=== PATIENT | male | born 1935 | race Caucasian/White ===

== ENCOUNTER 2017-07-07 17:51 | Inpatient (IN) | payer MEDICARE, OTHER ==
[2017-07-07 18:55] LABS: BASO # 0.1 10^3/uL (0.0-0.2); BASO % 0.7 % (0.0-1.0); EOS # 0.1 10^3/uL (0.0-0.50); EOS % 1.6 % (0.0-3.0); HEMATOCRIT 39.2 % (42.0-52.0); HEMOGLOBIN 13.2 g/dl (13.5-17.5); IMMATURE GRANULOCYTE % 0.9 % (0-3.0); LYMPH # 1.8 10^3/uL (1.5-4.5); LYMPH % 21.5 % (24.0-44.0); MEAN CORPUSCULAR HEMOGLOBIN 35.1 pg (27.0-33.0); MEAN CORPUSCULAR HGB CONC 33.7 g/dl (32.0-36.5); MEAN CORPUSCULAR VOLUME 104.3 fl (80.0-96.0); MONO % 12.2 % (0.0-5.0); NEUTROPHILS # 5.4 10^3/uL (1.8-7.7); NEUTROPHILS % 63.1 % (36.0-66.0); PLATELET COUNT, AUTOMATED 196 10^3/uL (150-450); RED BLOOD COUNT 3.76 10^6/uL (4.30-6.10); RED CELL DISTRIBUTION WIDTH 13.2 % (11.5-14.5); WHITE BLOOD COUNT 8.5 10^3/uL (4.0-10.0)
[2017-07-07] MEDS: NS 1,000 ML IV (19:10)
[2017-07-07 19:11] LABS: INR 2.63; PROTHROMBIN TIME 29.2 SECONDS (12.4-14.5)
[2017-07-07 19:20] LABS: ALBUMIN 3.8 GM/DL (3.2-5.2); ALBUMIN/GLOBULIN RATIO 0.97 (1.00-1.93); ALKALINE PHOSPHATASE 75 U/L (45-117); ALT/SGPT 19 U/L (12-78); ANION GAP 8 MEQ/L (8-16); AST/SGOT 15 U/L (7-37); BILIRUBIN,DIRECT 0.1 MG/DL (0.0-0.2); BILIRUBIN,TOTAL 0.3 MG/DL (0.2-1.0); BLOOD UREA NITROGEN 30 MG/DL (7-18); CALCIUM LEVEL 8.6 MG/DL (8.8-10.2); CARBON DIOXIDE LEVEL 29 MEQ/L (21-32); CHLORIDE LEVEL 105 MEQ/L (98-107); GLOMERULAR FILTRATION RATE > 60.0 (>35); GLUCOSE, FASTING 129 MG/DL (70-100); LIPASE 108 U/L (73-393); POTASSIUM SERUM 3.8 MEQ/L (3.5-5.1); SODIUM LEVEL 142 MEQ/L (136-145); TOTAL PROTEIN 7.7 GM/DL (6.4-8.2)
[2017-07-07] MEDS: PANTOPRAZOLE 40MG TAB (PROTONIX) PO (19:50)
[2017-07-07] MEDS ORDERED: ONDANSETRON 4MG/2ML VIAL (J2405) IV (20:45)
[2017-07-07] MEDS ORDERED: CAPSAICIN 0.025% CR 60 GM TOP (22:00)
[2017-07-07] MEDS ORDERED: POLYVINYL ALCOHOL OPHTH SOLN 15 ML(LIQUITEARS) OU (22:00)
[2017-07-07] MEDS: TERAZOSIN 5 MG CAP PO (23:58)
[2017-07-07] MEDS: diphenhydrAMINE 50 MG CAP PO (23:58)
[2017-07-07] MEDS: FAMOTIDINE 20 MG TAB PO (23:58)
[2017-07-08 00:10] LABS: HEMATOCRIT 37.2 % (42.0-52.0); HEMOGLOBIN 12.1 g/dl (13.5-17.5); MEAN CORPUSCULAR HEMOGLOBIN 34.3 pg (27.0-33.0); MEAN CORPUSCULAR HGB CONC 32.5 g/dl (32.0-36.5); MEAN CORPUSCULAR VOLUME 105.4 fl (80.0-96.0); PLATELET COUNT, AUTOMATED 168 10^3/uL (150-450); RED BLOOD COUNT 3.53 10^6/uL (4.30-6.10); RED CELL DISTRIBUTION WIDTH 13.2 % (11.5-14.5); WHITE BLOOD COUNT 7.8 10^3/uL (4.0-10.0)
[2017-07-08 04:15] LABS: HEMATOCRIT 35.9 % (42.0-52.0); HEMOGLOBIN 11.8 g/dl (13.5-17.5); MEAN CORPUSCULAR HEMOGLOBIN 34.5 pg (27.0-33.0); MEAN CORPUSCULAR HGB CONC 32.9 g/dl (32.0-36.5); PLATELET COUNT, AUTOMATED 166 10^3/uL (150-450); RED BLOOD COUNT 3.42 10^6/uL (4.30-6.10); RED CELL DISTRIBUTION WIDTH 13.2 % (11.5-14.5); WHITE BLOOD COUNT 6.7 10^3/uL (4.0-10.0)
[2017-07-08 04:35] LABS: INR 2.59; PROTHROMBIN TIME 28.8 SECONDS (12.4-14.5)
[2017-07-08 04:47] LABS: ANION GAP 6 MEQ/L (8-16); BLOOD UREA NITROGEN 22 MG/DL (7-18); CALCIUM LEVEL 8.2 MG/DL (8.8-10.2); CARBON DIOXIDE LEVEL 31 MEQ/L (21-32); CHLORIDE LEVEL 107 MEQ/L (98-107); CREATININE FOR GFR 0.81 MG/DL (0.70-1.30); GLOMERULAR FILTRATION RATE > 60.0 (>35); GLUCOSE, FASTING 97 MG/DL (70-100); POTASSIUM SERUM 3.7 MEQ/L (3.5-5.1); SODIUM LEVEL 144 MEQ/L (136-145)
[2017-07-08] MEDS: LACTIC ACID 12% LOTION 225 GM BTL TOP ×2 (09:00→20:33)
[2017-07-08] MEDS: FUROSEMIDE 20 MG TAB PO ×2 (09:00→18:00)
[2017-07-08] MEDS: POTASSIUM CHLORIDE 10 MEQ SR TABLET PO (09:01)
[2017-07-08] MEDS: traMADol 50 MG TAB PO ×5 (09:03→20:31)
[2017-07-08] MEDS: PANTOPRAZOLE 40MG TAB (PROTONIX) PO (09:04)
[2017-07-08] MEDS: FAMOTIDINE 20 MG TAB PO ×2 (09:04→20:33)
[2017-07-08] MEDS: ATENOLOL 50 MG TAB PO (10:49)
[2017-07-08] MEDS: SIMVASTATIN 40 MG TAB PO (14:24)
[2017-07-08] MEDS: WARFARIN SOD 7.5 MG TAB PO (18:01)
[2017-07-08] MEDS: diphenhydrAMINE 50 MG CAP PO (20:33)
[2017-07-08] MEDS: TERAZOSIN 5 MG CAP PO (20:33)
[2017-07-09] MEDS ORDERED: SLF 3 ML SYR IV (03:30)
[2017-07-09 05:40] LABS: HEMATOCRIT 36.3 % (42.0-52.0); HEMOGLOBIN 11.8 g/dl (13.5-17.5)
[2017-07-09 05:50] LABS: INR 2.24; PROTHROMBIN TIME 25.6 SECONDS (12.4-14.5)
[2017-07-09 05:52] LABS: ANION GAP 5 MEQ/L (8-16); BLOOD UREA NITROGEN 17 MG/DL (7-18); CALCIUM LEVEL 8.6 MG/DL (8.8-10.2); CARBON DIOXIDE LEVEL 31 MEQ/L (21-32); CHLORIDE LEVEL 104 MEQ/L (98-107); CREATININE FOR GFR 0.84 MG/DL (0.70-1.30); GLOMERULAR FILTRATION RATE > 60.0 (>35); GLUCOSE, FASTING 110 MG/DL (70-100); POTASSIUM SERUM 3.5 MEQ/L (3.5-5.1); SODIUM LEVEL 140 MEQ/L (136-145)
[2017-07-09] MEDS: SLF 3 ML SYR IV ×2 (06:00→13:42)
[2017-07-09] MEDS: LACTIC ACID 12% LOTION 225 GM BTL TOP (09:00)
[2017-07-09] MEDS: ATENOLOL 50 MG TAB PO (09:00)
[2017-07-09] MEDS: FUROSEMIDE 20 MG TAB PO (09:16)
[2017-07-09] MEDS: PANTOPRAZOLE 40MG TAB (PROTONIX) PO (09:18)
[2017-07-09] MEDS: traMADol 50 MG TAB PO ×2 (09:18→13:42)
[2017-07-09] MEDS: POTASSIUM CHLORIDE 10 MEQ SR TABLET PO (09:18)
[2017-07-09] MEDS: FAMOTIDINE 20 MG TAB PO (09:20)
[2017-07-09] MEDS: SIMVASTATIN 40 MG TAB PO (13:42)
== END 2017-07-09 14:47 | disposition home or self-care (01) | DRG 378 ==
LOC: M ED 17:51 → M ED INP 20:32 → M PCU 22:22
DX: K62.5 Hemorrhage of anus and rectum (principal); D62 Acute posthemorrhagic anemia; I50.9 Heart failure, unspecified; I48.91 Unspecified atrial fibrillation; Z79.01 Long term (current) use of anticoagulants; I11.0 Hypertensive heart disease with heart failure; I25.10 Atherosclerotic heart disease of native coronary artery without angina pectoris; Z79.899 Other long term (current) drug therapy; R00.1 Bradycardia, unspecified; E11.9 Type 2 diabetes mellitus without complications; Z96.651 Presence of right artificial knee joint; Z96.652 Presence of left artificial knee joint; Z95.2 Presence of prosthetic heart valve; Z87.891 Personal history of nicotine dependence; K64.8 Other hemorrhoids; K63.5 Polyp of colon

== ENCOUNTER 2017-09-05 10:00 | Day surgery (SDC) | payer MEDICARE, OTHER ==
[2017-09-05] MEDS ORDERED: PROPOFOL 200 MG/20 ML VIAL As Ordered (10:52)
[2017-09-05] MEDS ORDERED: LIDOCAINE 2% INJ 100 MG/5 ML SDV (FOR ANES.) As Ordered (10:52)
[2017-09-05] MEDS: NS 1,000 ML IV (11:09)
== END 2017-09-05 13:30 | disposition home or self-care (01) ==
LOC: M OPP 10:00
DX: K62.5 Hemorrhage of anus and rectum (principal); I48.91 Unspecified atrial fibrillation; Z95.5 Presence of coronary angioplasty implant and graft; I25.10 Atherosclerotic heart disease of native coronary artery without angina pectoris; I11.0 Hypertensive heart disease with heart failure; E78.5 Hyperlipidemia, unspecified; R00.8 Other abnormalities of heart beat; I50.9 Heart failure, unspecified; E11.9 Type 2 diabetes mellitus without complications; M10.9 Gout, unspecified; K21.9 Gastro-esophageal reflux disease without esophagitis; D64.9 Anemia, unspecified; M19.90 Unspecified osteoarthritis, unspecified site; G47.30 Sleep apnea, unspecified; Z85.46 Personal history of malignant neoplasm of prostate; Z92.3 Personal history of irradiation; N40.1 Benign prostatic hyperplasia with lower urinary tract symptoms; Z96.653 Presence of artificial knee joint, bilateral; Z87.891 Personal history of nicotine dependence; Z88.5 Allergy status to narcotic agent; Z79.82 Long term (current) use of aspirin; Z79.899 Other long term (current) drug therapy; Z79.01 Long term (current) use of anticoagulants; Z79.84 Long term (current) use of oral hypoglycemic drugs
CPT/HCPCS: 45378

== ENCOUNTER → 2017-09-13 | Outpatient (CLI) | payer MEDICARE, OTHER ==
[2017-09-13 10:22] LABS: INR 0.98; PROTHROMBIN TIME 13.1 SECONDS (12.1-14.4)
== END ==
LOC: M LAB 09:38
DX: M43.10 Spondylolisthesis, site unspecified (principal); M25.522 Pain in left elbow; M51.36 Other intervertebral disc degeneration, lumbar region; M79.1 Myalgia; M47.817 Spondylosis without myelopathy or radiculopathy, lumbosacral region; Z79.01 Long term (current) use of anticoagulants
CPT/HCPCS: 85610

== ENCOUNTER 2017-10-03 06:50 | Day surgery (SDC) | payer MEDICARE, OTHER ==
[2017-10-03] MEDS ORDERED: NS 1,000 ML IV (07:00)
[2017-10-03] MEDS ORDERED: PROPOFOL 200 MG/20 ML VIAL As Ordered (08:02)
[2017-10-03] MEDS ORDERED: LIDOCAINE 2% INJ 100 MG/5 ML SDV (FOR ANES.) As Ordered (08:02)
== END 2017-10-03 09:22 | disposition home or self-care (01) ==
LOC: M OPP 06:50
DX: D12.3 Benign neoplasm of transverse colon (principal); K64.8 Other hemorrhoids; Q43.8 Other specified congenital malformations of intestine; K92.1 Melena; I10 Essential (primary) hypertension; E78.5 Hyperlipidemia, unspecified; E11.9 Type 2 diabetes mellitus without complications; G47.30 Sleep apnea, unspecified; K21.9 Gastro-esophageal reflux disease without esophagitis; M19.90 Unspecified osteoarthritis, unspecified site; I48.91 Unspecified atrial fibrillation; Z79.82 Long term (current) use of aspirin; Z79.899 Other long term (current) drug therapy; Z95.5 Presence of coronary angioplasty implant and graft; Z96.653 Presence of artificial knee joint, bilateral; Z85.46 Personal history of malignant neoplasm of prostate; Z92.3 Personal history of irradiation
CPT/HCPCS: 45385

== ENCOUNTER → 2018-08-29 | Outpatient (CLI) | payer MEDICARE, OTHER ==
[~2018-08-29] MED LIST: ACET1TAB55 PO; ACET500T15 PO; ALLO10TA PO; AMMO12CR7 TOP; AMMO12LO TOP; ARTISOL2 OP; ASPI81CH49 PO; ASPI81TA26 PO; ATEN25TA PO; ATEN50TA2 PO; BENA25TA10 PO; CAPS0.022 TOP; CAPS0.1C2 EX; CLAR10CA3 PO; CLOP75TA2 PO; COUM1TAB17 PO; COUM2.5T17 PO; COUM7.5T PO; DIPH50CA PO; DULC5TAB PO; K-TA10TA2 PO; LASI20TA3 PO; LASI40TA9 PO; LIDO4CRE4 TOP; LIDO5DIS41 TD; LORA10CA PO; LUBR1DRO OU; METF500T13 PO; MIRA3350 PO; MIRA33504 PO; MULTCAP11 PO; NITR0.4S14 SL; PANT40TA3 PO; POTA10TA16 PO; PREV1.1G DT; RANI150T PO; RANI1SYP PO; RENATROPHIN PO; SIMV80TA13 PO; STOO100C PO; TERA10CA3 PO; TERA5CAP3 PO; TRAM50TA2 PO; VITMTA PO; ZYLO300T6 PO; [UNRECOGNIZED DRUG - OTHER] PO
--- NOTE | 2018-08-29 19:36 | REP ---
CHEST, TWO VIEWS: Two views of the chest are performed and compared to prior study of 08/10/2010. The stomach is moderately distended with air. There is mild elevation of the left hemidiaphragm. There is mild bibasilar fibroatelectatic change. The heart is upper limits of normal in size. There is mild calcification and tortuosity of the thoracic aorta. The mediastinal silhouette is unchanged. There are degenerative changes of the spine. IMPRESSION: Mild bibasilar fibroatelectatic changes. No acute infiltrate. Electronically Signed by Andrés Allen MD 08/29/2018 07:51 P
[2018-08-29 20:02] LABS: BASO # 0.1 10^3/uL (0.0-0.2); BASO % 0.9 % (0.0-1.0); EOS # 0.2 10^3/uL (0.0-0.50); EOS % 1.7 % (0.0-3.0); LYMPH % 21.6 % (24.0-44.0); MEAN CORPUSCULAR HEMOGLOBIN 35.7 pg (27.0-33.0); MEAN CORPUSCULAR HGB CONC 33.3 g/dl (32.0-36.5); MEAN CORPUSCULAR VOLUME 107.1 fl (80.0-96.0); MONO # 1.3 10^3/uL (0.0-0.8); MONO % 13.7 % (0.0-5.0); NEUTROPHILS # 5.6 10^3/uL (1.8-7.7); NEUTROPHILS % 60.7 % (36.0-66.0); PLATELET COUNT, AUTOMATED 229 10^3/uL (150-450); WHITE BLOOD COUNT 9.2 10^3/uL (4.0-10.0)
== END ==
LOC: M ADAMS 16:49
PROVIDERS: ATTEND Physician Assistant Medical
DX: J20.9 Acute bronchitis, unspecified (principal)

== ENCOUNTER 2018-11-07 17:14 | Emergency (ER) | payer MEDICARE, OTHER ==
[~2018-11-07] VITALS: Ht 185.4 cm; Wt 131.8 kg
[~2018-11-07 17:14] MED LIST changes: +MM S100C PO; -STOO100C PO
--- NOTE | 2018-11-07 18:04 | REPVR ---
EXAM: CT Head Without Contrast EXAM DATE/TIME: 11/07/2018 5:31 PM CLINICAL HISTORY: 83 years old, male; Injury or trauma; Fall; Initial encounter; Blunt trauma (contusions or hematomas); Consciousness not specified; Additional info: Fall on coumadin TECHNIQUE: Imaging protocol: Computed tomography images of the head without contrast. Radiation optimization: All CT scans at this facility use at least one of these dose optimization techniques: automated exposure control; mA and/or kV adjustment per patient size (includes targeted exams where dose is matched to clinical indication); or iterative reconstruction. COMPARISON: No relevant prior studies available. FINDINGS: Brain: Ventricles, basilar cisterns, and sulci are normal in size for age. No intracranial mass, mass effect or midline shift. No acute intracranial hemorrhage. No focal effacement of cortical sulci to indicate acute cortical infarct. Mild decreased attenuation in periventricular/centrum semiovale white matter. Bones/joints: No calvarial fracture or destructive process. Sinuses: Imaged paranasal sinuses are clear. Mastoid air cells: Mastoid air cells are normally aerated. Orbits: Imaged orbits are unremarkable. Soft tissues: Large right forehead and periorbital scalp hematoma. IMPRESSION: Right supraorbital and forehead extracranial scalp hematoma. No underlying acute intracranial abnormality. Electronically signed by: Carlos Alberto Machuca On 11/07/2018 18:04:34 PM
--- NOTE | 2018-11-07 18:06 | REPVR ---
EXAM: CT Cervical Spine Without Contrast EXAM DATE/TIME: 11/07/2018 5:31 PM CLINICAL HISTORY: 83 years old, male; Injury or trauma; Fall; Initial encounter; Blunt trauma; Additional info: Fall on coumadin TECHNIQUE: Imaging protocol: Computed tomography images of the cervical spine without contrast. Radiation optimization: All CT scans at this facility use at least one of these dose optimization techniques: automated exposure control; mA and/or kV adjustment per patient size (includes targeted exams where dose is matched to clinical indication); or iterative reconstruction. COMPARISON: No relevant prior studies available. FINDINGS: Vertebrae: No traumatic segmental malalignment of cervical spine or craniocervical junction. Vertebral body height is maintained at all levels. No acute fracture. No destructive or blastic cervical spine osseous lesion. Discs/Spinal canal/Neural foramina: Intervertebral disc height is decreased at multiple levels, with typical degenerative pattern and associated endplate, articular pillar and uncovertebral spurs. Moderately severe osseous spinal canal stenosis and neural foraminal stenosis C4-5, C5-6 and C6-7 and moderate right neural foraminal stenosis at C3-4 secondary to uncovertebral arthropathy Prevertebral Space: Prevertebral soft tissues demonstrate no asymmetry. Lungs: No concerning abnormality of the imaged lung apices. IMPRESSION: 1. No acute fracture or traumatic subluxation of the cervical spine. 2. 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 Electronically signed by: Carlos Alberto Machuca On 11/07/2018 18:06:04 PM
--- NOTE | 2018-11-07 18:07 | REPVR ---
EXAM: CT Maxillofacial Without Contrast EXAM DATE/TIME: 11/07/2018 5:31 PM CLINICAL HISTORY: 83 years old, male; Injury or trauma; Fall; Initial encounter; Blunt trauma (contusions or hematomas); Forehead and orbit/periorbital; Right; Additional info: Fall on coumadin TECHNIQUE: Imaging protocol: Computed tomography images of the face without contrast. Radiation optimization: All CT scans at this facility use at least one of these dose optimization techniques: automated exposure control; mA and/or kV adjustment per patient size (includes targeted exams where dose is matched to clinical indication); or iterative reconstruction. COMPARISON: No relevant prior studies available. FINDINGS: Right periorbital and right supraorbital forehead soft tissue hematoma is present. Mandible is intact and the TMJ's align normally. Maxilla, hard palate and pterygoid plates are intact. Zygomaticomaxillary complexes and zygomatic arches appear normal. Paranasal sinuses show no acute fracture. Paranasal sinuses show no abnormal opacification. Mastoid air cells are normally aerated. No acute orbital fracture. Orbital soft tissues are unremarkable. No acute nasal bone or nasal septal fracture. Visualized skull base structures are unremarkable. Posterior nasopharynx soft tissues are symmetric. IMPRESSION: Right periorbital and supraorbital scalp hematoma No acute facial fracture. Electronically signed by: Carlos Alberto Machuca On 11/07/2018 18:07:08 PM
[2018-11-07] MEDS ORDERED: LIDOCAINE W/EPINEPHRINE 1% 20ML VIAL SC ONE (18:45)
[2018-11-07] MEDS ORDERED: DERMABOND TOPICAL SKIN ADHESIVE TOP ONE (18:45)
--- NOTE | 2018-11-07 18:50 | REP ---
Right hand four views: There is a fracture at the base of the fifth digit proximal phalange. There is diffuse demineralization. 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 There is advanced osteoarthritis at the thumb metacarpal trapezial joint. Electronically Signed by Andrés Aguilera MD 11/07/2018 06:42 P
[2018-11-07 18:57] LABS: HEMATOCRIT 39.6 % (42.0-52.0); HEMOGLOBIN 13.2 g/dl (13.5-17.5); MEAN CORPUSCULAR HEMOGLOBIN 34.6 pg (27.0-33.0); MEAN CORPUSCULAR HGB CONC 33.3 g/dl (32.0-36.5); MEAN CORPUSCULAR VOLUME 103.9 fl (80.0-96.0); PLATELET COUNT, AUTOMATED 187 10^3/uL (150-450); RED BLOOD COUNT 3.81 10^6/uL (4.30-6.10); WHITE BLOOD COUNT 9.3 10^3/uL (4.0-10.0)
[2018-11-07 19:09] LABS: INR 2.24; PROTHROMBIN TIME 24.6 SECONDS (11.8-14.0)
[2018-11-07 19:15] LABS: BLOOD UREA NITROGEN 25 MG/DL (7-18); CALCIUM LEVEL 8.7 MG/DL (8.8-10.2); CARBON DIOXIDE LEVEL 35 MEQ/L (21-32); CHLORIDE LEVEL 102 MEQ/L (98-107); CREATININE FOR GFR 0.93 MG/DL (0.70-1.30); GLOMERULAR FILTRATION RATE > 60.0 (>35); GLUCOSE, FASTING 127 MG/DL (70-100); SODIUM LEVEL 141 MEQ/L (136-145)
[2018-11-07] MEDS ORDERED: ceFAZolin SOD 1 GM in D5W MINI-BAG PLUS 50 ML IV ONE (19:15)
--- NOTE | 2018-11-07 20:00 | REPVR ---
EXAM: CT Right Upper Extremity Without Contrast, Hand EXAM DATE/TIME: 11/07/2018 7:21 PM CLINICAL HISTORY: 83 years old, male; Injury or trauma; Fall; Initial encounter; Fracture, traumatic injury; Nonunion; Right; Little finger; Additional info: Right fifth digit fracture TECHNIQUE: Imaging protocol: CT of the Right upper extremity without contrast was performed. Exam focused on the hand. Radiation optimization: All CT scans at this facility use at least one of these dose optimization techniques: automated exposure control; mA and/or kV adjustment per patient size (includes targeted exams where dose is matched to clinical indication); or iterative reconstruction. COMPARISON: CR Hand, complete 11/07/2018 6:32 PM FINDINGS: Positioning and image projections are nonstandard. Impacted intra-articular fracture at the base of the small finger proximal phalanx, with apex volar and mild apex radial angulation area in no involvement of the distal end of the bone. No underlying lesion. Fracture margins appear relatively acute. No other acute fracture. Polyarticular degenerative joint space narrowing and osteophyte formation is present, most significant at the thumb CMC joint. IMPRESSION: Impacted nondisplaced intra-articular fracture through the base of the small finger proximal phalanx with angulation as described above. Fracture margins appear relatively acute. Electronically signed by: Carlos Alberto Machuca On 11/07/2018 20:00:06 PM
--- NOTE | 2018-11-07 20:40 | REPVR ---
EXAM: CT Chest Without Contrast EXAM DATE/TIME: 11/07/2018 8:18 PM CLINICAL HISTORY: 83 years old, male; Chest wall pain and sternal or substernal pain and other: Rib; Patient HX: HX broken ribs, doesn't remember which ones; Additional info: Rib pain, right TECHNIQUE: Imaging protocol: Computed tomography images of the chest without contrast. 3D rendering: MIP reconstructed images were created and reviewed. Radiation optimization: All CT scans at this facility use at least one of these dose optimization techniques: automated exposure control; mA and/or kV adjustment per patient size (includes targeted exams where dose is matched to clinical indication); or iterative reconstruction. COMPARISON: DX CHEST 2 VIEW 08/29/2018 4:41 PM FINDINGS: Limited trauma evaluation without IV contrast. Changes of gynecomastia are present. Thoracic aorta shows atherosclerotic change. No focal dilatation. No mediastinal hematoma. No enlarged lymph nodes. No hemothorax or pneumothorax. No evidence of lung contusion, aspiration or concerning lung mass. No central endobronchial lesion. Lung parenchyma is unremarkable except for dependent atelectasis. Multi-chamber cardiac dilatation is noted. Atherosclerotic calcifications in the coronary vessels. No acute displaced fractures involving ribs, thoracic spine or shoulder girdle. Multi-level, age-related thoracic degenerative disc disease is present. Gallstones are present in the gallbladder lumen. Probable bilateral fat density adrenal adenomas measuring 1 cm each. Incompletely imaged exophytic 5.2 cm simple fluid density right renal lesion. IMPRESSION: No CT evidence of acute thoracic trauma. No evidence of sternomanubrial fracture or rib fracture and no intrathoracic trauma sequelae. Cholelithiasis. Probable right renal cyst, incompletely imaged but demonstrating simple fluid density. This could be confirmed with outpatient sonography. Benign bilateral adrenal adenomas. Electronically signed by: Carlos Alberto Machuca On 11/07/2018 20:40:00 PM
[2018-11-07] MEDS ORDERED: ADACEL/BOOSTRIX VACCINE (DIPHTH/PERTUSS/ACELL/TETANUS)0.5ML SYR (90715) IM ONE (21:15)
[2018-11-07] MEDS ORDERED: KEFL500C17 PO (21:18)
[2018-11-07 21:34] VITALS: BP 135/64
--- NOTE | 2018-11-10 08:58 | ED PDOC ---
Post-Departure Follow-Up dr cates faxed formal report of ct chest for fu César Sood MD Nov 10, 2018 08:58
[2018-11-11] MEDS ORDERED: ZOCO80TA PO (16:20)
[2018-11-11] MEDS ORDERED: CLAR10CA3 PO (16:20)
== END 2018-11-07 21:57 | disposition home or self-care (01) ==
LOC: M ED 17:14
DX: S62.606B Fracture of unspecified phalanx of right little finger, initial encounter for open fracture (principal); M20.091 Other deformity of right finger(s); M19.041 Primary osteoarthritis, right hand; S09.90XA Unspecified injury of head, initial encounter; S61.411A Laceration without foreign body of right hand, initial encounter; S01.91XA Laceration without foreign body of unspecified part of head, initial encounter; S02.2XXA Fracture of nasal bones, initial encounter for closed fracture; S00.83XA Contusion of other part of head, initial encounter; S00.03XA Contusion of scalp, initial encounter; W01.10XA Fall on same level from slipping, tripping and stumbling with subsequent striking against unspecified object, initial encounter; Y92.89 Other specified places as the place of occurrence of the external cause; Y93.9 Activity, unspecified; Y99.9 Unspecified external cause status; M50.30 Other cervical disc degeneration, unspecified cervical region; I48.91 Unspecified atrial fibrillation; I25.10 Atherosclerotic heart disease of native coronary artery without angina pectoris; I50.9 Heart failure, unspecified; E11.9 Type 2 diabetes mellitus without complications; I10 Essential (primary) hypertension; Z79.84 Long term (current) use of oral hypoglycemic drugs; Z79.899 Other long term (current) drug therapy
CPT/HCPCS: 12001; 12013; 70450; 70486; 71250; 72125; 73130; 73200; 80048; 85027; 85610; 85730; 90471; 90715; 96365; 99284; J0690

== ENCOUNTER 2018-11-09 12:16 | Emergency (ER) | payer MEDICARE, OTHER ==
[~2018-11-09] VITALS: Ht 185.4 cm; Wt 131.8 kg
[~2018-11-09 12:16] MED LIST changes: +KEFL500C17 PO
[2018-11-09] MEDS ORDERED: CEPHALEXIN 500 MG CAP PO ONE (13:30)
[2018-11-09] MEDS ORDERED: KEFL500C17 PO (14:02)
[2018-11-09 14:24] VITALS: BP 140/86
[2018-11-11] MEDS ORDERED: ZOCO80TA PO (16:20)
[2018-11-11] MEDS ORDERED: CLAR10CA3 PO (16:20)
== END 2018-11-09 14:26 | disposition home or self-care (01) ==
LOC: M ED 12:16
DX: S62.600D Fracture of unspecified phalanx of right index finger, subsequent encounter for fracture with routine healing (principal); X58.XXXD Exposure to other specified factors, subsequent encounter; Y92.89 Other specified places as the place of occurrence of the external cause; I11.0 Hypertensive heart disease with heart failure; I50.9 Heart failure, unspecified; E11.9 Type 2 diabetes mellitus without complications; I48.91 Unspecified atrial fibrillation; Z79.899 Other long term (current) drug therapy; Z79.84 Long term (current) use of oral hypoglycemic drugs

== ENCOUNTER → 2018-11-10 | Outpatient (REF) | payer MEDICARE, OTHER ==
[~2018-11-10] MED LIST changes: +ZOCO80TA PO
[2018-11-10 13:54] LABS: INR 1.32; PROTHROMBIN TIME 16.1 SECONDS (11.8-14.0)
== END ==
LOC: M LABDRAW1 12:14
PROVIDERS: ATTEND Orthopaedic Surgery Sports Medicine
DX: S62.636A Displaced fracture of distal phalanx of right little finger, initial encounter for closed fracture (principal); Z79.01 Long term (current) use of anticoagulants; X58.XXXA Exposure to other specified factors, initial encounter; Y92.9 Unspecified place or not applicable

== ENCOUNTER 2018-11-13 14:56 | Day surgery (SDC) | payer MEDICARE, OTHER ==
[~2018-11-13] VITALS: Ht 185.4 cm; Wt 133.8 kg
[~2018-11-13 14:56] MED LIST changes: +LIDOCAINE 1% MDV 20ML VIAL SQ PRN; +LR 1,000 ML IV ONE; +ceFAZolin SOD 2 GM in IV 1 EA IV ONE
[2018-11-13 15:39] LABS: INR 1.11; PROTHROMBIN TIME 14.1 SECONDS (11.8-14.0)
[2018-11-13] MEDS ORDERED: propofoL 500 MG/50 ML VIAL As Ordered ONE ×2 (18:24→19:17)
[2018-11-13] MEDS ORDERED: fentaNYL 100 MCG/2 ML INJECTION (J3010) As Ordered ONE (18:38)
[2018-11-13] MEDS ORDERED: MIDAZOLAM INJ 2 MG/2 ML VIAL (J2250) As Ordered ONE (18:38)
[2018-11-13] MEDS ORDERED: LIDOCAINE 2% INJ 100 MG/5 ML SDV (FOR ANES.) As Ordered ONE (18:39)
[2018-11-13] MEDS ORDERED: dexameTHASONE 4 MG/ML 1ML VIAL (J1100) As Ordered ONE (18:40)
[2018-11-13] MEDS ORDERED: ONDANSETRON 4MG/2ML VIAL (J2405) As Ordered ONE (18:40)
[2018-11-13] MEDS ORDERED: BUPIVACAINE/EPIN 0.5% 30 ML VIAL As Ordered ONE (18:43)
[2018-11-13] MEDS ORDERED: oxyCODONE 5MG TAB PO PRN ×2 (20:15)
[2018-11-13] MEDS ORDERED: fentaNYL 100 MCG/2 ML INJECTION (J3010) IV PRN (20:15)
[2018-11-13] MEDS ORDERED: ONDANSETRON 4MG/2ML VIAL (J2405) IV PRN (20:15)
[2018-11-13] MEDS ORDERED: MORPHINE 4 MG/ML 1ML VIAL/SYRINGE (J2270) IV PRN (20:15)
[2018-11-13] MEDS ORDERED: ACETAMINOPHEN 500 MG TAB PO PRN (20:15)
[2018-11-13] MEDS ORDERED: LR 1,000 ML IV SCH (20:15)
[2018-11-13 21:10] VITALS: BP 147/69
--- NOTE | 2018-11-13 23:27 | RO ---
DATE OF PROCEDURE: 11/13/2018 PREPROCEDURE DIAGNOSIS: Right displaced open 5th metacarpal fracture with traumatic laceration 3 cm. POSTPROCEDURE DIAGNOSIS: Right displaced open 5th metacarpal fracture with traumatic laceration 3 cm. PROCEDURES: 1. Irrigation and debridement open fracture of the right proximal phalanx. 2. Open reduction internal fixation right proximal phalanx of the 5th small finger. 3. Complex closure of wound 3-1/2 cm. SURGEON: Matt Forrester MD ORTHODONTIC BAND MAKER:none ANESTHESIA: Monitored anesthesia care (MAC). PREOPERATIVE ANTIBIOTICS: 2 grams of Ancef. COMPLICATIONS: None. TOURNIQUET TIME: 25 minutes. INDICATIONS: This is a pleasant 83-year-old male who fell earlier this week and suffered a traumatic laceration over the volar aspect of his 5th metacarpophalangeal (MCP) that resulted in an open fracture of the 5th proximal phalanx with severe angulation. We discussed how in order to increase the functional use of his hand and able to create a tight shoe repairer apprentice, I recommended operative intervention along with irrigation and debridement of the open fracture and closure of the complex wound. The patient acknowledged, risks and benefits were discussed including but not limited to infection, malunion, nonunion, and damage to surrounding structures. DESCRIPTION OF PROCEDURE: The patient was brought back to the operating room (OR) supine, underwent moderate sedation at which point we did a local injection of 20 mL of 0.50% Marcaine with epinephrine in the form of a digital block. Then, the patient underwent prep and drape in the usual fashion. Tourniquet was put up to 250 mmHg at which point our attention was to the open laceration. We irrigated and debrided sharply the skin, subcutaneous tissue and bone. Once this was thoroughly irrigated and debrided and all healthy tissue was present and necrotic was removed. We turned our attention to the fracture. We were able to visualize this on C- arm. Through manual indirect effort, we were able to reduce the fracture, and then we used two 0.45 mm K-wires in a cross formation from the base of the phalanx to pin the fracture in place. At which point, we confirmed reduction on C-arm, we were happy with this. And then we cut and bent the wires, irrigated the wound one more time, closed it with #3-0 Monocryl. Dressed the wound with Adaptic gauze, sterile Webril and placed the patient in an ulnar gutter splint, encasing the 4th and 5th digit. At which point, tourniquet was let down at 25 minutes. Patient is in the intrinsic plus ulnar gutter splint. The patient was awakened from anesthesia without issue and taken to the post-anesthesia care unit (PACU) in stable condition. POSTOPERATIVE PLAN: The patient will be in a splint for approximately 2 weeks at which point we will followup and check his wound. At which point, he will be converted to a removable brace and start hand physical therapy. The pins will stay in place for 4-5 weeks at which point they will be removed and continue with hand physical therapy. ALEXANDRO
--- NOTE | 2018-11-14 08:56 | REP ---
Right fifth finger series: Five views. History: Intraoperative imaging. 61 seconds of fluoroscopy time is reported. Findings: A sequence of five a last image hold fluoroscopically obtained spot radiographs of the right fifth proximal phalanx document operative pinning for proximal phalangeal fracture. Electronically Signed by Adelso Lundberg MD 11/14/2018 03:59 P
[2018-12-17] MEDS ORDERED: ATEN50TA2 PO (07:59)
[2018-12-17] MEDS ORDERED: KEFL500C17 PO (08:00)
[2018-12-17] MEDS ORDERED: ASPI81CH33 PO (08:00)
[2018-12-17] MEDS ORDERED: POTA1TAB14 PO (08:00)
== END 2018-11-13 21:53 | disposition home or self-care (01) ==
LOC: M SDC 14:56
PROVIDERS: ATTEND Orthopaedic Surgery Hand Surgery
DX: S62.616B Displaced fracture of proximal phalanx of right little finger, initial encounter for open fracture (principal); W19.XXXA Unspecified fall, initial encounter; Y92.89 Other specified places as the place of occurrence of the external cause; Y93.9 Activity, unspecified; Y99.9 Unspecified external cause status; I10 Essential (primary) hypertension; I48.91 Unspecified atrial fibrillation; I25.10 Atherosclerotic heart disease of native coronary artery without angina pectoris; E11.9 Type 2 diabetes mellitus without complications; G47.30 Sleep apnea, unspecified; E78.5 Hyperlipidemia, unspecified; Z85.46 Personal history of malignant neoplasm of prostate; Z92.3 Personal history of irradiation; Z79.899 Other long term (current) drug therapy; Z79.84 Long term (current) use of oral hypoglycemic drugs; Z95.5 Presence of coronary angioplasty implant and graft
CPT/HCPCS: 11012; 26735; 36415; 76000; 85610; J0690; J1100; J2250; J2405; J3010

== ENCOUNTER → 2018-12-18 | Outpatient (CLI) | payer MEDICARE, OTHER ==
[~2018-12-18] MED LIST changes: +ASPI81CH33 PO; -LIDOCAINE 1% MDV 20ML VIAL SQ PRN; -LR 1,000 ML IV ONE; +POTA1TAB14 PO; +WARF-21 PO; +WARF-23 PO; -ceFAZolin SOD 2 GM in IV 1 EA IV ONE
[2018-12-18 10:25] LABS: INR 2.34; PROTHROMBIN TIME 25.5 SECONDS (11.8-14.0)
[2018-12-18 10:26] LABS: PARTIAL THROMBOPLASTIN TIME 35.3 SECONDS (25.0-38.4)
[2018-12-18 10:40] LABS: BLOOD UREA NITROGEN 21 MG/DL (7-18); CALCIUM LEVEL 8.9 MG/DL (8.8-10.2); CARBON DIOXIDE LEVEL 35 MEQ/L (21-32); CHLORIDE LEVEL 98 MEQ/L (98-107); CREATININE FOR GFR 1.03 MG/DL (0.70-1.30); GLOMERULAR FILTRATION RATE > 60.0 (>35); GLUCOSE, FASTING 127 MG/DL (70-100); POTASSIUM SERUM 3.5 MEQ/L (3.5-5.1); SODIUM LEVEL 140 MEQ/L (136-145)
--- NOTE | 2018-12-19 23:14 | ECGEPIP ---
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 Prior on 07/07/17 at 18:36 Electronically Signed on 12-19-2018 23:14:13 EDT by Mulugeta Zavala
== END ==
LOC: M LAB 09:31
PROVIDERS: ATTEND Orthopaedic Surgery Hand Surgery
DX: Z01.812 Encounter for preprocedural laboratory examination (principal); I10 Essential (primary) hypertension; E11.9 Type 2 diabetes mellitus without complications; I48.91 Unspecified atrial fibrillation; Z79.899 Other long term (current) drug therapy

== ENCOUNTER → 2018-12-18 | Outpatient (CLI) | payer MEDICARE, OTHER | LOC: M EKG 09:36 | PROVIDERS: ATTEND Anesthesiology | DX: I48.91 Unspecified atrial fibrillation (principal) ==

== ENCOUNTER 2018-12-22 11:32 | Day surgery (SDC) | payer MEDICARE, OTHER ==
[~2018-12-22] VITALS: Ht 188 cm; Wt 134.3 kg
[~2018-12-22 11:32] MED LIST changes: +BUPIVACAINE/EPIN 0.25% 30 ML VIAL As Ordered ONE; +LIDOCAINE 1% MDV 20ML VIAL SQ PRN; +LR 1,000 ML IV ONE; -WARF-21 PO; -WARF-23 PO
[2018-12-22] MEDS ORDERED: PROPOFOL 500 MG/50 ML VIAL As Ordered ONE (12:00)
[2018-12-22] MEDS ORDERED: ONDANSETRON 4MG/2ML VIAL (J2405) As Ordered ONE (12:00)
[2018-12-22] MEDS ORDERED: LIDOCAINE 2% INJ 100 MG/5 ML SDV (FOR ANES.) As Ordered ONE (12:00)
[2018-12-22] MEDS ORDERED: WARF-23 PO (12:20)
[2018-12-22] MEDS ORDERED: WARF-21 PO (12:20)
[2018-12-22 12:45] LABS: INR 1.15; PROTHROMBIN TIME 14.4 SECONDS (11.8-14.0)
[2018-12-22] MEDS ORDERED: fentaNYL 100 MCG/2 ML INJECTION (J3010) As Ordered ONE (13:05)
[2018-12-22] MEDS ORDERED: HYDROMORPHONE HCL 0.5 MG/ 0.5 ML SYRINGE (J1170 PER 1) IV PRN (15:00)
[2018-12-22] MEDS ORDERED: LR 1,000 ML IV SCH (15:00)
[2018-12-22] MEDS ORDERED: PERCOCET 5MG/325MG TAB PO PRN (15:00)
[2018-12-22] MEDS ORDERED: fentaNYL 100 MCG/2 ML INJECTION (J3010) IV PRN (15:00)
[2018-12-22] MEDS ORDERED: ONDANSETRON 4MG/2ML VIAL (J2405) IV PRN (15:00)
[2018-12-22] MEDS ORDERED: oxyCODONE 5MG TAB PO PRN ×2 (15:45)
[2018-12-22] MEDS ORDERED: MORPHINE 4 MG/ML 1ML VIAL/SYRINGE (J2270) IV PRN (16:00)
[2018-12-22 17:30] VITALS: BP 150/88
--- NOTE | 2018-12-23 07:27 | RO ---
DATE OF PROCEDURE: 12/22/2018 PREOPERATIVE DIAGNOSIS: Left carpal tunnel syndrome. Cubital tunnel syndrome. POSTOPERATIVE DIAGNOSIS: Left carpal tunnel syndrome. Cubital tunnel syndrome. PROCEDURE: Left open carpal tunnel release and cubital tunnel release. SURGEON: Dr. Matt Forrester LEAN MANAGER: FLORIAN Carty, who was instrumental for retraction during important portions of the procedure. ANESTHESIA: INDICATIONS: 83-year-old male who has long standing suffering of cubital and carpal tunnel who has failed nonoperative means. The patient understood the risks and benefits including, but not limited to infection, damage to surrounding structures and incomplete relief. He wanted to proceed. PREOPERATIVE ANTIBIOTICS: None. TOURNIQUET TIME: 24. DESCRIPTION OF PROCEDURE: The patient brought back to the OR supine and underwent general anesthesia at which point a time out was had confirming site, side and surgery. We then injected 10 mL of 0.25% Marcaine with epinephrine at the open carpal tunnel incision along with the cubital tunnel incision with a total of 20 mL. We then prepped the patient in the usual fashion. A second time out confirming site, side and surgery. We then elevated the tourniquet to 250 mmHg. We then turned our attention to the carpal tunnel incision in which we made a longitudinal incision in line with the fourth digit in Banuelos's line. We sharply dissected down while retracting the soft tissue encountering the palmar fascia and the transverse carpal ligament. Once this was adequately released, we were able to evaluate the median nerve. We then released the antebrachial fascia proximally. At which point, we irrigated the wound and closed with #3-0 gut chromic. We then turned our attention to the cubital tunnel incision. We made a longitudinal incision in between the olecranon and medial epicondyle. We sharply dissected the tissue, careful to preserve the medial antebrachial cutaneous nerve branch. We then identified the ulnar nerve at the proximal extent on the anterior portion of the medial tricep. We dissected it proximally off the intermuscular septum with adequate release. We then followed it distally through Tellez ligament and through the superficial and deep fascia of FCU. Once we found there was adequate release, we ranged the elbow to assess for subluxation. This did not occur so we irrigated the wound thoroughly. We then closed the skin with #2-0 Vicryl for subcutaneous tissue and the skin with #3-0 chromic. We then dressed the incisions with Adaptic, gauze, Kerlix and Louis. The tourniquet was let down, it was approximately 24 minutes. The patient was taken stably to the postanesthesia care unit (PACU). POSTOPERATIVE PLAN: The patient will be range of motion as tolerated. No heavy lifting, pushing, pulling. Keep the incision clean, dry and intact. Work on pain control. Will see him in approximately 2 weeks for incision check. ALEXANDRO
== END 2018-12-22 17:45 | disposition home or self-care (01) ==
LOC: M SDC 11:32
PROVIDERS: ATTEND Orthopaedic Surgery Hand Surgery
DX: G56.22 Lesion of ulnar nerve, left upper limb (principal); G56.02 Carpal tunnel syndrome, left upper limb; I11.0 Hypertensive heart disease with heart failure; I48.91 Unspecified atrial fibrillation; I25.10 Atherosclerotic heart disease of native coronary artery without angina pectoris; I50.9 Heart failure, unspecified; E11.9 Type 2 diabetes mellitus without complications; E78.00 Pure hypercholesterolemia, unspecified; K21.9 Gastro-esophageal reflux disease without esophagitis; R06.02 Shortness of breath; M12.9 Arthropathy, unspecified; G47.30 Sleep apnea, unspecified; Z79.899 Other long term (current) drug therapy; Z79.01 Long term (current) use of anticoagulants; Z79.82 Long term (current) use of aspirin; Z95.5 Presence of coronary angioplasty implant and graft; Z87.81 Personal history of (healed) traumatic fracture; Z92.3 Personal history of irradiation; Z85.46 Personal history of malignant neoplasm of prostate; Z96.1 Presence of intraocular lens; Z98.41 Cataract extraction status, right eye; Z98.42 Cataract extraction status, left eye; Z96.642 Presence of left artificial hip joint; Z96.653 Presence of artificial knee joint, bilateral
CPT/HCPCS: 36415; 64718; 64721; 85610; J2405; J3010

== ENCOUNTER 2020-08-17 12:34 | Inpatient (IN) | payer MEDICARE, OTHER ==
[~2020-08-17] VITALS: Ht 188 cm; Wt 115.4 kg
[~2020-08-17 12:34] MED LIST changes: -BUPIVACAINE/EPIN 0.25% 30 ML VIAL As Ordered ONE; -COUM7.5T PO; +COUM7.5T6 PO; -LIDOCAINE 1% MDV 20ML VIAL SQ PRN; -LR 1,000 ML IV ONE; +MAGNESIUM SULFATE 1GM/2ML (8MEQ/2ML) VIAL ONE; +PANT40TA29 PO; -PANT40TA3 PO; +WARF-21 PO; +WARF-23 PO
[2020-08-17 13:56] LABS: BASO # 0.1 10^3/uL (0.0-0.2); BASO % 0.6 % (0.0-1.0); EOS % 0.4 % (0.0-3.0); HEMATOCRIT 33.9 % (42.0-52.0); HEMOGLOBIN 11.5 g/dl (13.5-17.5); LYMPH # 1.2 10^3/uL (1.5-5.0); LYMPH % 11.3 % (24.0-44.0); MEAN CORPUSCULAR HEMOGLOBIN 36.2 pg (27.0-33.0); MEAN CORPUSCULAR HGB CONC 33.9 g/dl (32.0-36.5); MEAN CORPUSCULAR VOLUME 106.6 fl (80.0-96.0); MONO # 1.3 10^3/uL (0.0-0.8); MONO % 12.3 % (2.0-8.0); NEUTROPHILS # 7.9 10^3/uL (1.5-8.5); NEUTROPHILS % 72.9 % (36.0-66.0); PLATELET COUNT, AUTOMATED 238 10^3/uL (150-450); RED BLOOD COUNT 3.18 10^6/uL (4.30-6.10); WHITE BLOOD COUNT 10.8 10^3/uL (4.0-10.0)
[2020-08-17] MEDS ORDERED: POTASSIUM CHLORIDE 10 MEQ SR TABLET PO ONE (14:30)
[2020-08-17] MEDS ORDERED: KCL 10MEQ/100ML SWI (KRUN) 10 MEQ in IV 1 EA IV ONE (14:30)
[2020-08-17 14:31] LABS: INR 4.27
--- NOTE | 2020-08-17 14:31 | REP ---
INDICATION: DYSPNEA/COUGH COMPARISON: 08/29/2018 TECHNIQUE: Portable AP view of the chest FINDINGS: The mediastinum and cardiac silhouette are stable and within normal limits for portable technique. The lung hussein are clear without acute consolidation, effusion, or pneumothorax. Skeletal structures are intact. IMPRESSION: No acute cardiopulmonary process appreciated. <Electronically signed by Marco Campa > 08/17/20 [id number]
[2020-08-17] MEDS ORDERED: ISOVUE-370 76% 100ML VIAL As Ordered ONE (14:39)
[2020-08-17 14:56] LABS: RSV AMPLIFICATION NEGATIVE (NEGATIVE)
[2020-08-17 15:34] LABS: ALBUMIN 3.2 GM/DL (3.2-5.2); ALT/SGPT 20 U/L (12-78); BILIRUBIN,DIRECT 0.4 MG/DL (0.0-0.2); BILIRUBIN,TOTAL 1.1 MG/DL (0.2-1.0); CK-MB VALUE MASS 1.2 NG/ML (<3.6); CPK CREATINE PHOSPHOKINASE 62 U/L (39-308); MB/CK RELATIVE INDEX 1.94 (< OR =4); NT-PRO BNP 4495 PG/ML (<450); THYROID STIMULATING HORMONE 0.287 uIU/ML (0.358-3.740); TOTAL PROTEIN 6.5 GM/DL (6.4-8.2); TROPONIN I < 0.02 NG/ML (< 0.10)
[2020-08-17] MEDS ORDERED: MAG SULF 1GM/100ML (MAG RUN) 1 GM in IV 1 EA IV ONE (15:55)
--- NOTE | 2020-08-17 16:00 | REP ---
INDICATION: ?aspiration. COMPARISON: 08/17/2020 at 2:19 p.m. TECHNIQUE: Portable FINDINGS: The technique utilized in obtaining the radiograph has magnified the cardiac silhouette and attenuated the interstitial markings. There is cardiomegaly accentuated by technique which is unchanged. The lung hussein are unchanged. No acute patchy parenchymal opacities or pleural effusions have developed. There is no change in the osseous structures. IMPRESSION: Stable chest. No change compared to earlier today. <Electronically signed by John Escobedo > 08/17/20 [id number]
--- NOTE | 2020-08-17 16:07 | REP ---
INDICATION: trauma; fall; right flank/RLE hematomas; assess for bleeding COMPARISON: CT chest 11/07/2018. TECHNIQUE: CT Scan of the abdomen and pelvis was performed with intravenous administration of 100 cc of Isovue 370, without oral contrast. Sagittal and coronal reconstruction images are performed. FINDINGS: Lung bases: Unremarkable. There is mild bilateral gynecomastia. Liver: Normal Gallbladder: There are multiple gallstones in the gallbladder without evidence for gallbladder wall edema. Spleen: Normal. Adrenals: There is stable bilateral adrenal gland thickening. Pancreas: Normal. Kidneys: At the site of a posterior right renal cyst there is ill-defined fluid present compatible with a ruptured renal cyst. Small and large bowel: Unremarkable. Free fluid: None. Abdominal aorta: No aneurysm or dissection. There is mild to moderate atherosclerotic calcific plaque of the abdominal aorta and its branches inferiorly through the mid superficial femoral arteries, without focal stenosis. There does appear to be mild to moderate focal stenosis of the distal right superficial femoral artery and superior right popliteal artery. The right tibioperoneal trunk appears occluded, as does the right anterior tibial artery. There appears to be reconstitution of thin proximal peroneal and posterior tibial arteries, the peroneal artery terminates just above the ankle. The left posterior tibial artery traverses into the foot. A thin anterior tibial artery is reconstituted just above the ankle and traverses into the foot. There is mild to moderate focal stenosis of the distal left superficial femoral artery. There is occlusion of the proximal left anterior tibial artery. There is moderate diffuse narrowing of the tibioperoneal trunk. Thin peroneal and posterior tibial arteries are patent, the peroneal artery terminates just above the ankle. Posterior tibial artery traverses into the left foot. A thin anterior tibial artery reconstitutes in the distal 3rd of the calf and traverses into the left foot. Adenopathy: None. Appendix: Not inflamed. Osseous structures: There is a comminuted fracture of the posterior right 11th rib with associated mild surrounding hematoma. There are diffuse degenerative changes of the spine. There is evidence of prior kyphoplasty of the L1 and L3 vertebral bodies. There is slight anterior loss of height of the T12 vertebral body with mild air in the anterior aspect of that vertebral body. Mild acute compression fracture cannot be excluded.. 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 Pelvis: No mass. There is a 2 cm superficial soft tissue hematoma in the right posterior superior pelvic soft tissues, the epicenter on image 121. There is a hematoma in the right gluteus onelia muscle which is somewhat ill-defined. This measures approximately 7.6 x 3.1 cm. No active extravasation is seen. Just inferior to the right patella there is a focal hematoma measuring approximately 6.8 x 3.5 cm. IMPRESSION: Previously noted posterior right renal cyst is ruptured with mild ill-defined fluid posterior to the right kidney. At this level there is a comminuted fracture of the posterior right 11th rib with mild surrounding hematoma. Right gluteal hematoma and right infrapatellar hematoma. No evidence of active extravasation of contrast. Atherosclerotic disease as discussed in detail above. Slight anterior loss of height of the T12 vertebral body with mild air in the anterior aspect of that vertebral body, cannot exclude mild acute compression fracture. <Electronically signed by Andrés Allen > 08/17/20 [id number]
[2020-08-17 16:08] LABS: MAGNESIUM LEVEL 1.7 MG/DL (1.8-2.4)
[2020-08-17] MEDS ORDERED: ONDANSETRON 4MG/2ML VIAL IV ONE (16:35)
[2020-08-17] MEDS ORDERED: NS 1,000 ML IV SCH ×2 (16:45→17:45)
[2020-08-17] MEDS ORDERED: NS 500 ML IV ONE (16:45)
[2020-08-17] MEDS ORDERED: ONDANSETRON 4MG/2ML VIAL IV SCH (17:45)
[2020-08-17] MEDS ORDERED: MORPHINE 2 MG/ML 1ML VIAL (J2270) IV PRN ×2 (17:50)
[2020-08-17] MEDS ORDERED: hydrALAZINE 20MG/ML 1ML VIAL (J0360 PER 20MG) IV PRN (17:50)
[2020-08-17] MEDS ORDERED: FURO20TA2 PO (18:23)
[2020-08-17] MEDS ORDERED: OPTI0.5D5 OU (18:23)
[2020-08-17] MEDS ORDERED: METO5TA PO (18:23)
[2020-08-17] MEDS ORDERED: WARF-23 PO (18:23)
[2020-08-17] MEDS ORDERED: POTA10TA17 PO (18:23)
[2020-08-17] MEDS ORDERED: WARF-21 PO (18:23)
[2020-08-17] MEDS ORDERED: FAMO20TA PO (18:23)
[2020-08-17] MEDS ORDERED: PANT-23 PO (18:23)
[2020-08-17] MEDS ORDERED: ASPI81TA26 PO (18:23)
[2020-08-17] MEDS ORDERED: cefTRIAXone SOD 1 GM in D5W MINI-BAG PLUS 50 ML IV ONE (19:10)
--- NOTE | 2020-08-17 20:57 | ECGEPIP ---
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
[2020-08-17] MEDS: TERAZOSIN 5MG CAPSULE PO SCH (21:00)
[2020-08-17] MEDS: HumaLOG INSULIN (NovoLOG) PER UNIT SC SCH (21:00)
[2020-08-17] MEDS ORDERED: ASPIRIN 81MG ENTERIC TABLET PO SCH (21:00)
--- NOTE | 2020-08-17 21:01 | ECGEPIP ---
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
[2020-08-17] MEDS ORDERED: FUROSEMIDE 100MG/10ML VIAL (J1940) IV ONE (21:50)
[2020-08-17] MEDS: FUROSEMIDE 100MG/10ML VIAL (J1940) IV SCH (22:00)
[2020-08-17 23:10] LABS: BLOOD UREA NITROGEN 71 MG/DL (7-18); CALCIUM LEVEL 9.5 MG/DL (8.8-10.2); CARBON DIOXIDE LEVEL 37 MEQ/L (21-32); CHLORIDE LEVEL 88 MEQ/L (98-107); CREATININE FOR GFR 1.13 MG/DL (0.70-1.30); GLOMERULAR FILTRATION RATE > 60.0 (>35); GLUCOSE, FASTING 180 MG/DL (70-100); POTASSIUM SERUM 2.6 MEQ/L (3.5-5.1); SODIUM LEVEL 137 MEQ/L (136-145)
[2020-08-17] MEDS ORDERED: DEXTROSE 50% 50 ML SYRINGE IV PRN (23:35)
[2020-08-17] MEDS ORDERED: MOM 30ML SUSPENSION UDC PO PRN (23:35)
[2020-08-17] MEDS ORDERED: GLUCOSE 4GM CHEW TABLET PO PRN (23:35)
[2020-08-17] MEDS ORDERED: GLUCAGON INJ 1MG VIAL SC PRN (23:35)
[2020-08-17] MEDS ORDERED: MAALOX 30 ML SUSP *UDC PO PRN (23:35)
--- NOTE | 2020-08-17 23:37 | HPEPDOC ---
[facility] Medical History & Physical Date of Admission Aug 17, 2020 Date of Service: Aug 17, 2020 History and Physical CHIEF COMPLAINT: Weakness from fall HISTORY OF PRESENT ILLNESS: 85-year-old male obese with multiple comorbidities including CHF, A. fib, hypertension, CAD who presents to the hospital due to weakness at home after a fall. His was at bedside and helped obtain a lot of the history. I'm told that he sustained a fall at home approximately 8 days ago according his was refusing to use his walker and was using his cane but he is very unstable when he only uses his cane which resulted in him twisting and falling on his right side while standing in his bedroom onto the floor due to his large body he fell with quite a thud. After the impact he refused to go to the hospital but over the coming days his mobility was worse and his was having difficulty taking care of him he eventually agreed today to come to the hospital. He fell on his right hip chest and knee. His knee is bruised with a black eschar at the tells me has been developing over the past 4 days. He was also noted to have increased bilateral lower extremity swelling that his noticed. The patient denies having chest pain he denies any shortness of breath tells me has pain mostly around his right knee at the area of impact as well as his right chest and hips at the areas of his bruises. In the emergency department attempts were made initially to transfer the patient for evaluation by orthopedic surgery as we do not have orthopedic surgery currently as patient imaging reveals T12 compression fracture as well as rib fracture and developing right knee hematoma. We're able to obtain a consultation from orthopedic surgeon at [place] who said there would be no intervention even if patient would be transferred and recommended patient stays at [facility]. I discussed the case with Dr. Payne who agreed with the plan and will see the patient in the morning. Patient will be admitted to the hospital service due to weakness, evaluation of trauma by surgery, management of fluid overload and electronic imbalances. Of note in the emergency department patient had hypokalemia and was given oral potassium replacement but choked on the pills and had a period of unresponsiveness during which she had to be bagged but regained consciousness shortly afterwards. He has since had some water and hasn't had any trouble swal lowing he tells me the pills were too big. He agreed to try further potassium replacement in liquid form slowly to see if he is able to tolerate it. PAST MEDICAL/SURGICAL HISTORY: Atrial fibrillation on warfarin Hypertension Hyperlipidemia Gys-jlhgtrz-[id number] diabetes Congestive heart failure GERD Gout Coronary artery disease with stenting last in 2017 Bilateral knee replacement Left hip replacement Bilateral cataract removal Right hand carpal tunnel surgery Difficulty hearing and uses hearing aids SOCIAL HISTORY: Drinks only socially a few times a month Quit smoking more than 40 years ago Denies illicit drug use FAMILY HISTORY: Reviewed and none contributory to this admission ALLERGIES: Please see below. REVIEW OF SYSTEMS: 10 point review of systems complete all negative otherwise stated in HPI HOME MEDICATIONS: Please see below. PHYSICAL EXAMINATION: Constitutional: Awake and alert, very hard of hearing, complains of right knee pain ENT: Sclera are clear. Mucosa is moist. Respiratory: Lungs diminished breath sounds bilaterally. No respiratory distress. No use of accessory muscles. Cardiovascular: Irregularly irregular heart rate Gastrointestinal: Abdomen is soft, obese, non distended, non tender, BS present. Musculoskeletal: 3+ lower extremity edema bilaterally symmetrical. Right knee is swollen but not warm with a black eschar overlying approximately 12 cm in d iameter Neurologic: No focal neurological deficit. Able to move all 4 extremities freely Mental Status: A&O x3, normal affect Skin: Extensive Ecchymosis all over the right side of his body onto the hips and buttocks. He was unable to completely rule around onto his side for me to be able to examine his back. LABORATORY DATA: See below. IMAGING: See chart MICROBIOLOGY: Please see below. ASSESSMENT/PLAN 85-year-old male obese with multiple comorbidities including CHF, A. fib, hypertension, CAD who presents to the hospital due to weakness at home after a fall. He was found to have electrolyte imbalances and fluid overload. Patient will be admitted to the hospital service due to weakness, evaluation of trauma including his right knee by surgery, management of fluid overload and electronic imbalances. # Fall at home: 8 days ago. Results in multiple traumas to be evaluated by Surgery in the morning Dr Payne. fracture of the posterior right 11th rib, possible T12 compression fx, right knee hematoma. PT/OT eval. Pain control, Tylenol and tramadol. Morphine IV breakthrough pain. # Right knee hematoma, possible overlying cellulitis: leukocytosis slightly increased. no fever. Start IV vancomycin. Fu BCx. # Fluid overload: Hx of CHF unknown EF I dont see echo in [facility]. Obtain Echo. Diuresis with lasix. Strict ins/out. Restrict fluid intake. # Hypokalemia: replace. monitor. # Hypomagnesemia: replace. monitor. # CAD w stenting: continue ASA, statin # A fib: hold warfarin in setting of suprahepatic INR and knee hematoma. Continue rate control with bb. # Hypertension: Continue home meds. Monitor and titrate # DM: ISS. Frequent Accu-Cheks. Hypoglycemic precautions. # HLD: continue statin # Obesity : BMI 46, complicates care. # Gout: continue home allopurinol # DVT prophylaxis: SCDs/TEDs only due to hematoma and supratheraputic INR A [facility] Hospitalist Vital Signs Vital Signs Date Time Temp Pulse Resp B/P (MAP) Pulse Ox O2 Delivery O2 Flow Rate FiO2 08/17/20 23:25 83 14 191/91 (124) 96 Nasal Cannula 4.0 08/17/20 12:36 98.6 Laboratory Data Labs 24H Laboratory Tests 2 08/17/20 13:08: Immature Granulocyte % (Auto) 2.5, Neutrophils (%) (Auto) 72.9H, Lymphocytes (%) (Auto) 11.3L, Monocytes (%) (Auto) 12.3H, Eosinophils (%) (Auto) 0.4, Basophils (%) (Auto) 0.6, Neutrophils # (Auto) 7.9, Lymphocytes # (Auto) 1.2L, Monocytes # (Auto) 1.3H, Eosinophils # (Auto) 0.0, Basophils # (Auto) 0.1, Nucleated Red Blood Cells % (auto) 0.2H 08/17/20 14:04: Prothrombin Time 42.0H, Prothromb Time International Ratio 4.27, Activated Partial Thromboplast Time 58.0H, Magnesium Level 1.7L, Total Bilirubin 1.1H, Direct Bilirubin 0.4H, Aspartate Amino Transf (AST/SGOT) 19, Alanine Aminotransferase (ALT/SGPT) 20, Alkaline Phosphatase 65, Total Creatine Kinase 62, Creatine Kinase MB 1.2, Creatine Kinase MB Relative Index 1.94, Troponin I < 0.02, ZX-Hhs-D-Type Natriuretic Peptide 4495H, Total Protein 6.5, Albumin 3.2, Albumin/Globulin Ratio 1.0, Thyroid Stimulating Hormone (TSH) 0.287L, Coronavirus (COVID-19)(PCR) NEGATIVE, Influenza Type A (RT-PCR) NEGATIVE, Influenza Type B (RT-PCR) NEGATIVE, Respiratory Syncytial Virus (PCR) NEGATIVE 08/17/20 14:12: POC Glucose (Misc Panel) 135H, POC Sodium (Misc Panel) 133L, POC Potassium (Misc Panel) 2.4*L, POC Chloride (Misc Panel) 79L, POC Total CO2 (Misc Panel) 42.0H, POC Blood Urea Nitrogen (Misc Panel 77H, POC Ionized Calcium (Misc Panel) 4.5, POC Creatinine (Misc Panel) 1.5H, POC Hematocrit (Misc Panel) 35.0L 08/17/20 15:59: POC Total CO2 (Misc Panel) 48.0H, POC pH (Misc Panel) 7.493H, POC Base Excess (Misc Panel) 23.0H, POC Saturated Percent O2 (Misc) 75L, POC pO2 (Misc Panel) 38.0*L, POC pCO2 (Misc Panel) 60.3*H, POC HCO3 (Misc Panel) 46.3H 08/17/20 22:02: Anion Gap 12, Glomerular Filtration Rate > 60.0, Calcium Level 9.5 CBC/BMP Laboratory Tests 08/17/20 13:08 08/17/20 22:02 Home Medications Scheduled Allopurinol (Zyloprim) 300 Mg Tab, 300 MG PO QPM Aspirin (Aspirin EC) 81 Mg Tablet.dr, 81 MG PO QPM Atenolol (Atenolol) 50 Mg Tablet, 50 MG PO DAILY Bisacodyl (Dulcolax) 5 Mg Tab, 10 MG PO QHS Diphenhydramine HCl (Diphenhydramine HCl) 50 Mg Cap, 50 MG PO QHS Docusate Sodium (Stool Softener) 100 Mg Cap, 100 MG PO BID Famotidine (Famotidine) 20 Mg Tablet, 20 MG PO DAILY Furosemide (Furosemide) 20 Mg Tablet, 60 MG PO BID TAKES AT 0400/1600 Loratadine (Claritin) 10 Mg Capsule, 10 MG PO DAILY Metformin HCl (Metformin HCl) 500 Mg Tab, 500 MG PO BID Metolazone (Metolazone) 5 Mg Tablet, 5 MG PO QPM Multivitamins (Thera M Plus Tablet) 1 Tab Tab, 1 TAB PO DAILY Pantoprazole Sodium (Pantoprazole Sodium) 40 Mg Tablet.dr, 40 MG PO DAILY Potassium Chloride (Potassium Chloride) 10 Meq Tab.er.prt, 10 MEQ PO DAILY Simvastatin (Zocor) 80 Mg Tablet, 80 MG PO DAILY Terazosin HCl (Terazosin HCl) 5 Mg Cap, 5 MG PO QHS Warfarin Sodium (Warfarin Sodium) 7.5 Mg Tablet, 7.5 MG PO 2XW SUNDAYS/THURSDAYS AT 2200 Warfarin Sodium (Warfarin Sodium) 5 Mg Tablet, 5 MG PO 5XW SAT//SAT/SAT/SAT AT 2200 Scheduled PRN Acetaminophen (Acetaminophen) 500 Mg Tab, 1,000 MG PO Q4H PRN for PAIN Carboxymethylcellulos/Glycerin (Refresh Optive Eye Drops) 15 Ml Drops, 1 DROP OU QID PRN for DRY EYES Nitroglycerin (Nitroglycerin) 0.4 Mg Sub, 0.4 MG SL NITRO PRN for CHEST PAIN Tramadol HCl (Tramadol HCl) 50 Mg Tab, 50 MG PO QID PRN for PAIN Allergies Coded Allergies: No Known Allergies (Unverified , 08/17/20) A-FIB/CHADSVASC A-FIB History Current/History of A-Fib/PAF?: Yes Current PO Anticoag Therapy: No DYANA WONG MD Aug 17, 2020 23:37
[2020-08-18] MEDS ORDERED: KCL 10MEQ/100ML SWI (KRUN) 10 MEQ in IV 1 EA IV ONE (00:30)
[2020-08-18] MEDS ORDERED: MAG SULF 1GM/100ML (MAG RUN) 1 GM in IV 1 EA IV ONE (00:45)
[2020-08-18] MEDS ORDERED: POTASSIUM CHLORIDE 10% LIQ 20 MEQ/15 ML UDC PO ONE (00:45)
[2020-08-18] MEDS: traMADol 50 MG TAB PO PRN ×4 (01:43→23:01)
[2020-08-18] MEDS: DOCUSATE SODIUM 100MG CAPSULE PO SCH ×3 (01:43→20:27)
[2020-08-18] MEDS: allopurinoL 300 MG TAB PO SCH ×2 (01:44→20:26)
[2020-08-18] MEDS: diphenhydrAMINE 50MG CAP PO SCH ×2 (01:44→20:27)
[2020-08-18] MEDS: metOLazone 5 MG TAB PO SCH ×2 (01:47→20:26)
[2020-08-18] MEDS: BISACODYL 5 MG TAB PO SCH ×2 (01:48→20:26)
[2020-08-18 02:00] VITALS: BP 130/50
[2020-08-18] MEDS: KCL 10MEQ/100ML SWI (KRUN) 10 MEQ in IV 1 EA IV SCH ×2 (02:00→03:45)
[2020-08-18] MEDS ORDERED: VANCOMYCIN HCL 1,000 MG, VIAL MATE ADAPTER 1 EACH in NS 250 ML IV ONE ×2 (02:00→03:00)
[2020-08-18 04:00] VITALS: BP 150/70
[2020-08-18 05:21] LABS: HEMATOCRIT 30.9 % (42.0-52.0); HEMOGLOBIN 10.3 g/dl (13.5-17.5); MEAN CORPUSCULAR HEMOGLOBIN 35.9 pg (27.0-33.0); MEAN CORPUSCULAR HGB CONC 33.3 g/dl (32.0-36.5); MEAN CORPUSCULAR VOLUME 107.7 fl (80.0-96.0); PLATELET COUNT, AUTOMATED 205 10^3/uL (150-450); RED BLOOD COUNT 2.87 10^6/uL (4.30-6.10); WHITE BLOOD COUNT 17.8 10^3/uL (4.0-10.0)
[2020-08-18 05:40] LABS: ALBUMIN 2.7 GM/DL (3.2-5.2); ALT/SGPT 18 U/L (12-78); BILIRUBIN,TOTAL 0.9 MG/DL (0.2-1.0); BLOOD UREA NITROGEN 59 MG/DL (7-18); CALCIUM LEVEL 8.7 MG/DL (8.8-10.2); CARBON DIOXIDE LEVEL 39 MEQ/L (21-32); CHLORIDE LEVEL 93 MEQ/L (98-107); CREATININE FOR GFR 1.04 MG/DL (0.70-1.30); GLOMERULAR FILTRATION RATE > 60.0 (>35); GLUCOSE, FASTING 208 MG/DL (70-100); MAGNESIUM LEVEL 2.3 MG/DL (1.8-2.4); POTASSIUM SERUM 3.1 MEQ/L (3.5-5.1); SODIUM LEVEL 136 MEQ/L (136-145); TOTAL PROTEIN 6.4 GM/DL (6.4-8.2)
[2020-08-18] MEDS: FUROSEMIDE 100MG/10ML VIAL (J1940) IV SCH ×3 (06:35→23:03)
[2020-08-18] MEDS ORDERED: KCL 10MEQ/100ML SWI (KRUN) 10 MEQ in IV 1 EA IV SCH (08:00)
[2020-08-18 08:12] VITALS: BP 133/63
[2020-08-18 08:35] LABS: INR 4.34; PROTHROMBIN TIME 42.6 SECONDS (12.5-14.3)
[2020-08-18 08:36] LABS: PARTIAL THROMBOPLASTIN TIME 70.1 SECONDS (24.2-38.5)
[2020-08-18] MEDS: PANTOPRAZOLE 40MG TAB (PROTONIX) PO SCH (08:52)
[2020-08-18] MEDS: atenoloL 50 MG TAB PO SCH (08:52)
[2020-08-18] MEDS: HumaLOG INSULIN (NovoLOG) PER UNIT SC SCH ×4 (08:52→20:27)
[2020-08-18] MEDS: SIMVASTATIN 40 MG TAB PO SCH (08:53)
[2020-08-18] MEDS: POTASSIUM CHLORIDE 10 MEQ SR TABLET PO SCH ×2 (09:17→14:00)
--- NOTE | 2020-08-18 11:13 | CR ---
CONSULTATION DATE: 08/18/2020 HISTORY OF PRESENT ILLNESS: The patient is an 85-year-old male who presents to the hospital with weakness after having multiple falls at home. He has had multiple falls starting approximately eight days ago. He comes in with bruising along the right knee, the right flank and the right posterior back. One of his falls was very hard, he landed right on the right knee, he developed a large hematoma. The has been taking care of it at home, however with the persistent weakness she finally brought him in after four days for evaluation. In the ER, he does have multiple fractures of both ribcage, thoracic spine, as well as multiple hematomas of the knee, the right back, there was a concern because we had no orthopedic coverage. However, on attempt to transfer him, most of the hospitals in the surrounding area are also not accepting any patients. The Emergency Room did discuss his T12 compression fracture with orthopedics at [facility] who said this was nonoperative and that there was no need for them to transfer him. Therefore, he was admitted overnight to the Medical Service. I was asked to see the patient because of the falls and because of the possible infection, cellulitis, hematoma over the right knee. There was nothing acute last evening, no fevers, no chills, no hypotension, no signs of sepsis, so he was able to be waited on until this morning. This morning, the patient feels well. His only complaint is pain in the right lower back. He has no pains in the right knee. He is diuresing slowly. He says that his legs swelling is slowly starting to improve. He denies any pain of the right knee. PAST MEDICAL HISTORY: 1. Atrial fibrillation. 2. Hypertension. 3. Hyperlipidemia. 4. Diabetes. 5. CHF. 6. GERD. 7. Gout. 8. Coronary artery disease. 9. Cataracts. PAST SURGICAL HISTORY: 1. Bilateral knee replacement. 2. Left hip replacement. 3. Bilateral cataract removal. 4. Carpal tunnel surgery. SOCIAL HISTORY: Denies drug, alcohol or tobacco abuse. FAMILY HISTORY: Noncontributory. ALLERGIES: None. HOME MEDICATIONS: Please see medical record. Meds include coumadin which he is supratherapeutic on currently. REVIEW OF SYSTEMS: Pertinent positives and negatives as stated in the HPI. PHYSICAL EXAMINATION: General: Patient is A and O x3, in no acute distress. Vitals: Temperature 98, pulse 62, respiratory rate 16, blood pressure 150/70, pulse oximetry 96% on 2 liter nasal cannula. HEENT: Pupils equally round and reactive to light and accommodation. Heart: S1 and S2, irregularly irregular rate and rhythm. Lungs are clear to auscultation bilaterally. Abdomen is soft, obese, nontender and nondistended. Extremities: Bilateral lower extremity pitting edema. The right lower extremity has extensive hematoma in the infrapatellar region anteriorly. There is significant bruising there as well as a large eschar, approximately 5 x 6 cm in size in the infrapatellar area overlying this large bruise. There is surrounding inflammation, some warmth to the skin. No signs of any fluid collections currently. No active fluid drainage. Skin: The right flank, right back and the buttock area is all extensively bruised as well. LABS: White count 17.8, up from 10.8, hemoglobin 10.3, down from 11.5, platelets 205,000. Potassium is 3.1, creatinine is 1.04. Lactic acid 1.3. INR 4.34. IMAGING: Chest x-ray shows no acute cardiopulmonary process. CTA shows right renal cyst ruptured with mild ill-defined fluid posterior to the right kidney. There is a comminuted fracture of the posterior right 11th rib with mild surrounding hematoma, right gluteal hematoma and right infrapatellar hematoma. No evidence of active extravasation of contrast. Slight anterior loss of height of the T12 vertebral body with mild air in the anterior aspect of the vertebral body, cannot exclude mild acute compression fracture. ASSESSMENT AND PLAN: The patient is an 85-year-old male with multiple medical issues including CHF, atrial fibrillation, currently presents status post multiple falls. He has rib fracture of the 11th rib. He has a thoracic spine compression fracture as well as multiple hematomas including the right infrapatellar area. This hematoma on the right patellar area has also caused some superficial skin necrosis resulting in a large eschar over top of the area with concerns for possible superficial cellulitis at this time. The area is warm and red. Recommendation is to avoid incision and drainage currently due to him being supratherapeutic with an INR still over 4. I will recommend warm compresses to the area for now as well as IV antibiotics. His coumadin is being held with attempts to get his INR back to a therapeutic range once he is therapeutic. If he still shows signs of inflammation and infection of the area, we can consider debridement of the eschar with drainage of the hematoma if needed. Thank you for the consult. Will continue to monitor him closely along with you. As far as the rib fracture is concerned, there is no surgery necessary for that as well, just recommend incentive spirometer and good chest PT.
[2020-08-18] MEDS: VANCOMYCIN HCL 1,000 MG, VIAL MATE ADAPTER 1 EACH in NS 250 ML IV SCH ×2 (11:30→17:38)
[2020-08-18 12:10] VITALS: BP 138/63
--- NOTE | 2020-08-18 14:45 | IPNPDOC ---
Date Seen The patient was seen on 08/18/20. Progress Note SUBJECTIVE: Good u/o overnight, no increased s/s of bleeding. H/H stable. Transfer for orthopedic reason cancelled. INR still supratherapeutic. With no increased s/s of bleeding, will continue to watch only. If increases further may reverse. Denies increased SOB, fevers, chills, chest pain and is tolerating diet well without concern for aspiration. OBJECTIVE: PHYSICAL EXAMINATION: Constitutional: Awake and alert, very hard of hearing, complains of right knee pain ENT: Sclera are clear. Mucosa is moist. Respiratory: Lungs diminished breath sounds bilaterally, mild crackles in b/l posterior lungs . No respiratory distress. No use of accessory muscles. Cardiovascular: Irregularly irregular heart rate, S1s2 +, no M/R/G, +1 pitting edema in lower ext Gastrointestinal: Abdomen is soft, obese, non distended, non tender, BS present. Musculoskeletal: 3+ lower extremity edema bilaterally symmetrical. Right knee is swollen, mildly warm to touch on outter part of eschar of right knee. Neurologic: No focal neurological deficit. Able to move all 4 extremities freely Mental Status: A&O x3, normal affect Skin: Extensive Ecchymosis all over the right side of his body onto the hips and buttocks. black eschar overlying approximately 12 cm in diameter of right knee. LABORATORY DATA: See below. IMAGING: See chart MICROBIOLOGY: Bcx x 2 sets pending ASSESSMENT/PLAN 85-year-old male obese with multiple comorbidities including CHF, A. fib, hypertension, CAD who presents to the hospital due to weakness at home after a fall. He was found to have electrolyte imbalances and fluid overload. Patient will be admitted to the hospital service due to weakness, evaluation of trauma including his right knee by surgery, management of fluid overload and electronic imbalances. Fracture of the posterior right 11th rib, possible T12 compression fx, right knee hematoma s/p fall -Stable and not requiring surgery per general surgery and orthopedic surgery who was telemedicine consulted in ER -INR remains supratherapeutic, per surgery would not reverse at this time: H/H stable no increased growth of ecchymosis. -For now, c/w pain control. If INR worsens or outlined area of ecchymosis increased, consider reversal -Would recommend placing official orthopedic consult with our service on 08/19/20 (have not had available in our facility) -When orthopedic surgery evaluates, please get restrictions/movement orders if able -Surgery is consulted to evaluate due to recent trauma, F/u recommendations Right knee hematoma, possibly infectious hematoma with associated cellulitis -WBC increased to 17.8, afebrile -C/w broad spectrum abx -F/u BCx -If leukocytosis worsens, discussed with Dr. Payne likely needing to be aspirated/cleaned out for culturing. CHF (type unknown) with exacerbation -BNP >4K, s/s of fluid overload including increased lower ext edema -F/u echocardiogram ordered here -Requested Dr. Leslie (chef teacher in [facility])'s not recent office note and echocardiogram -C/w diuresis, other home meds Supratherapeutic INR on coumadin at home -Discussed with surgery. At this time ecchymosis stable, no increased areas of concern, H/H stable -Trying not to reverse at this time -If areas ecchymosis increase or H/H drops or other s/s of bleeding, reverse -Daily INR Acute hypokalemia -K 3.1 -replaced with 60 mEq PO K today -F/u AM lytes Syncopal episode 08/17/20 on admission likely 2/2 to aspiration on pills PO -isolated incident -CXR clear -No concerns for dysphagia currently on regular diet -AAO x 3 Hypomagnesemia -Replaced in ER -Mag wnl this AM CAD w stenting -No chest pain, SOB -F/u cardiology records -Stop ASA with hematomas. C/w statin, BB A fib -Rate controlle -Hold coumadin with supratherapeutic INR and likely need to debride/poss aspirate right knee -c/w BB Hypertension -Controlled -C/w home meds DM BS stable - ISS. Frequent Accu-Cheks. Hypoglycemic precautions. HLD: continue statin Obesity -BMI 46, complicates care Gout -C/w allopurinol DVT prophylaxis -SCDs/TEDs only due to hematoma and supratheraputic INR DISPOSITION: Dr. Payne (general surgery) following, would recommend placing orthopedic consult on 08/19/20 without ortho service to see. VS, I&O, 24H, Fishbone Vital Signs/I&O Vital Signs Date Time Temp Pulse Resp B/P (MAP) Pulse Ox O2 Delivery O2 Flow Rate FiO2 08/18/20 12:10 96.9 77 20 138/63 (88) 86 Room Air 08/18/20 08:12 2.0 I&O- Last 24 Hours up to 6 AM 08/18/20 06:00 Intake Total 2190 ml Output Total 1200 ml Balance 990 ml Laboratory Data 24H LABS Laboratory Tests 2 08/17/20 14:04: Prothrombin Time 42.0H, Prothromb Time International Ratio 4.27, Activated Partial Thromboplast Time 58.0H, Magnesium Level 1.7L, Total Bilirubin 1.1H, Direct Bilirubin 0.4H, Aspartate Amino Transf (AST/SGOT) 19, Alanine Aminotransferase (ALT/SGPT) 20, Alkaline Phosphatase 65, Total Creatine Kinase 62, Creatine Kinase MB 1.2, Creatine Kinase MB Relative Index 1.94, Troponin I < 0.02, CF-Cpg-L-Type Natriuretic Peptide 4495H, Total Protein 6.5, Albumin 3.2, Albumin/Globulin Ratio 1.0, Thyroid Stimulating Hormone (TSH) 0.287L, Coronavirus (COVID-19)(PCR) NEGATIVE, Influenza Type A (RT-PCR) NEGATIVE, Influenza Type B (RT-PCR) NEGATIVE, Respiratory Syncytial Virus (PCR) NEGATIVE 08/17/20 14:12: POC Glucose (Misc Panel) 135H, POC Sodium (Misc Panel) 133L, POC Potassium (Misc Panel) 2.4*L, POC Chloride (Misc Panel) 79L, POC Total CO2 (Misc Panel) 42.0H, POC Blood Urea Nitrogen (Misc Panel 77H, POC Ionized Calcium (Misc Panel) 4.5, POC Creatinine (Misc Panel) 1.5H, POC Hematocrit (Misc Panel) 35.0L 08/17/20 15:59: POC Total CO2 (Misc Panel) 48.0H, POC pH (Misc Panel) 7.493H, POC Base Excess (Misc Panel) 23.0H, POC Saturated Percent O2 (Misc) 75L, POC pO2 (Misc Panel) 38.0*L, POC pCO2 (Misc Panel) 60.3*H, POC HCO3 (Misc Panel) 46.3H 08/17/20 22:02: Anion Gap 12, Glomerular Filtration Rate > 60.0, Calcium Level 9.5 08/17/20 23:58: Procalcitonin 0.10 08/18/20 01:11: Bedside Glucose (Misc Panel) 167H 08/18/20 04:52: Nucleated Red Blood Cells % (auto) 0.0, Anion Gap 4L, Glomerular Filtration Rate > 60.0, Lactic Acid Level 1.3, Calcium Level 8.7L, Magnesium Level 2.3, Total Bilirubin 0.9, Aspartate Amino Transf (AST/SGOT) 18, Alanine Aminotransferase (ALT/SGPT) 18, Alkaline Phosphatase 57, Total Protein 6.4, Albumin 2.7L, Albumin/Globulin Ratio 0.7 08/18/20 07:59: Prothrombin Time 42.6H, Prothromb Time International Ratio 4.34, Activated Partial Thromboplast Time 70.1H 08/18/20 08:13: Bedside Glucose (Misc Panel) 203H 08/18/20 12:04: Bedside Glucose (Misc Panel) 150H CBC/BMP Laboratory Tests 08/17/20 22:02 08/18/20 04:52 Microbiology Microbiology 08/18/20 Blood Culture, Received Pending 08/18/20 Blood Culture, Received Pending Judie Gallego MD Aug 18, 2020 14:45
[2020-08-18 16:00] VITALS: BP 135/63
[2020-08-18 20:00] VITALS: BP 150/73
[2020-08-18] MEDS: TERAZOSIN 5MG CAPSULE PO SCH (20:27)
[2020-08-19] VITALS: BP 144/74
[2020-08-19 04:00] VITALS: BP 155/70
[2020-08-19 05:25] LABS: HEMATOCRIT 29.1 % (42.0-52.0); HEMOGLOBIN 9.4 g/dl (13.5-17.5); MEAN CORPUSCULAR HEMOGLOBIN 35.5 pg (27.0-33.0); MEAN CORPUSCULAR HGB CONC 32.3 g/dl (32.0-36.5); MEAN CORPUSCULAR VOLUME 109.8 fl (80.0-96.0); PLATELET COUNT, AUTOMATED 200 10^3/uL (150-450); RED BLOOD COUNT 2.65 10^6/uL (4.30-6.10); WHITE BLOOD COUNT 11.4 10^3/uL (4.0-10.0)
[2020-08-19 05:39] LABS: INR 3.64; PROTHROMBIN TIME 37.1 SECONDS (12.5-14.3)
[2020-08-19] MEDS: FUROSEMIDE 100MG/10ML VIAL (J1940) IV SCH ×3 (05:39→22:15)
[2020-08-19 05:40] LABS: PARTIAL THROMBOPLASTIN TIME 69.4 SECONDS (24.2-38.5)
[2020-08-19] MEDS: traMADol 50 MG TAB PO PRN ×3 (05:40→20:38)
[2020-08-19 05:54] LABS: ALBUMIN 2.7 GM/DL (3.2-5.2); ALT/SGPT 19 U/L (12-78); BLOOD UREA NITROGEN 56 MG/DL (7-18); CALCIUM LEVEL 8.5 MG/DL (8.8-10.2); CARBON DIOXIDE LEVEL 42 MEQ/L (21-32); CHLORIDE LEVEL 90 MEQ/L (98-107); CREATININE FOR GFR 1.21 MG/DL (0.70-1.30); GLOMERULAR FILTRATION RATE > 60.0 (>35); GLUCOSE, FASTING 167 MG/DL (70-100); POTASSIUM SERUM 2.9 MEQ/L (3.5-5.1); SODIUM LEVEL 136 MEQ/L (136-145); TOTAL PROTEIN 5.6 GM/DL (6.4-8.2)
--- NOTE | 2020-08-19 06:19 | IPNPDOC ---
Text Note Date of Service The patient was seen on 08/19/20. NOTE Patients Potassium level has been low all night with first lab reading at 3.1 an d replaced electrolyte with 1 run of Potassium Chloride 10 mEq. In re-assessing his hypokalemia his 0600 lab results shows his Potassium decreased to 2.9, notified attending, ordered 3 additional runs of 10 mEQ of Potassium Chloride, plus a now dose of Potassium Chloride po 40 mEQ then he will start receiving supplemental Potassium Chloride 40 mEQ bid. Will continue to monitor patient. VS,[place], I+O VS, Fishbone, I+O Laboratory Tests 08/19/20 05:04 Vital Signs Date Time Temp Pulse Resp B/P (MAP) Pulse Ox O2 Delivery O2 Flow Rate FiO2 08/19/20 06:10 16 08/19/20 04:00 2.0 08/19/20 04:00 97.6 72 155/70 (98) 95 Nasal Cannula I&O- Last 24 Hours up to 6 AM 08/19/20 06:00 Intake Total 1370 ml Output Total 3400 ml Balance -2030 ml DUANE MEDRANO [employer]IST Aug 19, 2020 06:19
[2020-08-19 06:28] LABS: MAGNESIUM LEVEL 2.1 MG/DL (1.8-2.4)
[2020-08-19] MEDS: VANCOMYCIN HCL 750 MG, VIAL MATE ADAPTER 1 EACH in NS 250 ML IV SCH ×2 (06:43→18:25)
[2020-08-19] MEDS ORDERED: POTASSIUM CHLORIDE 10 MEQ SR TABLET PO ONE ×2 (07:00→16:15)
[2020-08-19] MEDS ORDERED: KCL 10MEQ/100ML SWI (KRUN) 10 MEQ in IV 1 EA IV ONE (07:00)
--- NOTE | 2020-08-19 07:19 | IPNPDOC ---
Text Note Date of Service The patient was seen on 08/19/20. NOTE No acute events overnight. He is still having pain in the right knee. No other complaints this am. VSSAF NAD skin - rt knee swelling and erythema have improved. The hematoma has a dry eschar on top of it without any drainage, no signs of fluctuance labs - below A) 85y/o male s/p multiple falls with rt knee infected hematoma with some cellulitis thoracic compression fracture rib fx P) reg diet continue to let INR normalize I will place him on the OR schedule for Saturday morning for debridement of the right knee hematoma Erickson Payne DO VS,Fishbone, I+O VS, Fishbone, I+O Laboratory Tests 08/19/20 05:04 Vital Signs Date Time Temp Pulse Resp B/P (MAP) Pulse Ox O2 Delivery O2 Flow Rate FiO2 08/19/20 06:10 16 08/19/20 04:00 2.0 08/19/20 04:00 97.6 72 155/70 (98) 95 Nasal Cannula I&O- Last 24 Hours up to 6 AM 08/19/20 06:00 Intake Total 1870 ml Output Total 3800 ml Balance -1930 ml KYLE PAYNE DO Aug 19, 2020 07:19
[2020-08-19 07:42] VITALS: BP 137/56
[2020-08-19] MEDS ORDERED: VANCOMYCIN HCL 500 MG in D5W MINI-BAG PLUS 100 ML IV SCH (08:00)
[2020-08-19] MEDS: SIMVASTATIN 40 MG TAB PO SCH (08:32)
[2020-08-19] MEDS: PANTOPRAZOLE 40MG TAB (PROTONIX) PO SCH (08:32)
[2020-08-19] MEDS: DOCUSATE SODIUM 100MG CAPSULE PO SCH ×2 (08:32→20:39)
[2020-08-19] MEDS: atenoloL 50 MG TAB PO SCH (08:32)
[2020-08-19] MEDS: HumaLOG INSULIN (NovoLOG) PER UNIT SC SCH ×4 (08:34→20:40)
--- NOTE | 2020-08-19 09:19 | ECHO ---
ECHOCARDIOGRAM DATE OF PROCEDURE: 08/18/2020 Age: 85 Gender: Male Height: 74 inches Weight: 357 pounds Body surface area: 3.78 m2 PATIENT LOCATION: Inpatient, PCU Room 3224. REFERRING PHYSICIAN: Misael Khalil MD. INDICATION: Edema. MEASUREMENTS: 2D Measurements: RV 4.8 cm LV 5.3 cm Septum 1.2 cm Posterior wall 1.2 cm Aortic Root 4.0 cm LA 4.8 cm LVEF 75% Doppler Measurements: AV 1.85 m/s LVOT 0.86 m/s LVOT diameter 2.2 cm MV-E 90 Early mitral deceleration time 266 msec E prime medial 9.6, E prime lateral 14.5 Average E/E prime ratio 7.5/PCWP 11.2 mmHg PV 0.7 m/s Pulmonary artery acceleration time 110 msec RVSP 50 mmHg IVC 2.4 cm COMMENTS: Underlying atrial fibrillation with controlled ventricular response. Technically challenging study in light of the patient's body habitus, but diagnostically useful information was still obtained. M-mode and two-dimensional echocardiography was performed with pulse, continuous wave, color flow, and tissue Doppler studies. Borderline symmetrical left ventricular hypertrophy with hyperkinetic wall motion. Moderately dilated left atrium with currently normal estimated mean left atrial pressure. Moderately dilated right heart chambers with right ventricular free wall hypokinesis and Doppler evidence of at least moderate pulmonary hypertension. Dilated inferior vena cava with perhaps some respiratory collapse in keeping with a significantly elevated central venous pressure. Slightly dilated aortic root, but normal ascending aortic diameter. Mild thickening of the edges of three equal size aortic cusps with normal cusp separation and only trace insufficiency. Mild mitral annular calcification with normal leaflet thickness and excursion and no posterior systolic buckling. No more than trace insufficiency. Normal appearing tricuspid valve with mild insufficiency. No apparent intracardiac mass or pericardial effusion. MTDD
[2020-08-19 11:34] VITALS: BP 122/92
--- NOTE | 2020-08-19 13:38 | IPNPDOC ---
Text Note Date of Service The patient was seen on 08/19/20. NOTE Subjective: Patient is an 85-year-old male with PMHx of HTN, CHF, CAD, A. fib (on Coumadin), who presented to the emergency room after experiencing weakness and a follow-up home. Patient was clinically found to be in fluid overload with multiple electrolyte abnormalities. Patient was admitted to the hospitalist service and general surgery/trauma services consulted for further evaluation. Patient was seen and examined at the bedside. Currently patient reports that his breathing is doing relatively fine. He denies any nausea, vomiting, chest pain, shortness breath, palpitations, has not spent any abdominal pain. Reports that he is experiencing some right-sided flank pain, right knee pain. Denies any constipation, has a Agee catheter in place. Objective: Vitals (See below) General: Lying in bed, appears comfortable, AAOx3 HEENT: NC, AT CVS: +S1S2 Lungs: Fair air entry b/l, mild crackles bilaterally, no wheezing / rhonchi Abdomen: Soft, ND, NT Back: Extensive area of ecchymosis extending from right flank into right gluteal/thigh area Extremities: LE with 1+ pitting edema bilaterally, right knee with hematoma no shakeel above with dark/black eschar Imaging: CXR 08/17: No acute cardiopulmonary process appreciated. CTA abdominal arteries 08/17: Previously noted posterior right renal cyst is ruptured with mild ill-defined fluid posterior to the right kidney. At this level there is a comminuted fracture of the posterior right 11th rib with mild surrounding hematoma. Right gluteal hematoma and right infrapatellar hematoma. No evidence of active extravasation of contrast. Atherosclerotic disease as discussed in detail above. Slight anterior loss of height of the T12 vertebral body with mild air in the anterior aspect of that vertebral body, cannot exclude mild acute compression fracture. CXR 08/17: Stable chest. No change compared to earlier today. Assessment and plan: Fracture of the posterior right 11th rib, possible T12 compression fx, right knee hematoma s/p fall - Will continue with pain control - Coagulation on hold - PT / OT / Weight bearing will be discussed with by Trauma service - Will add incentive spirometry / acapella - c/w Tramadol for pain control Right knee hematoma; less likely component of infection / cellulitis - Patient is reporting right knee pain - Area appears above knee with a dark eschar above - Remainder of joint does not appear to show significant infection - c/w Vancomycin (Day #2) - Patient will be taken to the or on Saturday for debridement of hematoma with Dr. Payne CHF (type unknown) with exacerbation - Patient is currently on 2 L nasal cannula oxygen - Physical reveals evidence of fluid overload - Elevated BNP - ECHO /: Moderate pulmonary hypertension, dilated IVC, elevated CVP - c/w Furosemide and Metolazone Supratherapeutic INR - likely 2/2 Coumadin - Patient has ecchymosis of his back and a hematoma of his right knee with an eschar - Hemodynamically stable - Hemoglobin remained stable - No evidence of active bleeding - Will continue to follow INR Hypokalemia - c/w Telemetry monitoring - c/w Supplementation and standing supplementation - Will follow up repeat BMP at 2PM Syncopal episode 08/17/20 on admission likely 2/2 to aspiration on pills PO - Appears to have been an isolated incident - No leukocytosis or fevers - Imaging noted above - Blood cultures 08/17: Negative at 24 hours s/p Hypomagnesemia CAD w/ stenting -Patient denies any chest pain, shortness breath, palpitations - c/w Simvastatin and Atenolol - ASA and Coumadin on hold A fib - Currently is rate controlled - c/w rate control with Atenolol - Will hold full anticoagulation with Coumadin (re: Supratherapeutic INR) HTN - BP well controlled - c/w Atenolol, Furosemide, Metolazone NIDDM2 - c/w ISS DLP - c/w Simvastatin Obesity - Complicating medical care Gout - c/w Allopurinol BPH - c/w Terazosin GI prophylaxis - c/w Protonix DVT prophylaxis - c/w TEDs/Sequentials VS,Fishbone, I+O VS, Fishbone, I+O Laboratory Tests 08/19/20 05:04 Vital Signs Date Time Temp Pulse Resp B/P (MAP) Pulse Ox O2 Delivery O2 Flow Rate FiO2 08/19/20 11:34 59 16 122/92 (102) 97 Nasal Cannula 2.0 08/19/20 08:34 97.9 I&O- Last 24 Hours up to 6 AM 08/19/20 06:00 Intake Total 1870 ml Output Total 3800 ml Balance -1930 ml FRAUSTO,VIJESH MD Aug 19, 2020 13:38
[2020-08-19 14:43] LABS: BLOOD UREA NITROGEN 51 MG/DL (7-18); CALCIUM LEVEL 8.6 MG/DL (8.8-10.2); CARBON DIOXIDE LEVEL 42 MEQ/L (21-32); CHLORIDE LEVEL 88 MEQ/L (98-107); CREATININE FOR GFR 1.21 MG/DL (0.70-1.30); GLOMERULAR FILTRATION RATE > 60.0 (>35); GLUCOSE, FASTING 184 MG/DL (70-100); POTASSIUM SERUM 3.1 MEQ/L (3.5-5.1); SODIUM LEVEL 134 MEQ/L (136-145)
[2020-08-19 17:26] VITALS: BP 121/60
[2020-08-19 20:00] VITALS: BP 122/56
[2020-08-19] MEDS: TERAZOSIN 5MG CAPSULE PO SCH (20:38)
[2020-08-19] MEDS: metOLazone 5 MG TAB PO SCH (20:39)
[2020-08-19] MEDS: allopurinoL 300 MG TAB PO SCH (20:39)
[2020-08-19] MEDS: POTASSIUM CHLORIDE 10 MEQ SR TABLET PO SCH (20:39)
[2020-08-19] MEDS: diphenhydrAMINE 50MG CAP PO SCH (20:39)
[2020-08-19] MEDS: BISACODYL 5 MG TAB PO SCH (20:39)
[2020-08-20] VITALS: BP 134/65
[2020-08-20 04:00] VITALS: BP 132/57
[2020-08-20 06:10] LABS: HEMOGLOBIN 9.4 g/dl (13.5-17.5); MEAN CORPUSCULAR HEMOGLOBIN 35.6 pg (27.0-33.0); MEAN CORPUSCULAR HGB CONC 32.4 g/dl (32.0-36.5); MEAN CORPUSCULAR VOLUME 109.8 fl (80.0-96.0); PLATELET COUNT, AUTOMATED 205 10^3/uL (150-450); RED BLOOD COUNT 2.64 10^6/uL (4.30-6.10); WHITE BLOOD COUNT 12.7 10^3/uL (4.0-10.0)
[2020-08-20] MEDS: FUROSEMIDE 100MG/10ML VIAL (J1940) IV SCH ×3 (06:12→21:53)
[2020-08-20 06:26] LABS: INR 2.01; PROTHROMBIN TIME 23.2 SECONDS (12.5-14.3)
[2020-08-20 06:27] LABS: PARTIAL THROMBOPLASTIN TIME 50.2 SECONDS (24.2-38.5)
[2020-08-20 06:41] LABS: ALBUMIN 2.6 GM/DL (3.2-5.2); ALT/SGPT 22 U/L (12-78); BILIRUBIN,TOTAL 1.2 MG/DL (0.2-1.0); BLOOD UREA NITROGEN 45 MG/DL (7-18); CALCIUM LEVEL 8.3 MG/DL (8.8-10.2); CARBON DIOXIDE LEVEL 41 MEQ/L (21-32); CHLORIDE LEVEL 91 MEQ/L (98-107); CREATININE FOR GFR 1.03 MG/DL (0.70-1.30); GLOMERULAR FILTRATION RATE > 60.0 (>35); GLUCOSE, FASTING 161 MG/DL (70-100); MAGNESIUM LEVEL 1.9 MG/DL (1.8-2.4); POTASSIUM SERUM 3.5 MEQ/L (3.5-5.1); SODIUM LEVEL 136 MEQ/L (136-145); TOTAL PROTEIN 5.7 GM/DL (6.4-8.2)
[2020-08-20] MEDS: VANCOMYCIN HCL 1,000 MG, VIAL MATE ADAPTER 1 EACH in NS 250 ML IV SCH ×2 (07:00→19:24)
[2020-08-20 08:00] VITALS: BP 142/67
[2020-08-20] MEDS: HumaLOG INSULIN (NovoLOG) PER UNIT SC SCH ×4 (08:16→20:06)
[2020-08-20] MEDS: POTASSIUM CHLORIDE 10 MEQ SR TABLET PO SCH ×2 (08:16→20:05)
[2020-08-20] MEDS: DOCUSATE SODIUM 100MG CAPSULE PO SCH ×2 (08:17→20:06)
[2020-08-20] MEDS: traMADol 50 MG TAB PO PRN ×2 (08:17→17:44)
[2020-08-20] MEDS: SIMVASTATIN 40 MG TAB PO SCH (08:18)
[2020-08-20] MEDS: PANTOPRAZOLE 40MG TAB (PROTONIX) PO SCH (08:18)
[2020-08-20] MEDS: atenoloL 50 MG TAB PO SCH (08:18)
--- NOTE | 2020-08-20 11:41 | IPNPDOC ---
Text Note Date of Service The patient was seen on 08/20/20. NOTE Subjective: Patient is an 85-year-old male with PMHx of HTN, CHF, CAD, A. fib (on Coumadin), who presented to the emergency room after experiencing weakness and a follow-up home. Patient was clinically found to be in fluid overload with multiple electrolyte abnormalities. Patient was admitted to the hospitalist service and general surgery/trauma services consulted for further evaluation. Patient was seen and examined at the bedside. Patient reports that he is uncomfortable given the fluid restriction that he is on report some right gluteal pain. Denies any nausea, vomiting, chest pain, shortness breath, palpitations, has not expressed any abdominal pain. Agee catheter in place. Objective: Vitals (See below) General: Patient is laying in bed, appears to be comfortable without any acute distress. Reports that he is annoyed with fluid restriction, oriented to person, place and time HEENT: Normocephalic and atraumatic CVS: +S1S2 Lungs: Diminished sounds bilaterally. No evidence of wheezing or rhonchi Abdomen: Soft, obese, nondistended, nontender Back: Area of extensive ecchymoses extending from right flank to right thigh/gluteal region; not extending beyond demarcation lines Extremities: 1+ pitting edema bilaterally still noted right knee with dark/black eschar noted Imaging: CXR 08/17: No acute cardiopulmonary process appreciated. CTA abdominal arteries 08/17: Previously noted posterior right renal cyst is ruptured with mild ill-defined fluid posterior to the right kidney. At this level there is a comminuted fracture of the posterior right 11th rib with mild surrounding hematoma. Right gluteal hematoma and right infrapatellar hematoma. No evidence of active extravasation of contrast. Atherosclerotic disease as discussed in detail above. Slight anterior loss of height of the T12 vertebral body with mild air in the anterior aspect of that vertebral body, cannot exclude mild acute compression fracture. CXR 08/17: Stable chest. No change compared to earlier today. Assessment and plan: Fracture of the posterior right 11th rib, possible T12 compression fx, right knee hematoma s/p fall - Anticoagulation on hold - c/w pain control with Tramadol - c/w incentive spirometry / acapella - PT / OT / Weight bearing will be discussed with trauma service Right knee hematoma; less likely component of infection / cellulitis - Patient is reporting right knee pain - Afebrile and hemodynamically stable - Dark eschar noted above right knee - Area of cellulitis/necrosis appears to be above-knee and not around it - c/w Vancomycin (Day #3) - Patient will be taken to the OR on Saturday for debridement of hematoma with Dr. Payne Decompensated HF with Preserved EF - Patient is currently on 2 L nasal cannula oxygen - Physical reveals evidence of fluid overload - Elevated BNP - ECHO /: EF 75%, Moderate pulmonary hypertension, dilated IVC, elevated CVP - c/w Furosemide and Metolazone s/p Supratherapeutic INR - likely 2/2 Coumadin - Patient has ecchymosis of his back and a hematoma of his right knee with an eschar - Hemodynamically stable - Hemoglobin remained stable - No evidence of active bleeding - INR improving s/p Hypokalemia - c/w Telemetry monitoring - c/w Supplementation and standing supplementation Syncopal episode 08/17/20 on admission likely 2/2 to aspiration on pills PO - Appears to have been an isolated incident - No leukocytosis or fevers - Imaging noted above - Blood cultures 08/17: Negative at 24 hours s/p Hypomagnesemia CAD w/ stenting - Patient denies any chest pain, shortness breath, palpitations - c/w Simvastatin and Atenolol - ASA and Coumadin on hold A fib - Currently is rate controlled - c/w rate control with Atenolol - Will hold full anticoagulation with Coumadin (re: Supratherapeutic INR / OR on Saturday) HTN - BP well controlled - c/w Atenolol, Furosemide, Metolazone NIDDM2 - c/w ISS DLP - c/w Simvastatin Obesity - Complicating medical care Gout - c/w Allopurinol BPH - c/w Terazosin GI prophylaxis - c/w Protonix DVT prophylaxis - c/w TEDs/Sequentials Disposition: - Will be taken to the or on Saturday Makenna JAMES, I+O VS, Makenna, I+O Laboratory Tests 08/19/20 13:53 08/20/20 05:52 Vital Signs Date Time Temp Pulse Resp B/P (MAP) Pulse Ox O2 Delivery O2 Flow Rate FiO2 08/20/20 08:47 20 08/20/20 08:18 89 142/67 08/20/20 08:17 Room Air 08/20/20 08:00 99.2 96 2.0 I&O- Last 24 Hours up to 6 AM0 08/20/20 06:00 Intake Total 1740 ml Output Total 3590 ml Balance -1850 ml AISSATOU FRAUSTO MD Aug 20, 2020 11:41
[2020-08-20 12:00] VITALS: BP 138/68
[2020-08-20 16:00] VITALS: BP 140/58
[2020-08-20 20:00] VITALS: BP 130/59
[2020-08-20] MEDS: ACETAMINOPHEN TAB 650MG DOSE (2X325MG) PO PRN (20:04)
[2020-08-20] MEDS: allopurinoL 300 MG TAB PO SCH (20:04)
[2020-08-20] MEDS: TERAZOSIN 5MG CAPSULE PO SCH (20:04)
[2020-08-20] MEDS: BISACODYL 5 MG TAB PO SCH (20:04)
[2020-08-20] MEDS: diphenhydrAMINE 50MG CAP PO SCH (20:04)
[2020-08-20] MEDS: metOLazone 5 MG TAB PO SCH (20:05)
[2020-08-21] VITALS: BP 121/54
[2020-08-21] MEDS: FUROSEMIDE 100MG/10ML VIAL (J1940) IV SCH ×3 (05:20→21:50)
[2020-08-21] MEDS: traMADol 50 MG TAB PO PRN ×3 (05:22→20:08)
[2020-08-21 05:31] VITALS: BP 138/53
[2020-08-21 05:49] LABS: HEMATOCRIT 29.1 % (42.0-52.0); HEMOGLOBIN 9.4 g/dl (13.5-17.5); MEAN CORPUSCULAR HEMOGLOBIN 35.7 pg (27.0-33.0); MEAN CORPUSCULAR HGB CONC 32.3 g/dl (32.0-36.5); MEAN CORPUSCULAR VOLUME 110.6 fl (80.0-96.0); PLATELET COUNT, AUTOMATED 201 10^3/uL (150-450); RED BLOOD COUNT 2.63 10^6/uL (4.30-6.10)
[2020-08-21 05:58] LABS: INR 1.48; PROTHROMBIN TIME 18.2 SECONDS (12.5-14.3)
[2020-08-21 06:00] LABS: PARTIAL THROMBOPLASTIN TIME 45.8 SECONDS (24.2-38.5)
[2020-08-21 06:14] LABS: ALBUMIN 2.3 GM/DL (3.2-5.2); ALT/SGPT 23 U/L (12-78); BILIRUBIN,TOTAL 1.3 MG/DL (0.2-1.0); BLOOD UREA NITROGEN 44 MG/DL (7-18); CARBON DIOXIDE LEVEL 43 MEQ/L (21-32); CHLORIDE LEVEL 91 MEQ/L (98-107); CREATININE FOR GFR 1.03 MG/DL (0.70-1.30); GLOMERULAR FILTRATION RATE > 60.0 (>35); GLUCOSE, FASTING 159 MG/DL (70-100); MAGNESIUM LEVEL 1.8 MG/DL (1.8-2.4); POTASSIUM SERUM 3.5 MEQ/L (3.5-5.1); SODIUM LEVEL 137 MEQ/L (136-145); TOTAL PROTEIN 6.6 GM/DL (6.4-8.2)
[2020-08-21] MEDS: VANCOMYCIN HCL 1,000 MG, VIAL MATE ADAPTER 1 EACH in NS 250 ML IV SCH ×2 (06:49→18:59)
[2020-08-21 08:00] VITALS: BP 133/66
[2020-08-21] MEDS: PANTOPRAZOLE 40MG TAB (PROTONIX) PO SCH (08:52)
[2020-08-21] MEDS: DOCUSATE SODIUM 100MG CAPSULE PO SCH ×2 (08:52→20:05)
[2020-08-21] MEDS: SIMVASTATIN 40 MG TAB PO SCH (08:52)
[2020-08-21] MEDS: POTASSIUM CHLORIDE 10 MEQ SR TABLET PO SCH ×2 (08:53→20:07)
[2020-08-21] MEDS: atenoloL 50 MG TAB PO SCH (08:53)
[2020-08-21] MEDS: HumaLOG INSULIN (NovoLOG) PER UNIT SC SCH ×4 (08:54→21:00)
--- NOTE | 2020-08-21 09:49 | IPNPDOC ---
Text Note Date of Service The patient was seen on 08/21/20. NOTE Subjective: Patient is an 85-year-old male with PMHx of HTN, CHF, CAD, A. fib (on Coumadin), who presented to the emergency room after experiencing weakness and a follow-up home. Patient was clinically found to be in fluid overload with multiple electrolyte abnormalities. Patient was admitted to the hospitalist service and general surgery/trauma services consulted for further evaluation. Patient was seen and examined at the bedside. Patient reports that he feels relatively fine pain is better controlled. Denies any nausea, vomiting, chest pain, shortness breath, palpitations, has not spent any abdominal pain. Reports right knee is still achy, although his right flank bothers him more. Objective: Vitals (See below) General: Patient is laying in bed, sitting up at a 30 angle none any acute distress, awake and alert, oriented to person, place and time HEENT: Normocephalic and atraumatic CVS: +S1S2 Lungs: Auscultation reveals diminished lung sounds bilaterally without evidence of wheezing, crackles or rhonchi Abdomen: Abdomen is soft without distention or tenderness, obese Back: Ecchymosis remains unchanged and is within the area of demarcation Extremities: 1+ pitting edema persists bilaterally. Right knee with dark eschar Imaging: CXR 08/17: No acute cardiopulmonary process appreciated. CTA abdominal arteries 08/17: Previously noted posterior right renal cyst is ruptured with mild ill-defined fluid posterior to the right kidney. At this level there is a comminuted fracture of the posterior right 11th rib with mild surrounding hematoma. Right gluteal hematoma and right infrapatellar hematoma. No evidence of active extravasation of contrast. Atherosclerotic disease as discussed in detail above. Slight anterior loss of height of the T12 vertebral body with mild air in the anterior aspect of that vertebral body, cannot exclude mild acute compression fracture. CXR 08/17: Stable chest. No change compared to earlier today. Assessment and plan: Fracture of the posterior right 11th rib, possible T12 compression fx, right knee hematoma s/p fall - Anticoagulation remains on hold - c/w pain control with Tramadol - c/w incentive spirometry / acapella - PT / OT / Weight bearing will be discussed with trauma service Right knee hematoma; less likely component of infection / cellulitis - No fevers noted - Dark eschar remains unchanged surrounding erythematous has remained stable - c/w Vancomycin (Day #4) - Patient will be taken to the OR on Saturday for debridement of hematoma with Dr. Payne Decompensated HF with Preserved EF - Patient is currently on 2 L nasal cannula oxygen - Physical reveals evidence of fluid overload - Elevated BNP - ECHO 08/18: EF 75%, Moderate pulmonary hypertension, dilated IVC, elevated CVP - Patient has remained negative fluid balance - c/w Furosemide and Metolazone s/p Supratherapeutic INR - likely 2/2 Coumadin - Patient has ecchymosis of his back and a hematoma of his right knee with an eschar - Hemodynamically stable / H&H stable - No evidence of active bleeding - INR normalized s/p Hypokalemia - c/w Telemetry monitoring - c/w Supplementation and standing supplementation Syncopal episode 08/17/20 on admission likely 2/2 to aspiration on pills PO - Appears to have been an isolated incident - No fevers - Imaging noted above - Blood cultures 08/17: Negative at 72 hours s/p Hypomagnesemia CAD w/ stenting - Again has no chest pain, shortness breath, palpitations - c/w Simvastatin and Atenolol - ASA and Coumadin on hold A fib - Rate remains controlled - c/w rate control with Atenolol - Will hold full anticoagulation with Coumadin (re: Supratherapeutic INR / OR on Saturday) HTN - BP well controlled - c/w Atenolol, Furosemide, Metolazone NIDDM2 - c/w ISS DLP - c/w Simvastatin Obesity - Complicating medical care Gout - c/w Allopurinol BPH - c/w Terazosin GI prophylaxis - c/w Protonix DVT prophylaxis - c/w TEDs/Sequentials Disposition: - Plan for surgical intervention tomorrow - Continue with antibiotics VS,Fishbone, I+O VS, Fishbone, I+O Laboratory Tests 08/21/20 05:20 Vital Signs Date Time Temp Pulse Resp B/P (MAP) Pulse Ox O2 Delivery O2 Flow Rate FiO2 08/21/20 08:53 76 142/70 08/21/20 08:00 98.7 18 93 Nasal Cannula 2.0 I&O- Last 24 Hours up to 6 AM 08/21/20 06:00 Intake Total 1650 ml Output Total 3830 ml Balance -2180 ml AISSATOU FRAUSTO MD Aug 21, 2020 09:49
[2020-08-21 12:10] VITALS: BP 137/44
[2020-08-21 14:00] VITALS: BP 137/66
[2020-08-21] MEDS: allopurinoL 300 MG TAB PO SCH (20:05)
[2020-08-21] MEDS: metOLazone 5 MG TAB PO SCH (20:06)
[2020-08-21] MEDS: BISACODYL 5 MG TAB PO SCH (20:06)
[2020-08-21] MEDS: TERAZOSIN 5MG CAPSULE PO SCH (20:06)
[2020-08-21] MEDS: diphenhydrAMINE 50MG CAP PO SCH (20:07)
[2020-08-21] MEDS: ACETAMINOPHEN TAB 650MG DOSE (2X325MG) PO PRN (20:08)
[2020-08-21 22:00] VITALS: BP 121/48
[2020-08-22] VITALS (8 sets, daily range): BP systolic 104–142; BP diastolic 52–67
[2020-08-22] MEDS: traMADol 50 MG TAB PO PRN ×3 (04:34→23:21)
[2020-08-22] MEDS: ACETAMINOPHEN TAB 650MG DOSE (2X325MG) PO PRN ×3 (04:35→17:19)
[2020-08-22] MEDS: FUROSEMIDE 100MG/10ML VIAL (J1940) IV SCH ×3 (06:08→21:11)
[2020-08-22] MEDS: VANCOMYCIN HCL 1,000 MG, VIAL MATE ADAPTER 1 EACH in NS 250 ML IV SCH ×2 (06:08→19:00)
[2020-08-22 06:39] LABS: HEMATOCRIT 28.4 % (42.0-52.0); HEMOGLOBIN 9.2 g/dl (13.5-17.5); MEAN CORPUSCULAR HEMOGLOBIN 36.2 pg (27.0-33.0); MEAN CORPUSCULAR HGB CONC 32.4 g/dl (32.0-36.5); MEAN CORPUSCULAR VOLUME 111.8 fl (80.0-96.0); PLATELET COUNT, AUTOMATED 218 10^3/uL (150-450); RED BLOOD COUNT 2.54 10^6/uL (4.30-6.10); WHITE BLOOD COUNT 11.9 10^3/uL (4.0-10.0)
[2020-08-22 06:48] LABS: INR 1.31; PROTHROMBIN TIME 16.6 SECONDS (12.5-14.3)
[2020-08-22 06:49] LABS: PARTIAL THROMBOPLASTIN TIME 42.2 SECONDS (24.2-38.5)
[2020-08-22 06:57] LABS: ALBUMIN 2.2 GM/DL (3.2-5.2); ALT/SGPT 65 U/L (12-78); BILIRUBIN,TOTAL 1.2 MG/DL (0.2-1.0); BLOOD UREA NITROGEN 41 MG/DL (7-18); CALCIUM LEVEL 8.1 MG/DL (8.8-10.2); CARBON DIOXIDE LEVEL 42 MEQ/L (21-32); CHLORIDE LEVEL 90 MEQ/L (98-107); GLOMERULAR FILTRATION RATE > 60.0 (>35); GLUCOSE, FASTING 147 MG/DL (70-100); MAGNESIUM LEVEL 1.8 MG/DL (1.8-2.4); POTASSIUM SERUM 3.7 MEQ/L (3.5-5.1); SODIUM LEVEL 136 MEQ/L (136-145); TOTAL PROTEIN 5.7 GM/DL (6.4-8.2)
[2020-08-22] MEDS: HumaLOG INSULIN (NovoLOG) PER UNIT SC SCH ×4 (07:22→20:38)
--- NOTE | 2020-08-22 07:44 | IPNPDOC ---
Text Note Date of Service The patient was seen on 08/22/20. NOTE No acute events over the weekend. He is still having pain in the right knee, but most of his pain is in the lower back. INR is back to normal over the weekend. VSSAF NAD skin - rt knee swelling and erythema have improved. The hematoma has a dry eschar on top of it with minimal drainage from the edges. labs - below A) 85y/o male s/p multiple falls with rt knee infected hematoma with some cellulitis thoracic compression fracture rib fx P) npo ok to start coumadin today OR this am for debridement of the right knee hematoma and eschar Erickson Payne DO VS,Fishbone, I+O VS, Fishbone, I+O Laboratory Tests 08/22/20 06:22 Vital Signs Date Time Temp Pulse Resp B/P (MAP) Pulse Ox O2 Delivery O2 Flow Rate FiO2 08/22/20 06:00 96.8 87 18 125/52 (76) 94 Nasal Cannula 2.0 I&O- Last 24 Hours up to 6 AM 08/22/20 05:59 Intake Total 1660 ml Output Total 4325 ml Balance -2665 ml KYLE PAYNE DO Aug 22, 2020 07:44
[2020-08-22] MEDS: SIMVASTATIN 40 MG TAB PO SCH (08:54)
[2020-08-22] MEDS: DOCUSATE SODIUM 100MG CAPSULE PO SCH ×2 (08:54→21:12)
[2020-08-22] MEDS: PANTOPRAZOLE 40MG TAB (PROTONIX) PO SCH (08:54)
[2020-08-22] MEDS: POTASSIUM CHLORIDE 10 MEQ SR TABLET PO SCH ×2 (08:54→21:13)
[2020-08-22] MEDS: atenoloL 50 MG TAB PO SCH (09:00)
--- NOTE | 2020-08-22 10:03 | IPNPDOC ---
Text Note Date of Service The patient was seen on 08/22/20. NOTE Subjective: Patient is an 85-year-old male with PMHx of HTN, CHF, CAD, A. fib (on Coumadin), who presented to the emergency room after experiencing weakness and a follow-up home. Patient was clinically found to be in fluid overload with multiple electrolyte abnormalities. Patient was admitted to the hospitalist service and general surgery/trauma services consulted for further evaluation. Patient was seen and examined at the bedside. Patient reports he's had an uneventful night, but does report that he is thirsty. He denies any chest pain, shortness breath, palpitations, has not spent any nausea, vomiting or abdominal pain. Reports that his right flank is still causing him pain, more so than his right knee. Objective: Vitals (See below) General: Patient sitting up in bed, appears to be comfortable without any acute distress, awake, alert, oriented 3 HEENT: AT, NC CVS: +S1S2 Lungs: No evidence of wheezing, rhonchi or rales Abdomen: Abdomen is soft, obese, nondistended and nontender Back: Extensive ecchymoses of his back extending into his thigh/gluteal region Extremities: With movement of edema, but still remains 1+ bilaterally. Right knee with dark eschar noted Imaging: CXR 08/17: No acute cardiopulmonary process appreciated. CTA abdominal arteries 08/17: Previously noted posterior right renal cyst is ruptured with mild ill-defined fluid posterior to the right kidney. At this level there is a comminuted fracture of the posterior right 11th rib with mild surrounding hematoma. Right gluteal hematoma and right infrapatellar hematoma. No evidence of active extravasation of contrast. Atherosclerotic disease as discussed in detail above. Slight anterior loss of height of the T12 vertebral body with mild air in the anterior aspect of that vertebral body, cannot exclude mild acute compression fracture. CXR 08/17: Stable chest. No change compared to earlier today. Assessment and plan: Fracture of the posterior right 11th rib, possible T12 compression fx, right knee hematoma s/p fall - Anticoagulation will be resumed tonight - c/w pain control with Tramadol - c/w incentive spirometry / acapella - PT / OT / Weight bearing as tolerated - Trauma service on consultation Right knee hematoma; less likely component of infection / cellulitis - No fevers noted - Dark eschar remains unchanged surrounding erythematous has remained stable - c/w Vancomycin (Day #5) - Patient will be taken to the OR today for debridement of hematoma with Dr. Payne Decompensated HF with Preserved EF - Patient is currently on 2 L nasal cannula oxygen - Physical reveals evidence of fluid overload - Elevated BNP - ECHO 08/18: EF 75%, Moderate pulmonary hypertension, dilated IVC, elevated CVP - Continues to remain negative fluid balance - c/w Furosemide and Metolazone s/p Supratherapeutic INR - likely 2/2 Coumadin - Patient has ecchymosis of his back and a hematoma of his right knee with an eschar - Hemodynamically stable / H&H stable - No evidence of active bleeding - INR normalized - Will resume Coumadin tonight s/p Hypokalemia - c/w Telemetry monitoring - c/w Supplementation and standing supplementation Syncopal episode 08/17/20 on admission likely 2/2 to aspiration on pills PO - Appears to have been an isolated incident - No fevers - Imaging noted above - Blood cultures 08/17: Negative at 72 hours s/p Hypomagnesemia CAD w/ stenting - Denies any chest pain, SOB, palpitations - c/w Simvastatin and Atenolol - Will resume ASA and Coumadin tonight A fib - Rate remains controlled - c/w rate control with Atenolol - Will resume Coumadin tongiht HTN - BP well controlled - c/w Atenolol, Furosemide, Metolazone NIDDM2 - c/w ISS DLP - c/w Simvastatin Obesity - Complicating medical care Gout - c/w Allopurinol BPH - c/w Terazosin GI prophylaxis - c/w Protonix DVT prophylaxis - c/w TEDs/Sequentials - Will resume Coumadin tonight Disposition: - Plan for surgical intervention tomorrow - Continue with antibiotics VS,Fishbone, I+O VS, Fishbone, I+O Laboratory Tests 08/22/20 06:22 Vital Signs Date Time Temp Pulse Resp B/P (MAP) Pulse Ox O2 Delivery O2 Flow Rate FiO2 08/22/20 06:00 96.8 87 18 125/52 (76) 94 Nasal Cannula 2.0 I&O- Last 24 Hours up to 6 AM 08/22/20 06:00 Intake Total 1660 ml Output Total 3325 ml Balance -1665 ml AISSATOU FRAUSTO MD Aug 22, 2020 10:03
[2020-08-22] MEDS ORDERED: LIDOCAINE W/EPINEPHRINE 1% 20ML VIAL As Ordered ONE (10:16)
[2020-08-22] MEDS ORDERED: propofoL 200 MG/20 ML VIAL As Ordered ONE (10:17)
[2020-08-22] MEDS ORDERED: fentaNYL 100 MCG/2 ML INJECTION (J3010) IV PRN (11:40)
--- NOTE | 2020-08-22 11:40 | RO ---
OPERATIVE NOTE DATE OF OPERATION: 08/22/2020 PREOPERATIVE DIAGNOSIS: Right knee hematoma. POSTOPERATIVE DIAGNOSIS: Right knee hematoma. PROCEDURE: Sharp excisional debridement of right knee eschar along with hematoma. SURGEON: Andrés Payne DO. FLOATER OPERATOR: None. ANESTHESIA: IV sedation with local. COMPLICATIONS: None. ESTIMATED BLOOD LOSS: Minimal. INDICATIONS FOR PROCEDURE: The patient is an 85-year-old male who presented after a fall. He had a large right knee hematoma that was causing necrosis over top of it. He already presented to the hospital with black eschar in place. Due to supratherapeutic INR, we waited over the weekend for his INR to normalize. The plan is to take him to the OR today for debridement of the eschar, as well as debridement of the hematoma. Risks and benefits of the procedure not limited to, but including bleeding, infection, damage to surrounding structures, need for further surgery discussed in detail with the patient. Informed consent was obtained and the procedure was planned. DESCRIPTION OF PROCEDURE: The patient was brought back to operating room one. After sufficient sedation, the right leg was sterilely prepped and draped with Betadine. Next, a time-out was done to confirm proper patient and proper procedure. Following that, local was injected into the skin surrounding the eschar. Once that was completed, the eschar was debrided using sharp excision with a 15-blade scalpel. Once that was completed, there was a large amount of hematoma beneath it about 2 cm deep. I was able to evacuate all of the gelatinous blood from the area, irrigated the wound down thoroughly. The tissue deep to this was very close to the patellar tendon and I did not feel comfortable debriding any deeper. Recommend just keeping this covered for now with 4x4s and gauze and do wet-to-dry dressing changes at least twice a day and continue to monitor this to see if he will need any further surgical debridement in the future. The patient was then awakened from anesthesia and sent to the PACU in stable condition.
[2020-08-22] MEDS ORDERED: oxyCODONE 5MG TAB PO PRN (12:00)
[2020-08-22] MEDS: WARFARIN SOD 5MG TAB PO SCH (17:18)
[2020-08-22] MEDS: diphenhydrAMINE 50MG CAP PO SCH (21:12)
[2020-08-22] MEDS: ASPIRIN 81MG ENTERIC TABLET PO SCH (21:12)
[2020-08-22] MEDS: BISACODYL 5 MG TAB PO SCH (21:13)
[2020-08-22] MEDS: allopurinoL 300 MG TAB PO SCH (21:13)
[2020-08-22] MEDS: TERAZOSIN 5MG CAPSULE PO SCH (21:13)
[2020-08-22] MEDS: metOLazone 5 MG TAB PO SCH (21:14)
[2020-08-23 02:00] VITALS: BP 130/57
[2020-08-23] MEDS: FUROSEMIDE 100MG/10ML VIAL (J1940) IV SCH ×2 (05:41→15:06)
[2020-08-23 06:00] VITALS: BP 132/59
[2020-08-23 06:39] LABS: HEMATOCRIT 29.3 % (42.0-52.0); HEMOGLOBIN 9.4 g/dl (13.5-17.5); MEAN CORPUSCULAR HEMOGLOBIN 35.7 pg (27.0-33.0); MEAN CORPUSCULAR HGB CONC 32.1 g/dl (32.0-36.5); MEAN CORPUSCULAR VOLUME 111.4 fl (80.0-96.0); PLATELET COUNT, AUTOMATED 242 10^3/uL (150-450); RED BLOOD COUNT 2.63 10^6/uL (4.30-6.10); WHITE BLOOD COUNT 10.2 10^3/uL (4.0-10.0)
[2020-08-23 06:50] LABS: INR 1.2; PROTHROMBIN TIME 15.5 SECONDS (12.5-14.3)
[2020-08-23 06:51] LABS: PARTIAL THROMBOPLASTIN TIME 42.7 SECONDS (24.2-38.5)
[2020-08-23] MEDS: VANCOMYCIN HCL 1,000 MG, VIAL MATE ADAPTER 1 EACH in NS 250 ML IV SCH (07:15)
[2020-08-23 07:16] LABS: ALBUMIN 2.2 GM/DL (3.2-5.2); ALT/SGPT 252 U/L (12-78); BILIRUBIN,TOTAL 1.2 MG/DL (0.2-1.0); BLOOD UREA NITROGEN 42 MG/DL (7-18); CALCIUM LEVEL 8.8 MG/DL (8.8-10.2); CARBON DIOXIDE LEVEL 44 MEQ/L (21-32); CHLORIDE LEVEL 88 MEQ/L (98-107); CREATININE FOR GFR 0.81 MG/DL (0.70-1.30); GLOMERULAR FILTRATION RATE > 60.0 (>35); GLUCOSE, FASTING 130 MG/DL (70-100); POTASSIUM SERUM 3.6 MEQ/L (3.5-5.1); SODIUM LEVEL 136 MEQ/L (136-145); TOTAL PROTEIN 5.9 GM/DL (6.4-8.2)
[2020-08-23] MEDS: PANTOPRAZOLE 40MG TAB (PROTONIX) PO SCH (08:19)
[2020-08-23] MEDS: HumaLOG INSULIN (NovoLOG) PER UNIT SC SCH ×4 (08:19→20:14)
[2020-08-23] MEDS: atenoloL 50 MG TAB PO SCH (08:20)
[2020-08-23] MEDS: DOCUSATE SODIUM 100MG CAPSULE PO SCH ×2 (08:20→20:29)
[2020-08-23] MEDS: SIMVASTATIN 40 MG TAB PO SCH (08:20)
[2020-08-23] MEDS: POTASSIUM CHLORIDE 10 MEQ SR TABLET PO SCH ×2 (08:20→20:32)
[2020-08-23] MEDS: traMADol 50 MG TAB PO PRN ×2 (08:21→17:24)
[2020-08-23] MEDS: ACETAMINOPHEN TAB 650MG DOSE (2X325MG) PO PRN ×2 (08:21→17:23)
--- NOTE | 2020-08-23 13:39 | IPNPDOC ---
Text Note Date of Service The patient was seen on 08/23/20. NOTE No acute events overnight. His pain and movement in the right knee have improv ed. No dressing changes yet from nursing. VSSAF NAD skin - rt knee swelling and erythema have improved. the dressing was removed from the knee, and there is no active bleeding, wound bed is clean. labs - below A) 85y/o male s/p multiple falls with rt knee infected hematoma with some cellulitis thoracic compression fracture rib fx POD#1 s/p debridement of necrotic tissue and hematoma from right knee P) reg diet PT and OT without any restrictions from surgical standpoint stable for d/c when cleared by PT and medicine. follow up with wound care clinic on d/c Erickson Payne DO VS,Makenna, I+O VS, Makenna, I+O Laboratory Tests 08/23/20 06:15 Vital Signs Date Time Temp Pulse Resp B/P (MAP) Pulse Ox O2 Delivery O2 Flow Rate FiO2 08/23/20 08:51 18 08/23/20 08:20 85 132/59 08/23/20 07:55 3.0 08/23/20 06:00 98.4 92 Nasal Cannula I&O- Last 24 Hours up to 6 AM 08/23/20 05:59 Intake Total 2510 ml Output Total 3625 ml Balance -1115 ml KYLE PAYNE DO Aug 23, 2020 13:39
[2020-08-23 14:00] VITALS: BP 130/60
--- NOTE | 2020-08-23 16:15 | IPNPDOC ---
Text Note Date of Service The patient was seen on 08/23/20. NOTE Subjective: -He denies any chest pain, shortness breath, palpitations, nausea, vomiting or abdominal pain. Objective: Vitals (See below) General: Patient sitting up in bed, appears to be comfortable without any acute distress, awake, alert, oriented 3 HEENT: AT, NC CVS: +S1S2 Lungs: No evidence of wheezing, rhonchi or rales Abdomen: Abdomen is soft, obese, nondistended and nontender Back: Extensive ecchymoses of his back extending into his thigh/gluteal region Extremities: With trace edema in LE bilaterally. Right knee with c/d/i dressing Labs: Reviewed Imaging: CXR 08/17: No acute cardiopulmonary process appreciated. CTA abdominal arteries 08/17: Previously noted posterior right renal cyst is ruptured with mild ill-defined fluid posterior to the right kidney. At this level there is a comminuted fracture of the posterior right 11th rib with mild surrounding hematoma. Right gluteal hematoma and right infrapatellar hematoma. No evidence of active extravasation of contrast. Atherosclerotic disease as discussed in detail above. Slight anterior loss of height of the T12 vertebral body with mild air in the anterior aspect of that vertebral body, cannot exclude mild acute compression fracture. CXR 08/17: Stable chest. No change compared to earlier today. Assessment: 85-year-old male with PMHx of HTN, CHF, CAD, A. fib (on Coumadin), who presented to the emergency room after experiencing weakness and a fall nad was found to be in kevin fluid overload with multiple electrolyte abnormalities and was admitted to the hospitalist service and general surgery/trauma services consulted for further evaluation. Fracture of the posterior right 11th rib, possible T12 compression fx, right knee hematoma s/p fall - Anticoagulation was resumed yesterday, thus far without noted bleeding - c/w pain control with Tramadol PRN - c/w incentive spirometry / acapella - PT / OT / Weight bearing as tolerated - Trauma service on consultation Right knee hematoma: -Had debridement/evacuation of hematoma by Dr. Payne 08/22 Decompensated HF with Preserved EF - Patient is currently on 2 L nasal cannula oxygen - Physical reveals evidence of fluid overload - Elevated BNP - ECHO 08/18: EF 75%, Moderate pulmonary hypertension, dilated IVC, elevated CVP - Continues to remain negative fluid balance - DC IV Furosemide and restore 60 PO BID and continue Metolazone s/p Supratherapeutic INR - likely 2/2 Coumadin - Patient has ecchymosis of his back and a hematoma of his right knee with an eschar - Hemodynamically stable / H&H stable - No evidence of active bleeding - INR normalized - continue warfarin s/p Hypokalemia: resolved - c/w Telemetry monitoring - c/w Supplementation and standing supplementation s/p Hypomagnesemia: resolved CAD w/ stenting - Denies any chest pain, SOB, palpitations - c/w Simvastatin and Atenolol - Will resume ASA and Coumadin tonight Chronic A fib - Rate remains controlled - c/w rate control with Atenolol - c/w Coumadin HTN - BP well controlled - c/w Atenolol, Furosemide, Metolazone NIDDM2 - c/w ISS DLP - c/w Simvastatin Obesity - Complicating medical care Gout - c/w Allopurinol BPH - c/w Terazosin GI prophylaxis - c/w Protonix DVT prophylaxis - c/w TEDs/Sequentials - Will resume Coumadin tonight Disposition: - PT/OT for safe discharge planning. VS,Fishbone, I+O VS, Fishbone, I+O Laboratory Tests 08/23/20 06:15 Vital Signs Date Time Temp Pulse Resp B/P (MAP) Pulse Ox O2 Delivery O2 Flow Rate FiO2 08/23/20 14:00 98.3 65 16 130/60 (83) 95 Nasal Cannula 4.0 I&O- Last 24 Hours up to 6 AM 08/23/20 06:00 Intake Total 2630 ml Output Total 4325 ml Balance -1695 ml KAYCE PEREZ MD Aug 23, 2020 16:15
[2020-08-23] MEDS: WARFARIN SOD 5MG TAB PO SCH (17:23)
[2020-08-23] MEDS: allopurinoL 300 MG TAB PO SCH (20:28)
[2020-08-23] MEDS: BISACODYL 5 MG TAB PO SCH (20:29)
[2020-08-23] MEDS: metOLazone 5 MG TAB PO SCH (20:29)
[2020-08-23] MEDS: TERAZOSIN 5MG CAPSULE PO SCH (20:29)
[2020-08-23] MEDS: ASPIRIN 81MG ENTERIC TABLET PO SCH (20:29)
[2020-08-23] MEDS: diphenhydrAMINE 50MG CAP PO SCH (20:30)
[2020-08-23 22:00] VITALS: BP 118/51
[2020-08-24 06:00] VITALS: BP 109/65
[2020-08-24] MEDS: HumaLOG INSULIN (NovoLOG) PER UNIT SC SCH ×4 (08:46→21:00)
[2020-08-24] MEDS: PANTOPRAZOLE 40MG TAB (PROTONIX) PO SCH (08:46)
[2020-08-24] MEDS: SIMVASTATIN 40 MG TAB PO SCH (08:46)
[2020-08-24] MEDS: DOCUSATE SODIUM 100MG CAPSULE PO SCH ×2 (08:46→21:56)
[2020-08-24] MEDS: FUROSEMIDE 20 MG TAB PO SCH ×2 (08:46→17:27)
[2020-08-24] MEDS: POTASSIUM CHLORIDE 10 MEQ SR TABLET PO SCH ×2 (08:47→21:57)
[2020-08-24] MEDS: atenoloL 50 MG TAB PO SCH (08:47)
[2020-08-24] MEDS: ACETAMINOPHEN TAB 650MG DOSE (2X325MG) PO PRN ×2 (08:48→14:20)
[2020-08-24] MEDS: traMADol 50 MG TAB PO PRN ×3 (08:48→21:59)
[2020-08-24 08:52] LABS: HEMATOCRIT 29.1 % (42.0-52.0); HEMOGLOBIN 9.3 g/dl (13.5-17.5); MEAN CORPUSCULAR HEMOGLOBIN 35.4 pg (27.0-33.0); MEAN CORPUSCULAR VOLUME 110.6 fl (80.0-96.0); PLATELET COUNT, AUTOMATED 259 10^3/uL (150-450); RED BLOOD COUNT 2.63 10^6/uL (4.30-6.10); WHITE BLOOD COUNT 10.3 10^3/uL (4.0-10.0)
[2020-08-24 09:13] LABS: INR 1.24; PROTHROMBIN TIME 15.9 SECONDS (12.5-14.3)
[2020-08-24 09:16] LABS: BLOOD UREA NITROGEN 39 MG/DL (7-18); CARBON DIOXIDE LEVEL 38 MEQ/L (21-32); CHLORIDE LEVEL 90 MEQ/L (98-107); CREATININE FOR GFR 0.89 MG/DL (0.70-1.30); GLOMERULAR FILTRATION RATE > 60.0 (>35); GLUCOSE, FASTING 110 MG/DL (70-100); POTASSIUM SERUM 3.7 MEQ/L (3.5-5.1); SODIUM LEVEL 135 MEQ/L (136-145)
--- NOTE | 2020-08-24 13:58 | IPNPDOC ---
Text Note Date of Service The patient was seen on 08/24/20. NOTE Subjective: -He denies any chest pain, shortness breath, palpitations, nausea, vomiting or abdominal pain. -has been declining really working with PT/OT or getting out of bed per nursing recommendation. Discussed at length that we all need him to cooperate to improve the likelihood of returning home soon. He expressed understanding. Objective: Vitals (See below) General: Patient sitting up in bed, appears to be comfortable without any acute distress, awake, alert, oriented 3 HEENT: AT, NC CVS: +S1S2 Lungs: No evidence of wheezing, rhonchi or rales Abdomen: Abdomen is soft, obese, nondistended and nontender Back: Extensive ecchymoses of his back extending into his thigh/gluteal region Extremities: With trace edema in LE bilaterally. Right knee with c/d/i dressing Labs: Reviewed. pending AM labs Imaging: CXR 08/17: No acute cardiopulmonary process appreciated. CTA abdominal arteries 08/17: Previously noted posterior right renal cyst is ruptured with mild ill-defined fluid posterior to the right kidney. At this level there is a comminuted fracture of the posterior right 11th rib with mild surrounding hematoma. Right gluteal hematoma and right infrapatellar hematoma. No evidence of active extravasation of contrast. Atherosclerotic disease as discussed in detail above. Slight anterior loss of height of the T12 vertebral body with mild air in the anterior aspect of that vertebral body, cannot exclude mild acute compression fracture. CXR 08/17: Stable chest. No change compared to earlier today. Assessment: 85-year-old male with PMHx of HTN, CHF, CAD, A. fib (on Coumadin), who presented to the emergency room after experiencing weakness and a fall nad was found to be in kevin fluid overload with multiple electrolyte abnormalities and was admitted to the hospitalist service and general surgery/trauma services consulted for further evaluation. Fracture of the posterior right 11th rib, possible T12 compression fx, right knee hematoma s/p fall - Now back on warfarin without evidence of further bleeding - c/w pain control with Tramadol PRN - c/w incentive spirometry / acapella - PT / OT / Weight bearing as tolerated - Trauma service on consultation Right knee hematoma: -Had debridement/evacuation of hematoma by Dr. Payne 08/22 Decompensated HF with Preserved EF - Patient is currently on 1 L nasal cannula oxygen - Physical reveals evidence of fluid overload - Elevated BNP - ECHO 08/18: EF 75%, Moderate pulmonary hypertension, dilated IVC, elevated CVP - Continues to remain negative fluid balance - DC'd IV Furosemide and back on 60 PO BID and continue Metolazone s/p Supratherapeutic INR - likely 2/2 Coumadin - Patient has ecchymosis of his back and a hematoma of his right knee with an eschar - Hemodynamically stable / H&H stable - No evidence of active bleeding - INR normalized - continue warfarin s/p Hypokalemia: resolved - c/w Telemetry monitoring - c/w Supplementation and standing supplementation s/p Hypomagnesemia: resolved CAD w/ stenting - Denies any chest pain, SOB, palpitations - c/w Simvastatin and Atenolol - Will resume ASA and Coumadin tonight Chronic A fib - Rate remains controlled - c/w rate control with Atenolol - c/w Coumadin HTN - BP well controlled - c/w Atenolol, Furosemide, Metolazone NIDDM2 - c/w ISS DLP - c/w Simvastatin Obesity - Complicating medical care Gout - c/w Allopurinol BPH - c/w Terazosin GI prophylaxis - c/w Protonix DVT prophylaxis - c/w TEDs/Sequentials - Will resume Coumadin tonight Disposition: - PT/OT for safe discharge planning. VS,Fishbone, I+O VS, Fishbone, I+O Vital Signs Date Time Temp Pulse Resp B/P (MAP) Pulse Ox O2 Delivery O2 Flow Rate FiO2 08/24/20 06:00 97.9 77 18 109/65 (80) 94 Nasal Cannula 3.0 I&O- Last 24 Hours up to 6 AM 08/24/20 05:59 Intake Total 1440 ml Output Total 2925 ml Balance -1485 ml KAYCE PEREZ MD Aug 24, 2020 08:46
[2020-08-24 14:00] VITALS: BP 108/64
[2020-08-24] MEDS: WARFARIN SOD 5MG TAB PO SCH (17:27)
[2020-08-24] MEDS: ASPIRIN 81MG ENTERIC TABLET PO SCH (21:56)
[2020-08-24] MEDS: metOLazone 5 MG TAB PO SCH (21:56)
[2020-08-24] MEDS: diphenhydrAMINE 50MG CAP PO SCH (21:56)
[2020-08-24] MEDS: allopurinoL 300 MG TAB PO SCH (21:56)
[2020-08-24] MEDS: TERAZOSIN 5MG CAPSULE PO SCH (21:57)
[2020-08-24] MEDS: BISACODYL 5 MG TAB PO SCH (21:57)
[2020-08-24 22:00] VITALS: BP 129/58
[2020-08-25 06:00] VITALS: BP 163/67
[2020-08-25 06:00] LABS: HEMATOCRIT 30.6 % (42.0-52.0); HEMOGLOBIN 9.7 g/dl (13.5-17.5); MEAN CORPUSCULAR HEMOGLOBIN 35.3 pg (27.0-33.0); MEAN CORPUSCULAR HGB CONC 31.7 g/dl (32.0-36.5); MEAN CORPUSCULAR VOLUME 111.3 fl (80.0-96.0); PLATELET COUNT, AUTOMATED 286 10^3/uL (150-450); RED BLOOD COUNT 2.75 10^6/uL (4.30-6.10); WHITE BLOOD COUNT 10.1 10^3/uL (4.0-10.0)
[2020-08-25 06:14] LABS: INR 1.26; PROTHROMBIN TIME 16.1 SECONDS (12.5-14.3)
[2020-08-25 06:22] LABS: BLOOD UREA NITROGEN 44 MG/DL (7-18); CALCIUM LEVEL 8.6 MG/DL (8.8-10.2); CARBON DIOXIDE LEVEL 41 MEQ/L (21-32); CHLORIDE LEVEL 91 MEQ/L (98-107); CREATININE FOR GFR 0.95 MG/DL (0.70-1.30); GLOMERULAR FILTRATION RATE > 60.0 (>35); GLUCOSE, FASTING 126 MG/DL (70-100); POTASSIUM SERUM 3.7 MEQ/L (3.5-5.1); SODIUM LEVEL 138 MEQ/L (136-145)
[2020-08-25] MEDS: HumaLOG INSULIN (NovoLOG) PER UNIT SC SCH ×4 (07:30→20:25)
[2020-08-25 09:00] LABS: ALBUMIN 2.3 GM/DL (3.2-5.2); ALT/SGPT 279 U/L (12-78); BILIRUBIN,DIRECT 0.4 MG/DL (0.0-0.2)
[2020-08-25] MEDS: SIMVASTATIN 40 MG TAB PO SCH (09:28)
[2020-08-25] MEDS: POTASSIUM CHLORIDE 10 MEQ SR TABLET PO SCH ×2 (09:29→20:12)
[2020-08-25] MEDS: atenoloL 50 MG TAB PO SCH (09:29)
[2020-08-25] MEDS: FUROSEMIDE 80 MG TAB PO SCH ×2 (09:30→18:11)
[2020-08-25] MEDS: PANTOPRAZOLE 40MG TAB (PROTONIX) PO SCH (09:31)
[2020-08-25] MEDS: traMADol 50 MG TAB PO PRN (09:31)
[2020-08-25] MEDS: DOCUSATE SODIUM 100MG CAPSULE PO SCH ×2 (09:31→20:13)
--- NOTE | 2020-08-25 10:02 | IPNPDOC ---
Text Note Date of Service The patient was seen on 08/25/20. NOTE Subjective: -He denies any chest pain, shortness breath, palpitations, nausea, vomiting or abdominal pain. Objective: Vitals: See below General: Awake, alert, oriented 3, NAD HEENT: AT, NC CVS: RRR, +S1S2 Lungs: No evidence of wheezing, rhonchi or rales Abdomen: Abdomen is soft, obese, nondistended and nontender Back: Extensive ecchymoses of his back extending into his thigh/gluteal region Extremities: With trace edema in LE bilaterally. Right knee with c/d/i dressing Labs: Reviewed. Imaging: CXR 08/17: No acute cardiopulmonary process appreciated. CTA abdominal arteries 08/17: Previously noted posterior right renal cyst is ruptured with mild ill-defined fluid posterior to the right kidney. At this level there is a comminuted fracture of the posterior right 11th rib with mild surrounding hematoma. Right gluteal hematoma and right infrapatellar hematoma. No evidence of active extravasation of contrast. Atherosclerotic disease as discussed in detail above. Slight anterior loss of height of the T12 vertebral body with mild air in the anterior aspect of that vertebral body, cannot exclude mild acute compression fracture. CXR 08/17: Stable chest. No change compared to earlier today. Assessment: 85-year-old male with PMHx of HTN, CHF, CAD, A. fib (on Coumadin), who presented to the emergency room after experiencing weakness and a fall nad was found to be in kevin fluid overload with multiple electrolyte abnormalities and was admitted to the hospitalist service and general surgery/trauma services consulted for further evaluation. Fracture of the posterior right 11th rib, possible T12 compression fx, right knee hematoma s/p fall - Now back on warfarin without evidence of further bleeding - c/w pain control with Tramadol PRN - c/w incentive spirometry / acapella - PT / OT / Weight bearing as tolerated - Trauma service on consultation Right knee hematoma: -Had debridement/evacuation of hematoma by Dr. Payne 08/22 Decompensated HF with Preserved EF - Patient is currently on 1 L nasal cannula oxygen - Physical reveals evidence of fluid overload - Elevated BNP - ECHO 08/18: EF 75%, Moderate pulmonary hypertension, dilated IVC, elevated CVP - Continues to remain negative fluid balance - s/p IV furosemide and now on 80mg PO BID - continue Metolazone QHS s/p Supratherapeutic INR - 2/2 Coumadin - Patient has ecchymosis of his back and a hematoma of his right knee with an eschar - Hemodynamically stable / H&H stable - No evidence of active bleeding - INR normalized - continue warfarin s/p Hypokalemia: resolved - c/w Telemetry monitoring - c/w Supplementation and standing supplementation s/p Hypomagnesemia: resolved CAD w/ stenting - Denies any chest pain, SOB, palpitations - c/w Simvastatin and Atenolol - Will resume ASA and Coumadin tonight Chronic A fib - Rate remains controlled - c/w rate control with Atenolol - c/w Coumadin HTN - BP well controlled - c/w Atenolol, Furosemide, Metolazone NIDDM2 - c/w ISS DLP - c/w Simvastatin Obesity - Complicating medical care Gout - c/w Allopurinol BPH - c/w Terazosin GI prophylaxis - c/w Protonix DVT prophylaxis - Coumadin Disposition: - Ongoing PT/OT for safe discharge planning. Refusing the idea of rehab facility and reports minimal poor mobility at home and has been increasingly providing most of his care herself without outside help. VS,Fishbone, I+O VS, Fishbone, I+O Laboratory Tests 08/25/20 05:40 Vital Signs Date Time Temp Pulse Resp B/P (MAP) Pulse Ox O2 Delivery O2 Flow Rate FiO2 08/25/20 06:00 98.2 80 19 163/67 (99) 90 Nasal Cannula 1.5 I&O- Last 24 Hours up to 6 AM 08/25/20 06:00 Intake Total 2060 ml Output Total 450 ml Balance 1610 ml KAYCE PEREZ MD Aug 25, 2020 08:39
[2020-08-25] MEDS: ACETAMINOPHEN TAB 650MG DOSE (2X325MG) PO PRN ×2 (13:42→20:14)
[2020-08-25 14:00] VITALS: BP 95/44
--- NOTE | 2020-08-25 14:41 | REP ---
INDICATION: worsening hypoxemia c/f PNA. COMPARISON: Multiple latest 08/17/2020 at 3:48 p.m. TECHNIQUE: Portable FINDINGS: The technique utilized in obtaining the radiograph has magnified the cardiac silhouette and accentuated the interstitial markings. Since the latest prior exam a a subtle opacity has developed in the left lower lobe. The patient is tilted rotated to the left. There is cardiomegaly accentuated by technique. There is no change in the osseous structures. IMPRESSION: New left lower lobe opacity as described above. Subsegmental atelectasis versus early pneumonia. PA and lateral views of the chest recommended. Other findings as described above. <Electronically signed by John Escobedo > 08/25/20 [id number]
[2020-08-25] MEDS ORDERED: LevoFLOXacin IV 750 MG in IV 1 EA IV SCH (17:00)
[2020-08-25] MEDS: WARFARIN SOD 5MG TAB PO SCH (18:12)
[2020-08-25 19:57] VITALS: BP 116/45
[2020-08-25] MEDS: TERAZOSIN 5MG CAPSULE PO SCH (20:13)
[2020-08-25] MEDS: allopurinoL 300 MG TAB PO SCH (20:13)
[2020-08-25] MEDS: diphenhydrAMINE 50MG CAP PO SCH (20:13)
[2020-08-25] MEDS: metOLazone 5 MG TAB PO SCH (20:13)
[2020-08-25] MEDS: ASPIRIN 81MG ENTERIC TABLET PO SCH (20:13)
[2020-08-25] MEDS: BISACODYL 5 MG TAB PO SCH (20:14)
[2020-08-26 06:00] VITALS: BP 90/48
[2020-08-26] MEDS ORDERED: LevoFLOXacin 750 MG TABLET PO SCH (06:00)
[2020-08-26 07:16] LABS: HEMATOCRIT 31.9 % (42.0-52.0); HEMOGLOBIN 10.1 g/dl (13.5-17.5); MEAN CORPUSCULAR HEMOGLOBIN 35.2 pg (27.0-33.0); MEAN CORPUSCULAR HGB CONC 31.7 g/dl (32.0-36.5); MEAN CORPUSCULAR VOLUME 111.1 fl (80.0-96.0); PLATELET COUNT, AUTOMATED 333 10^3/uL (150-450); RED BLOOD COUNT 2.87 10^6/uL (4.30-6.10); WHITE BLOOD COUNT 10.1 10^3/uL (4.0-10.0)
[2020-08-26 07:27] LABS: INR 1.36; PROTHROMBIN TIME 17.1 SECONDS (12.5-14.3)
[2020-08-26 07:41] LABS: BLOOD UREA NITROGEN 43 MG/DL (7-18); CALCIUM LEVEL 8.6 MG/DL (8.8-10.2); CARBON DIOXIDE LEVEL 39 MEQ/L (21-32); CHLORIDE LEVEL 92 MEQ/L (98-107); CREATININE FOR GFR 0.95 MG/DL (0.70-1.30); GLOMERULAR FILTRATION RATE > 60.0 (>35); GLUCOSE, FASTING 128 MG/DL (70-100); POTASSIUM SERUM 3.5 MEQ/L (3.5-5.1); SODIUM LEVEL 137 MEQ/L (136-145)
[2020-08-26 08:37] VITALS: BP 90/48
[2020-08-26] MEDS: POTASSIUM CHLORIDE 10 MEQ SR TABLET PO SCH (08:37)
[2020-08-26] MEDS: PANTOPRAZOLE 40MG TAB (PROTONIX) PO SCH (08:37)
[2020-08-26] MEDS: atenoloL 50 MG TAB PO SCH (08:37)
[2020-08-26] MEDS: FUROSEMIDE 80 MG TAB PO SCH (08:38)
[2020-08-26] MEDS: DOCUSATE SODIUM 100MG CAPSULE PO SCH (08:38)
[2020-08-26] MEDS: ACETAMINOPHEN TAB 650MG DOSE (2X325MG) PO PRN (08:39)
[2020-08-26] MEDS: SIMVASTATIN 40 MG TAB PO SCH (08:39)
[2020-08-26] MEDS: HumaLOG INSULIN (NovoLOG) PER UNIT SC SCH (08:41)
--- NOTE | 2020-08-26 09:28 | DS.PDOC ---
Discharge Summary General Date of Admission Aug 17, 2020 at 17:42 Date of Discharge 08/26/2020 Attending Physician: KAYCE PEREZ MD Discharge Summary PROCEDURES PERFORMED DURING STAY: R knee debridement on 08/22/2020 ADMITTING DIAGNOSES: Traumatic fall DISCHARGE DIAGNOSES: Tramatic fall with R knee hematoma R knee cellulitis HFpEF exacerbation Left lower lobe PNA Atrial fibrillation on warfarin Hypertension Hyperlipidemia DM GERD Gout Coronary artery disease COMPLICATIONS/CHIEF COMPLAINT: Fall,Hematoma Of R Knee Injury,R Rib Fracture,Weak. HISTORY OF PRESENT ILLNESS: 85-year-old M with multiple comorbidities including obesity, CHF, A. fib, hypertension, CAD who presents to the hospital due to worsening chronic weakness at home after a fall. Per his , she reported that he sustained a fall at home approximately 8 days prior to presentation i/s/o refusing to use his walker and was using his cane but he is very unstable when he only uses his cane which resulted in him twisting and falling on his right side while standing in his bedroom onto the floor. After the impact he refused to go to the hospital but over the coming days his mobility was worse and his was having difficulty taking care of him and he eventually agreed to come to the hospital. His knee was bruised with a black eschar that reportedly developed over the 4 days prior to presentation. He was also noted to have increased bilateral lower extremity swelling that his noticed. The patient denied having chest pain, shortness of breath. HOSPITAL COURSE: In the emergency department attempts were made initially to transfer the patient for evaluation by orthopedic surgery as we do not have ortho-spine surgery currently as patient imaging revealed a T12 compression fracture as well as rib fracture and developing right knee hematoma. We were able to obtain a consultation from orthopedic surgeon at [facility] who said there would be no intervention even if patient would be transferred and recommended patient stays at [facility]. There was a discussion by Dr. Khalil with Dr. Payne who agreed with the plan and Dr. Payne would consult for trauma for the knee. Patient will be ad mitted to the hospital service due to weakness, evaluation of trauma by surgery, management of fluid overload and electronic imbalances. Of note in the emergency department patient had hypokalemia and was given oral potassium replacement but choked on the pills and had a period of unresponsiveness during which he had to be bagged but regained consciousness shortly afterwards. His swallowing later improved without further choking or aspiration events. He was also found to have a supratherapeutic INR and on surgical evaluation, he was found to have the hematoma on the right patellar area having caused some superficial skin necrosis resulting in a large eschar over top of the area with concerns for possible superficial cellulitis such that at the time, surgery recommended avoiding incision and drainage due to him being supratherapeutic with an INR still over 4, recommended warm compresses to the area as well as IV antibiotic. On 08/22 the INR had normalized and he was taken to the OR by Dr. Payne for R knee debridement that went well. He had 7 days of empiric vancomycin that was eventually discontinued on 08/23. His warfarin was eventually restarted without evidence of bleeding. Meanwhile he was found to be in decompensated HF and he received IV diuretics until he was euvolemic after which he was returned to PO diuretics. On 08/25 he was noted to have worsening hypoxemia from baseline and a repat CXR showed a developed a new left lower lobe opacity c/f PNA and he was started on levaquin. Given the recent fall, surgery and acute illness he was quite weak and worked with PT/OT and recommended for STR discharge. He is now being discharged to the [facility]. DISCHARGE MEDICATIONS: Please see below. ALLERGIES: Please see below. PHYSICAL EXAMINATION ON DISCHARGE: VITAL SIGNS: Please see below. General: Awake, alert, oriented 3, NAD HEENT: AT, NC CVS: RRR, +S1S2 Lungs: No evidence of wheezing, rhonchi or rales Abdomen: Abdomen is soft, obese, nondistended and nontender Back: Extensive ecchymoses of his back extending into his thigh/gluteal region Extremities: With trace edema in LE bilaterally. Right knee with c/d/i dressing LABORATORY DATA: Please see below. IMAGING: CXR: 08/25: The technique utilized in obtaining the radiograph has magnified the cardiac silhouette and accentuated the interstitial markings. Since the latest prior exam a a subtle opacity has developed in the left lower lobe. The patient is tilted rotated to the left. There is cardiomegaly accentuated by technique. There is no change in the osseous structures. IMPRESSION: New left lower lobe opacity as described above. Subsegmental atelectasis versus early pneumonia. PA and lateral views of the chest recommended. Other findings as described above. CXR 08/17: No acute cardiopulmonary process appreciated. CTA abdominal arteries 08/17: Previously noted posterior right renal cyst is ruptured with mild ill-defined fluid posterior to the right kidney. At this level there is a comminuted fra cture of the posterior right 11th rib with mild surrounding hematoma. Right gluteal hematoma and right infrapatellar hematoma. No evidence of active extravasation of contrast. Atherosclerotic disease as discussed in detail above. Slight anterior loss of height of the T12 vertebral body with mild air in the anterior aspect of that vertebral body, cannot exclude mild acute compression fracture. CXR 08/17: Stable chest. No change compared to earlier today. 08/17 TTE: Underlying atrial fibrillation with controlled ventricular response. Technically challenging study in light of the patient's body habitus, but diagnostically useful information was still obtained. M-mode and two-dimensional echocardiography was performed with pulse, continuous wave, color flow, and tissue Doppler studies. Borderline symmetrical left ventricular hypertrophy with hyperkinetic wall motion. Moderately dilated left atrium with currently normal estimated mean left atrial pressure. Moderately dilated right heart chambers with right ventricular free wall hypokinesis and Doppler evidence of at least moderate pulmonary hypertension. Dilated inferior vena cava with perhaps some respiratory collapse in keeping with a significantly elevated central venous pressure. Slightly dilated aortic root, but normal ascending aortic diameter. Mild thickening of the edges of three equal size aortic cusps with normal cusp separation and only trace insufficiency. Mild mitral annular calcification with normal leaflet thickness and excursion and no posterior systolic buckling. No more than trace insufficiency. Normal appearing tricuspid valve with mild insufficiency. PROGNOSIS: Good ACTIVITY: As tolerated DIET: consistent carb DISCHARGE PLAN: [facility] DISPOSITION: [facility] DISCHARGE INSTRUCTIONS: [facility], with follow up with surgery within 2w and GP within 1w ITEMS TO FOLLOWUP ON ON OUTPATIENT: R knee surgery PCP/GP follow up for PNA, CHF and debility DISCHARGE CONDITION: Stable TIME SPENT ON DISCHARGE: 52 minutes. Vital Signs/I&Os Vital Signs Date Time Temp Pulse Resp B/P (MAP) Pulse Ox O2 Delivery O2 Flow Rate FiO2 08/26/20 08:37 78 90/48 08/26/20 07:37 2.0 08/26/20 06:00 98.3 19 92 Nasal Cannula I&O- Last 24 Hours up to 6 AM 08/26/20 06:00 Intake Total 1200 ml Output Total 950 ml Balance 250 ml Laboratory Data Labs 24H Laboratory Tests 2 08/25/20 20:05: Bedside Glucose (Misc Panel) 169H 08/26/20 06:45: Nucleated Red Blood Cells % (auto) 0.0, Prothrombin Time 17.1H, Prothromb Time International Ratio 1.36, Anion Gap 6L, Glomerular Filtration Rate > 60.0, Calcium Level 8.6L CBC/BMP Laboratory Tests 08/26/20 06:45 FSBS Laboratory Tests Test 08/25/20 20:05 Range/Units Bedside Glucose (Misc Panel) 169 83-110 MG/DL Microbiology Microbiology 08/26/20 Gram Stain, Received Pending 08/26/20 Sputum Culture, Received Pending 08/18/20 Blood Culture - Final, Complete NO GROWTH AFTER 5 DAYS 08/18/20 Blood Culture - Final, Complete NO GROWTH AFTER 5 DAYS Discharge Medications Scheduled Allopurinol (Zyloprim) 300 Mg Tab, 300 MG PO QPM, (Reported) Aspirin (Aspirin EC) 81 Mg Tablet.dr, 81 MG PO QPM, (Reported) Atenolol (Atenolol) 50 Mg Tablet, 50 MG PO DAILY, (Reported) Bisacodyl (Dulcolax) 5 Mg Tab, 10 MG PO QHS, (Reported) Diphenhydramine HCl (Diphenhydramine HCl) 50 Mg Cap, 50 MG PO QHS, (Reported) Docusate Sodium (Stool Softener) 100 Mg Cap, 100 MG PO BID, (Reported) Famotidine (Famotidine) 20 Mg Tablet, 20 MG PO DAILY, (Reported) Furosemide (Furosemide) 20 Mg Tablet, 60 MG PO BID, (Reported) TAKES AT 0400/1600 Loratadine (Claritin) 10 Mg Capsule, 10 MG PO DAILY, (Reported) Metformin HCl (Metformin HCl) 500 Mg Tab, 500 MG PO BID, (Reported) Metolazone (Metolazone) 5 Mg Tablet, 5 MG PO QPM, (Reported) Multivitamins (Thera M Plus Tablet) 1 Tab Tab, 1 TAB PO DAILY, (Reported) Pantoprazole Sodium (Pantoprazole Sodium) 40 Mg Tablet.dr, 40 MG PO DAILY, (Reported) Potassium Chloride (Potassium Chloride) 10 Meq Tab.er.prt, 10 MEQ PO DAILY, (Reported) Simvastatin (Zocor) 80 Mg Tablet, 80 MG PO DAILY, (Reported) Terazosin HCl (Terazosin HCl) 5 Mg Cap, 5 MG PO QHS, (Reported) Warfarin Sodium (Warfarin Sodium) 7.5 Mg Tablet, 7.5 MG PO 2XW, (Reported) SUNDAYS/THURSDAYS AT 2200 Warfarin Sodium (Warfarin Sodium) 5 Mg Tablet, 5 MG PO 5XW, (Reported) SAT//SAT/SAT/SAT AT 2200 Scheduled PRN Acetaminophen (Acetaminophen) 500 Mg Tab, 1,000 MG PO Q4H PRN for PAIN, (Reported) Carboxymethylcellulos/Glycerin (Refresh Optive Eye Drops) 15 Ml Drops, 1 DROP OU QID PRN for DRY EYES, (Reported) Nitroglycerin (Nitroglycerin) 0.4 Mg Sub, 0.4 MG SL NITRO PRN for CHEST PAIN, (Reported) Tramadol HCl (Tramadol HCl) 50 Mg Tab, 50 MG PO QID PRN for PAIN, (Reported) Allergies Coded Allergies: No Known Allergies (Unverified , 08/17/20) KAYCE PEREZ MD Aug 26, 2020 09:28
[2020-08-26] MEDS ORDERED: FURO80TA2 PO (09:37)
[2020-08-26] MEDS ORDERED: LEVO750T13 PO (09:37)
[2020-08-26] MEDS ORDERED: POTA1TAB14 PO (09:37)
[2020-08-26] MEDS ORDERED: DOK1CAP7 PO (09:37)
== END 2020-08-26 12:51 | DRG 570 ==
LOC: M ED 12:34 → M ED INP 17:42 → ENRESERV 18:35 → M PCU 08-18 00:25 → M MS5PR 08-21 12:09
PROVIDERS: ADMIT Internal Medicine; ATTEND Internal Medicine
PROC: 0JBN0ZZ Excision of Right Lower Leg Subcutaneous Tissue and Fascia, Open Approach (ICD-10-PCS; principal; 2020-08-22 11:00)
DX: S80.01XA Contusion of right knee, initial encounter (principal); I50.33 Acute on chronic diastolic (congestive) heart failure; J18.9 Pneumonia, unspecified organism; L03.115 Cellulitis of right lower limb; Z68.42 Body mass index [BMI] 45.0-49.9, adult; S22.080A Wedge compression fracture of T11-T12 vertebra, initial encounter for closed fracture; S22.31XA Fracture of one rib, right side, initial encounter for closed fracture; I96 Gangrene, not elsewhere classified; I48.20 Chronic atrial fibrillation, unspecified; E87.6 Hypokalemia; E83.42 Hypomagnesemia; I11.0 Hypertensive heart disease with heart failure; E11.9 Type 2 diabetes mellitus without complications; E66.9 Obesity, unspecified; E78.5 Hyperlipidemia, unspecified; K21.9 Gastro-esophageal reflux disease without esophagitis; M10.9 Gout, unspecified; Z79.01 Long term (current) use of anticoagulants; I25.10 Atherosclerotic heart disease of native coronary artery without angina pectoris; W18.30XA Fall on same level, unspecified, initial encounter; Y92.013 Bedroom of single-family (private) house as the place of occurrence of the external cause; Z79.82 Long term (current) use of aspirin; Z79.899 Other long term (current) drug therapy; Z98.41 Cataract extraction status, right eye; Z96.642 Presence of left artificial hip joint; Z96.653 Presence of artificial knee joint, bilateral; Z87.891 Personal history of nicotine dependence; Z95.2 Presence of prosthetic heart valve; N40.0 Benign prostatic hyperplasia without lower urinary tract symptoms; R29.6 Repeated falls

== ENCOUNTER → 2020-08-29 | Outpatient (REF) ==
[~2020-08-29] MED LIST changes: +DOK1CAP7 PO; +FAMO20TA PO; +FURO20TA2 PO; +FURO80TA2 PO; +LEVO750T13 PO; -MAGNESIUM SULFATE 1GM/2ML (8MEQ/2ML) VIAL ONE; +METO5TA PO; +OPTI0.5D5 OU; +PANT-23 PO; +POTA10TA17 PO
[2020-08-29 13:15] LABS: INR 1.72; PROTHROMBIN TIME 20.5 SECONDS (12.5-14.3)
[2020-08-29 13:37] LABS: ALBUMIN 2.6 GM/DL (3.2-5.2); BILIRUBIN,TOTAL 0.8 MG/DL (0.2-1.0); CALCIUM LEVEL 8.2 MG/DL (8.8-10.2); CREATININE FOR GFR 1.33 MG/DL (0.70-1.30); GLOMERULAR FILTRATION RATE 54.4 (>35); POTASSIUM SERUM 3.4 MEQ/L (3.5-5.1); TOTAL PROTEIN 6.6 GM/DL (6.4-8.2)
== END ==
LOC: SKLAB4 11:39
PROVIDERS: ATTEND Internal Medicine
DX: Z79.01 Long term (current) use of anticoagulants (principal)

== ENCOUNTER → 2020-09-02 | Outpatient (REF) ==
[2020-09-02 10:46] LABS: CALCIUM LEVEL 7.5 MG/DL (8.8-10.2); CREATININE FOR GFR 1.29 MG/DL (0.70-1.30); GLOMERULAR FILTRATION RATE 56.4 (>35); POTASSIUM SERUM 2.9 MEQ/L (3.5-5.1)
== END ==
LOC: SKLAB4 11:34
PROVIDERS: ATTEND Internal Medicine
DX: E87.6 Hypokalemia (principal); N18.9 Chronic kidney disease, unspecified

== ENCOUNTER → 2020-09-03 | Outpatient (REF) ==
[2020-09-03 08:32] LABS: BLOOD UREA NITROGEN 49 MG/DL (7-18); CALCIUM LEVEL 7.3 MG/DL (8.8-10.2); CARBON DIOXIDE LEVEL 34 MEQ/L (21-32); CHLORIDE LEVEL 91 MEQ/L (98-107); CREATININE FOR GFR 1.09 MG/DL (0.70-1.30); GLOMERULAR FILTRATION RATE > 60.0 (>35); GLUCOSE, FASTING 131 MG/DL (70-100); POTASSIUM SERUM 3.5 MEQ/L (3.5-5.1); SODIUM LEVEL 132 MEQ/L (136-145)
== END ==
LOC: SKLAB4 10:07
PROVIDERS: ATTEND Internal Medicine
DX: N18.9 Chronic kidney disease, unspecified (principal)

== ENCOUNTER → 2020-09-05 | Outpatient (REF) ==
[2020-09-05 08:02] LABS: INR 3.36; PROTHROMBIN TIME 34.8 SECONDS (12.5-14.3)
== END ==
LOC: SKLAB4 10:09
PROVIDERS: ATTEND Internal Medicine
DX: I48.91 Unspecified atrial fibrillation (principal); I50.9 Heart failure, unspecified

== ENCOUNTER → 2020-09-06 | Outpatient (REF) ==
[2020-09-06 11:44] LABS: BLOOD UREA NITROGEN 46 MG/DL (7-18); CALCIUM LEVEL 8.1 MG/DL (8.8-10.2); CARBON DIOXIDE LEVEL 35 MEQ/L (21-32); CHLORIDE LEVEL 97 MEQ/L (98-107); CREATININE FOR GFR 0.81 MG/DL (0.70-1.30); GLOMERULAR FILTRATION RATE > 60.0 (>35); GLUCOSE, FASTING 154 MG/DL (70-100); MAGNESIUM LEVEL 1.4 MG/DL (1.8-2.4); POTASSIUM SERUM 3.8 MEQ/L (3.5-5.1); SODIUM LEVEL 139 MEQ/L (136-145)
--- NOTE | 2020-09-06 14:55 | REP ---
INDICATION: LLL PNEUMONIA. COMPARISON: Comparison study August 25, 2020.. TECHNIQUE: AP portable upright radiograph. Single-view. FINDINGS: There is a mild cardiomegaly unchanged. Pulmonary vasculature is cephalized. There is no evidence of pleural effusion or pulmonary edema. No focal infiltrate is appreciated. IMPRESSION: Cardiomegaly. Vascular cephalization. No definite infiltrate. <Electronically signed by Alex Lundberg > 09/06/20 [id number]
== END ==
LOC: SKLAB4 10:09
PROVIDERS: ATTEND Internal Medicine
DX: I51.7 Cardiomegaly (principal); N18.9 Chronic kidney disease, unspecified

== ENCOUNTER → 2020-09-08 | Outpatient (REF) ==
[2020-09-08 10:01] LABS: INR 3.73; PROTHROMBIN TIME 37.8 SECONDS (12.5-14.3)
[2020-09-08 10:05] LABS: BLOOD UREA NITROGEN 36 MG/DL (7-18); CALCIUM LEVEL 8.7 MG/DL (8.8-10.2); CARBON DIOXIDE LEVEL 34 MEQ/L (21-32); CHLORIDE LEVEL 100 MEQ/L (98-107); GLOMERULAR FILTRATION RATE > 60.0 (>35); GLUCOSE, FASTING 194 MG/DL (70-100); POTASSIUM SERUM 4.4 MEQ/L (3.5-5.1); SODIUM LEVEL 140 MEQ/L (136-145)
== END ==
LOC: SKLAB4 09:51
PROVIDERS: ATTEND Internal Medicine
DX: I48.91 Unspecified atrial fibrillation (principal); I50.9 Heart failure, unspecified

== ENCOUNTER → 2020-09-12 | Outpatient (REF) ==
[2020-09-12 07:57] LABS: INR 1.6; PROTHROMBIN TIME 19.4 SECONDS (12.5-14.3)
== END ==
LOC: SKLAB4 08:17
PROVIDERS: ATTEND Internal Medicine
DX: I48.91 Unspecified atrial fibrillation (principal)

== ENCOUNTER → 2020-09-13 | Outpatient (REF) ==
[2020-09-13 07:48] LABS: BLOOD UREA NITROGEN 25 MG/DL (7-18); CALCIUM LEVEL 8.6 MG/DL (8.8-10.2); CARBON DIOXIDE LEVEL 37 MEQ/L (21-32); CHLORIDE LEVEL 100 MEQ/L (98-107); CREATININE FOR GFR 0.68 MG/DL (0.70-1.30); GLOMERULAR FILTRATION RATE > 60.0 (>35); GLUCOSE, FASTING 117 MG/DL (70-100); MAGNESIUM LEVEL 1.6 MG/DL (1.8-2.4); POTASSIUM SERUM 3.8 MEQ/L (3.5-5.1); SODIUM LEVEL 142 MEQ/L (136-145)
== END ==
LOC: SKLAB4 08:45
PROVIDERS: ATTEND Internal Medicine
DX: I48.91 Unspecified atrial fibrillation (principal)

== ENCOUNTER → 2020-09-15 | Outpatient (REF) ==
[2020-09-15 10:02] LABS: INR 1.83; PROTHROMBIN TIME 21.6 SECONDS (12.5-14.3)
== END ==
LOC: SKLAB4 08:46
PROVIDERS: ATTEND Internal Medicine
DX: I48.91 Unspecified atrial fibrillation (principal)

== ENCOUNTER → 2020-09-21 | Outpatient (REF) ==
[~2020-09-21] MED LIST changes: +ALLO300T2 PO; +BACITAB PO; +DULC10SU2 PR; +ENEMENE PR; +FEVE650S3 PR; +MAGN400T3 PO; +MECL-136 PO; +MELA5TAB7 PO; +MOM30SS PO; +QC A650T3 PO; +REFR0.5D8 OU; +[UNRECOGNIZED DRUG - CODE] PO
[2020-09-21 08:40] LABS: INR 2.42; PROTHROMBIN TIME 26.9 SECONDS (12.5-14.3)
[2020-09-21 08:53] LABS: BLOOD UREA NITROGEN 22 MG/DL (7-18); CALCIUM LEVEL 8.8 MG/DL (8.8-10.2); CARBON DIOXIDE LEVEL 39 MEQ/L (21-32); CHLORIDE LEVEL 100 MEQ/L (98-107); CREATININE FOR GFR 0.66 MG/DL (0.70-1.30); GLOMERULAR FILTRATION RATE > 60.0 (>35); GLUCOSE, FASTING 133 MG/DL (70-100); MAGNESIUM LEVEL 1.9 MG/DL (1.8-2.4); POTASSIUM SERUM 3.7 MEQ/L (3.5-5.1); SODIUM LEVEL 142 MEQ/L (136-145)
== END ==
LOC: SKLAB4 09-20 14:44
PROVIDERS: ATTEND Internal Medicine
DX: I48.91 Unspecified atrial fibrillation (principal)

== ENCOUNTER → 2020-09-22 | Outpatient (CLI) | payer MEDICARE, OTHER ==
[~2020-09-22] MED LIST changes: +ATIV1TAB7 PO; +ATRO1OPD SL; +AVOD0.5C PO; +BISA10SU PR; +DOK1CAP4 PO; -DOK1CAP7 PO; +FLOM0.4C39 PO; +HYOS125TA PO; -MAGN400T3 PO; +MAGN400T33 PO; +MORP1SOL SL; +ONDA4TAB6 PO; +POTA-149 PO; -POTA10TA16 PO; +TRAN1DIS4 TOP
== END ==
LOC: M ST 14:35
PROVIDERS: ATTEND Nurse Practitioner Family
DX: R13.10 Dysphagia, unspecified (principal)

== ENCOUNTER → 2020-09-22 | Outpatient (REF) ==
[2020-09-22 11:40] LABS: INR 2.6; PROTHROMBIN TIME 28.4 SECONDS (12.5-14.3)
== END ==
LOC: SKLAB4 12:11
PROVIDERS: ATTEND Internal Medicine
DX: I48.91 Unspecified atrial fibrillation (principal)

== ENCOUNTER → 2020-09-27 | Outpatient (REF) ==
[2020-09-27 10:02] LABS: INR 3.19; PROTHROMBIN TIME 33.4 SECONDS (12.5-14.3)
== END ==
LOC: SKLAB4 07:14
PROVIDERS: ATTEND Internal Medicine
DX: I48.91 Unspecified atrial fibrillation (principal)

== ENCOUNTER → 2020-09-29 | Outpatient (REF) ==
[~2020-09-29] MED LIST changes: -ALLO300T2 PO; -ATIV1TAB7 PO; -ATRO1OPD SL; -AVOD0.5C PO; -BACITAB PO; -BISA10SU PR; -DOK1CAP4 PO; +DOK1CAP7 PO; -DULC10SU2 PR; -ENEMENE PR; -FEVE650S3 PR; -FLOM0.4C39 PO; -HYOS125TA PO; -MAGN400T33 PO; -MECL-136 PO; -MELA5TAB7 PO; -MOM30SS PO; -MORP1SOL SL; -ONDA4TAB6 PO; -POTA-149 PO; +POTA10TA16 PO; -QC A650T3 PO; -REFR0.5D8 OU; -TRAN1DIS4 TOP; -[UNRECOGNIZED DRUG - CODE] PO
[2020-09-29 10:13] LABS: INR 2.63; PROTHROMBIN TIME 28.7 SECONDS (12.5-14.3)
== END ==
LOC: SKLAB4 11:26
PROVIDERS: ATTEND Internal Medicine
DX: I48.91 Unspecified atrial fibrillation (principal)

== ENCOUNTER → 2020-10-04 | Outpatient (REF) ==
[2020-10-04 09:07] LABS: HEMATOCRIT 36.4 % (42.0-52.0); HEMOGLOBIN 11.5 g/dl (13.5-17.5); MEAN CORPUSCULAR HEMOGLOBIN 35.1 pg (27.0-33.0); MEAN CORPUSCULAR HGB CONC 31.6 g/dl (32.0-36.5); PLATELET COUNT, AUTOMATED 289 10^3/uL (150-450); RED BLOOD COUNT 3.28 10^6/uL (4.30-6.10); WHITE BLOOD COUNT 10.1 10^3/uL (4.0-10.0)
[2020-10-04 09:11] LABS: INR 2.57; PROTHROMBIN TIME 28.2 SECONDS (12.5-14.3)
[2020-10-04 09:53] LABS: ALBUMIN 2.8 GM/DL (3.2-5.2); ALT/SGPT 14 U/L (12-78); BILIRUBIN,TOTAL 0.5 MG/DL (0.2-1.0); BLOOD UREA NITROGEN 19 MG/DL (7-18); CALCIUM LEVEL 8.8 MG/DL (8.8-10.2); CARBON DIOXIDE LEVEL 36 MEQ/L (21-32); CHLORIDE LEVEL 99 MEQ/L (98-107); CREATININE FOR GFR 0.63 MG/DL (0.70-1.30); GLOMERULAR FILTRATION RATE > 60.0 (>35); GLUCOSE, FASTING 124 MG/DL (70-100); POTASSIUM SERUM 3.9 MEQ/L (3.5-5.1); SODIUM LEVEL 142 MEQ/L (136-145); TOTAL PROTEIN 6.4 GM/DL (6.4-8.2)
[2020-10-04 10:44] LABS: HEMOGLOBIN A1c 6.3 %
== END ==
LOC: SKLAB4 12:30
PROVIDERS: ATTEND Internal Medicine
DX: D64.9 Anemia, unspecified (principal); E11.9 Type 2 diabetes mellitus without complications; I48.91 Unspecified atrial fibrillation

== ENCOUNTER → 2020-10-06 | Outpatient (REF) ==
[2020-10-06 13:11] LABS: INR 2.43
[2020-10-06 16:29] LABS: HEMATOCRIT 37.7 % (42.0-52.0); HEMOGLOBIN 11.7 g/dl (13.5-17.5); MEAN CORPUSCULAR HEMOGLOBIN 34.4 pg (27.0-33.0); MEAN CORPUSCULAR VOLUME 110.9 fl (80.0-96.0); PLATELET COUNT, AUTOMATED 297 10^3/uL (150-450); WHITE BLOOD COUNT 11.1 10^3/uL (4.0-10.0)
== END ==
LOC: SKLAB4 11:33
PROVIDERS: ATTEND Internal Medicine
DX: I48.91 Unspecified atrial fibrillation (principal); K62.5 Hemorrhage of anus and rectum; R19.5 Other fecal abnormalities

== ENCOUNTER → 2020-10-06 | Outpatient (REF) | payer MEDICARE, OTHER | LOC: M LAB 17:41 | PROVIDERS: ATTEND Nurse Practitioner Family | DX: K62.5 Hemorrhage of anus and rectum (principal) ==

== ENCOUNTER → 2020-10-07 | Outpatient (REF) | payer MEDICARE, OTHER ==
[~2020-10-07] MED LIST changes: +ALLO300T2 PO; +ATIV1TAB7 PO; +ATRO1OPD SL; +AVOD0.5C PO; +BACITAB PO; +BISA10SU PR; +DOK1CAP4 PO; -DOK1CAP7 PO; +DULC10SU2 PR; +ENEMENE PR; +FEVE650S3 PR; +FLOM0.4C39 PO; +HYOS125TA PO; +MAGN400T3 PO; +MECL-136 PO; +MELA5TAB7 PO; +MOM30SS PO; +MORP1SOL SL; +ONDA4TAB6 PO; +QC A650T3 PO; +REFR0.5D8 OU; +TRAN1DIS4 TOP; +[UNRECOGNIZED DRUG - CODE] PO
[2020-10-07 09:49] LABS: HEMATOCRIT 36.7 % (42.0-52.0); HEMOGLOBIN 11.5 g/dl (13.5-17.5); MEAN CORPUSCULAR HGB CONC 31.3 g/dl (32.0-36.5); MEAN CORPUSCULAR VOLUME 111.6 fl (80.0-96.0); PLATELET COUNT, AUTOMATED 266 10^3/uL (150-450); RED BLOOD COUNT 3.29 10^6/uL (4.30-6.10); WHITE BLOOD COUNT 9.3 10^3/uL (4.0-10.0)
[2020-10-07 09:53] LABS: INR 2.14; PROTHROMBIN TIME 24.4 SECONDS (12.5-14.3)
== END ==
LOC: SKLAB4 08:17
PROVIDERS: ATTEND Internal Medicine
DX: K62.5 Hemorrhage of anus and rectum (principal)

== ENCOUNTER → 2020-10-07 | Outpatient (REF) | payer MEDICARE, OTHER ==
[~2020-10-07] MED LIST changes: -ALLO300T2 PO; -ATIV1TAB7 PO; -ATRO1OPD SL; -AVOD0.5C PO; -BACITAB PO; -BISA10SU PR; -DOK1CAP4 PO; +DOK1CAP7 PO; -DULC10SU2 PR; -ENEMENE PR; -FEVE650S3 PR; -FLOM0.4C39 PO; -HYOS125TA PO; -MAGN400T3 PO; -MECL-136 PO; -MELA5TAB7 PO; -MOM30SS PO; -MORP1SOL SL; -ONDA4TAB6 PO; -QC A650T3 PO; -REFR0.5D8 OU; -TRAN1DIS4 TOP; -[UNRECOGNIZED DRUG - CODE] PO
== END ==
LOC: M LAB 02:00
PROVIDERS: ATTEND Nurse Practitioner Family
DX: K62.5 Hemorrhage of anus and rectum (principal)

== ENCOUNTER → 2020-10-10 | Outpatient (CLI) | payer MEDICARE, OTHER ==
--- NOTE | 2020-10-10 15:09 | REP ---
INDICATION: OPEN WOUND OF RT KNEE COMPARISON: None. TECHNIQUE: Right lower extremity arterial ultrasound with Doppler FINDINGS: All numeric values represent peak systolic velocity in cm/SEC The ankle brachial index was not obtained. LOG SCALER: 119.8 biphasic Profunda: 93.4 biphasic SFA proximal: 91.1 biphasic SFA mid: 66.2 biphasic SFA distal: 68.8 biphasic Popliteal: 105.8 biphasic LIZETT proximal: Occluded Tibioperoneal trunk: 114.8 monophasic CONSTRUCTION FLAGGER proximal: Occluded CONSTRUCTION FLAGGER distal: Occluded LIZETT:Occluded Moderate to severe plaque formation was seen from the common femoral artery to the ankle IMPRESSION: As above <Electronically signed by John Escobedo > 10/10/20 [id number]
== END ==
LOC: M RAD 13:27
PROVIDERS: ATTEND Surgery
DX: S81.001A Unspecified open wound, right knee, initial encounter (principal); X58.XXXA Exposure to other specified factors, initial encounter; Y92.89 Other specified places as the place of occurrence of the external cause; Y93.9 Activity, unspecified; Y99.9 Unspecified external cause status

== ENCOUNTER → 2020-10-11 | Outpatient (REF) ==
[2020-10-11 08:04] LABS: INR 2.31; PROTHROMBIN TIME 25.9 SECONDS (12.5-14.3)
== END ==
LOC: SKLAB4 11:31
PROVIDERS: ATTEND Internal Medicine
DX: I48.91 Unspecified atrial fibrillation (principal)

== ENCOUNTER → 2020-10-18 | Outpatient (REF) ==
[~2020-10-18] MED LIST changes: +ALLO300T2 PO; +ATIV1TAB7 PO; +ATRO1OPD SL; +AVOD0.5C PO; +BACITAB PO; +BISA10SU PR; +DOK1CAP4 PO; -DOK1CAP7 PO; +DULC10SU2 PR; +ENEMENE PR; +FEVE650S3 PR; +FLOM0.4C39 PO; +HYOS125TA PO; +MAGN400T33 PO; +MECL-136 PO; +MELA5TAB7 PO; +MOM30SS PO; +MORP1SOL SL; +ONDA4TAB6 PO; +POTA-149 PO; -POTA10TA16 PO; +QC A650T3 PO; +REFR0.5D8 OU; +TRAN1DIS4 TOP; +[UNRECOGNIZED DRUG - CODE] PO
[2020-10-18 09:52] LABS: INR 4.95; PROTHROMBIN TIME 46.1 SECONDS (12.7-14.5)
== END ==
LOC: SKLAB4 10:53
PROVIDERS: ATTEND Internal Medicine
DX: I48.91 Unspecified atrial fibrillation (principal)

== ENCOUNTER 2020-10-19 14:08 | Inpatient (IN) | payer MEDICARE, OTHER ==
[~2020-10-19] VITALS: Ht 190.5 cm; Wt 122.1 kg
[~2020-10-19 14:08] MED LIST changes: -ALLO300T2 PO; -ATIV1TAB7 PO; -ATRO1OPD SL; -AVOD0.5C PO; -BACITAB PO; -BISA10SU PR; -DULC10SU2 PR; -ENEMENE PR; -FEVE650S3 PR; -FLOM0.4C39 PO; -HYOS125TA PO; -MAGN400T33 PO; -MECL-136 PO; -MELA5TAB7 PO; -MOM30SS PO; -MORP1SOL SL; -ONDA4TAB6 PO; -POTA-149 PO; +POTA10TA16 PO; -QC A650T3 PO; -REFR0.5D8 OU; -TRAN1DIS4 TOP; -[UNRECOGNIZED DRUG - CODE] PO
[2020-10-19] MEDS ORDERED: NS 1,000 ML IV SCH (15:45)
--- NOTE | 2020-10-19 16:18 | REP ---
INDICATION: Firm abdomen r/o obstruction. COMPARISON: The most recent abdomen/pelvis CT dated 12/05/2011. TECHNIQUE: Abdomen/pelvis CT without IV or bowel contrast. FINDINGS: There is a small left pleural effusion as an interval change with compression atelectasis of the adjacent lung. There is no bowel distention or obstruction. There is a large volume of fecal residue in the rectosigmoid colon and sigmoid colon. The bladder is markedly distended as an interval change. I note the patient has a history of prostate carcinoma. Seminal vesicles and prostate are not visualized on the current study. This could be from obscuration by beam hardening artifact as a result of interval placement of a left hip arthroplasty, or interval prostatectomy. There is no pelvic adenopathy or mass. There is no pelvic ascites. There are no lytic, blastic or destructive skeletal changes, however, there are compression deformities with kyphoplasties in the L1 and L3 vertebral bodies. Additionally there are nondisplaced fractures in the posterior arches of the right 11th and 12th ribs. The unenhanced hepatic parenchyma is unremarkable. There are numerous gallbladder calculi there appear to have increased in number. There is no evidence of acute cholecystitis or biliary duct dilatation. The pancreas and unenhanced spleen are unremarkable. The adrenals are unremarkable. There is a focal fluid collection at the posterior margin of the right kidney, adjacent to the 11th and 12th rib fractures. There was a renal cyst in this location previously. This cyst now has a more elongated appearance, possibly a consequence of the rib fractures. The abdominal aorta is unremarkable. There is no periaortic adenopathy or mass. IMPRESSION: There is no bowel distention or obstruction. The bladder is markedly distended as an interval change. Patient has a history of prostate carcinoma. The prostate cannot be visualized as discussed above. There is a small left pleural effusion with atelectasis of the adjacent lung. Cholelithiasis without acute cholecystitis. Fractures in the posterior arches of the right 11th 12th ribs. Fluid collection interposed between the rib fractures and right kidney. This was identified is a renal cyst previously. Has changed in configuration, appears more elongated, possibly a consequence of the rib fractures. Demineralization. No lytic, blastic or destructive skeletal changes. There are L1 and L3 vertebral body kyphoplasties. There has been interval placement of a left hip arthroplasty. Beam hardening from this are past arthroplasty obscures visualization of the prostate. Large volume of fecal residue in the rectal and pupil and sigmoid colon without bowel obstruction. This is possibly an impaction. <Electronically signed by Andrés Aguilera > 10/19/20 [id number]
[2020-10-19 16:47] LABS: BASO # 0.1 10^3/uL (0.0-0.2); BASO % 0.6 % (0.0-1.0); EOS # 0.1 10^3/uL (0.0-0.5); EOS % 0.6 % (0.0-3.0); HEMATOCRIT 34.8 % (42.0-52.0); HEMOGLOBIN 10.8 g/dl (13.5-17.5); LYMPH # 1.3 10^3/uL (1.5-5.0); LYMPH % 10.1 % (24.0-44.0); MEAN CORPUSCULAR HEMOGLOBIN 34.5 pg (27.0-33.0); MEAN CORPUSCULAR VOLUME 111.2 fl (80.0-96.0); MONO # 1.2 10^3/uL (0.0-0.8); MONO % 9.3 % (2.0-8.0); NEUTROPHILS # 9.6 10^3/uL (1.5-8.5); NEUTROPHILS % 77.5 % (36.0-66.0); PLATELET COUNT, AUTOMATED 227 10^3/uL (150-450); RED BLOOD COUNT 3.13 10^6/uL (4.30-6.10); WHITE BLOOD COUNT 12.4 10^3/uL (4.0-10.0)
[2020-10-19] MEDS ORDERED: LIDOCAINE 2% 5ML JELLY UROJET TOP ONE (17:00)
[2020-10-19] MEDS ORDERED: TAMSULOSIN 0.4 MG CAP PO ONE (17:15)
[2020-10-19 17:29] LABS: ALBUMIN 2.7 GM/DL (3.2-5.2); BILIRUBIN,DIRECT 0.1 MG/DL (0.0-0.2); BILIRUBIN,TOTAL 0.2 MG/DL (0.2-1.0); CALCIUM LEVEL 8.6 MG/DL (8.8-10.2); CREATININE FOR GFR 2.05 MG/DL (0.70-1.30); POTASSIUM SERUM 6.4 MEQ/L (3.5-5.1); TOTAL PROTEIN 6.6 GM/DL (6.4-8.2)
[2020-10-19] MEDS: NS 1,000 ML IV SCH (18:30)
[2020-10-19] MEDS ORDERED: DEXTROSE 50% 50 ML SYRINGE IV PRN (19:00)
[2020-10-19] MEDS ORDERED: GLUCAGON INJ 1MG VIAL SC PRN (19:00)
[2020-10-19] MEDS ORDERED: GLUCOSE 4GM CHEW TABLET PO PRN (19:00)
--- NOTE | 2020-10-19 19:00 | HPEPDOC ---
[facility] Medical History & Physical Date of Admission Oct 19, 2020 Date of Service: Oct 19, 2020 Primary Care Physician: Jr Olson Collins Attending Physician: IAN KENNEDY DO History and Physical CHIEF COMPLAINT: Abdominal mass HISTORY OF PRESENT ILLNESS: Patient is an 85-year-old male presented to the emergency department for severe disability with a chief complaint of abdominal mass. Patient's states that she noticed a large mass in the patient's lower abdomen which was given the patient some tenderness yesterday. Patient went to the wound care doctor as the patient has a wound on his right knee who recommended the patient come to the emergency department to get the mass checked. Patient was examined by the provider at [facility] who wanted to rule out a possible umbilical hernia as the cause of the mass. Patient states that he does urinate all the time but it is small amounts. Patient says he wears a diaper. Patient had a CT scan performed in the emergency department showed that his bladder was greatly distended. A Agee catheter was placed and drained 2 L of urine. The urine has since turned bloody as it was a difficult catheterization. Patient says he is feeling better and that the abdominal mass has since resolved. Patient is otherwise feeling well. PAST MEDICAL HISTORY: 1. Atrial fibrillation on Coumadin for anticoagulation. 2. Hypertension. 3. Type 2 diabetes mellitus. 4. Heart failure 5. Gout 6. Prostate cancer previously treated with radiation PAST SURGICAL HISTORY: 1. Bilateral total knee arthroplasty. 2. Left hip arthroplasty. 3. Ulnar nerve release bilaterally. 4. LASEK SOCIAL HISTORY: Patient is and currently lives in the [facility]. Patient used to smoke but quit in the 60s. Patient used to be a heavy drinker but no longer drinks alcohol. Patient denies illicit drug use. Patient used to work for the [employer] FAMILY HISTORY: Patient's mother of diabetes. Patient's father of a heart attack. Patient sister also has diabetes ALLERGIES: Please see below. REVIEW OF SYSTEMS: General: Patient denies fevers HEENT: Patient denies headaches Cardiovascular: Patient denies chest pain Respiratory: Patient denies shortness of breath, cough GI: Patient reports that his abdominal pain has improved. Patient denies any nausea, vomiting, diarrhea : Patient reports that he urinates all the time but it is a small amount. Extremities: Patient denies swelling or pain in extremities Neurological: Patient denies numbness or tingling in legs Skin: Patient denies any new rashes or lesions. Hematologic: Patient denies any easy bruising. Lymphatic: Patient denies any lumps lumps or bumps in neck, axilla, or groin HOME MEDICATIONS: Please see below. PHYSICAL EXAMINATION: VITAL SIGNS: Temperature 98.2, pulse 78, respiratory rate 18, blood pressure 127/61, pulse oximetry 98% on room air. General: Alert and oriented male patient who was sitting on the stretcher when I walked in the room. Patient did not appear to be in any acute distress. HEENT: Normocephalic, atraumatic, moist mucous membranes. Neck: No lymphadenopathy or thyromegaly Cardiac: Regular rate and rhythm, no murmurs, normal S1, normal S2 Pulm: Clear to auscultation bilaterally. No wheezes, rhonchi, rales Abd: Nondistended, nontender to palpation, normal bowel sounds, no CVA tenderness Ext: No edema bilateral lower extremities Neuro: Patient is able to move all four extremities on command. Patient reports equal sensation to light touch in bilateral upper and lower extremities Skin: Skin of the head, neck, back, abdomen, upper and lower extremities are examined and show no evidence of rash or lesion. LABORATORY DATA: See below. IMAGING: CT the abdomen and pelvis performed without contrast on 10/19/2020 is reported to show no bowel distention or obstruction. The bladder is markedly distended has not interval change. Patient has a history of prostate carcinoma. The prostate cannot be visualized as discussed above. Small left pleural effusion with atelectasis of the adjacent lung. Cholelithiasis without acute cholecystitis. Fractures in the posterior arches of the 11th and 12th ribs. Fluid collection interposed between the rib fractures and right kidney. This was identified as a renal cyst previously. Has change in configuration appears more elongated possibly consequence of the rib fractures. Demineralization. No lytic, blastic or destructive skeletal change. There is an L1 and L3 vertebral body kyphoplasties. There has been interval placement of a left hip arthroplasty. Beam hardening from this are past arthroplasty of screws visualization of the prostate. Large volume of fecal residue in the rectal and proximal sigmoid colon without bowel obstruction. This is possibly an impaction. MICROBIOLOGY: Please see below. ASSESSMENT: 85-year-old male who presented with an abdominal mass was found to have a markedly distended bladder causing obstructive uropathy leading to acute kidney injury and hyperkalemia. . PLAN: 1. Acute kidney injury. Patient's creatinine on October 04, 2020 was 0.63 and today in the emergency department it was 2.05. This is most likely secondary to the patient's obstructive uropathy. Patient's obstructive uropathy is most likely secondary to his prostate. It seems like the patient is able to urinate but only small amounts leading to the patient retaining large amounts of urine. Patient has Agee catheter in place and will continue receiving IV fluids at 100 cc an hour. Patient has repeat BMP due at midnight. 2. Hyperkalemia. This is most likely secondary to the patient's acute kidney injury. Kayexalate will not be given at this time as the acute kidney injury is secondary to an obstructive uropathy and now that the obstruction is resolved and the patient is able to make urine, patient should have his potassium correct quickly. Patient's EKG does not show any changes for hyperkalemia. Patient's potassium level was rechecked and is pending at the time of writing this at 1900 on 10/19/2020. 3. Hematuria. This is most likely secondary to the patient's traumatic catheterization. If the Agee continues to bleed after a few days, patient may need urological follow-up. We will continue to monitor. Patient is on Coumadin which would be held at this time pending patient's INR being checked at midnight. We will continue to monitor. 4. Chronic atrial fibrillation. Patient is on Coumadin for anticoagulation which would be held at this time. 5. Hypertension. We will continue the patient is on medications. 6. Diabetes mellitus. Patient will be placed on sliding scale insulin coverage. 7. DVT prophylaxis with Coumadin on hold due to hematuria teds and sequentials. 8. CODE STATUS: Patient has a MOLST form that states he wants to be a DO NOT RESUSCITATE. Patient has selected a trial of noninvasive ventilation so the patient will not be intubated. Disposition: Patient will be admitted to the medical surgical floor with telemetry for acute kidney injury with hyperkalemia. Patient expected to stay greater than two midnights. Vital Signs Vital Signs Date Time Temp Pulse Resp B/P (MAP) Pulse Ox O2 Delivery O2 Flow Rate FiO2 10/19/20 14:46 98.2 78 18 127/61 98 Laboratory Data Labs 24H Laboratory Tests 2 10/19/20 16:32: Immature Granulocyte % (Auto) 1.9, Neutrophils (%) (Auto) 77.5H, Lymphocytes (%) (Auto) 10.1L, Monocytes (%) (Auto) 9.3H, Eosinophils (%) (Auto) 0.6, Basophils (%) (Auto) 0.6, Neutrophils # (Auto) 9.6H, Lymphocytes # (Auto) 1.3L, Monocytes # (Auto) 1.2H, Eosinophils # (Auto) 0.1, Basophils # (Auto) 0.1, Nucleated Red Blood Cells % (auto) 0.0, Anion Gap 3L, Glomerular Filtration Rate 33.0L, Calcium Level 8.6L, Total Bilirubin 0.2, Direct Bilirubin 0.1, Aspartate Amino Transf (AST/SGOT) 24, Alanine Aminotransferase (ALT/SGPT) 15, Alkaline Phosphatase 71, Total Protein 6.6, Albumin 2.7L, Albumin/Globulin Ratio 0.7, Lipase 105 10/19/20 18:04: CBC/BMP Laboratory Tests 10/19/20 16:32 Home Medications Scheduled Allopurinol (Zyloprim) 300 Mg Tab, 300 MG PO QPM Aspirin (Aspirin EC) 81 Mg Tablet.dr, 81 MG PO QPM Atenolol (Atenolol) 50 Mg Tablet, 50 MG PO DAILY Bisacodyl (Dulcolax) 5 Mg Tab, 10 MG PO QHS Diphenhydramine HCl (Diphenhydramine HCl) 50 Mg Cap, 50 MG PO QHS Docusate Sodium (Stool Softener) 100 Mg Cap, 100 MG PO BID Docusate Sodium (Dok) 100 Mg Capsule, 100 MG PO BID Furosemide (Furosemide) 80 Mg Tablet, 80 MG PO BID@0900,1700 Levofloxacin (Levofloxacin) 750 Mg Tablet, 750 MG PO DAILY@06 Loratadine (Claritin) 10 Mg Capsule, 10 MG PO DAILY Metformin HCl (Metformin HCl) 500 Mg Tab, 500 MG PO BID Metolazone (Metolazone) 5 Mg Tablet, 5 MG PO QPM Multivitamins (Thera M Plus Tablet) 1 Tab Tab, 1 TAB PO DAILY Pantoprazole Sodium (Pantoprazole Sodium) 40 Mg Tablet.dr, 40 MG PO DAILY Potassium Chloride (Potassium Chloride) 20 Meq Tablet.er, 40 MEQ PO DAILY Simvastatin (Zocor) 80 Mg Tablet, 80 MG PO DAILY Terazosin HCl (Terazosin HCl) 5 Mg Cap, 5 MG PO QHS Warfarin Sodium (Warfarin Sodium) 7.5 Mg Tablet, 7.5 MG PO 2XW SUNDAYS/THURSDAYS AT 2200 Warfarin Sodium (Warfarin Sodium) 5 Mg Tablet, 5 MG PO 5XW SAT//SAT/SAT/SAT AT 2200 Scheduled PRN Acetaminophen (Acetaminophen) 500 Mg Tab, 1,000 MG PO Q4H PRN for PAIN Carboxymethylcellulos/Glycerin (Refresh Optive Eye Drops) 15 Ml Drops, 1 DROP OU QID PRN for DRY EYES Nitroglycerin (Nitroglycerin) 0.4 Mg Sub, 0.4 MG SL NITRO PRN for CHEST PAIN Tramadol HCl (Tramadol HCl) 50 Mg Tab, 50 MG PO QID PRN for PAIN Allergies Coded Allergies: No Known Allergies (Unverified , 08/17/20) A-FIB/CHADSVASC A-FIB History Current/History of A-Fib/PAF?: Yes Current PO Anticoag Therapy: Yes IAN KENNEDY DO Oct 19, 2020 19:00
[2020-10-19] MEDS ORDERED: MELA5TAB7 PO (19:20)
[2020-10-19] MEDS ORDERED: DULC10SU2 PR (19:20)
[2020-10-19] MEDS ORDERED: FEVE650S3 PR (19:20)
[2020-10-19] MEDS ORDERED: QC A650T3 PO (19:20)
[2020-10-19] MEDS ORDERED: [UNRECOGNIZED DRUG - CODE] PO (19:20)
[2020-10-19] MEDS ORDERED: POTA10TA17 PO (19:20)
[2020-10-19] MEDS ORDERED: MOM30SS PO (19:20)
[2020-10-19] MEDS ORDERED: ENEMENE PR (19:20)
[2020-10-19] MEDS ORDERED: ALLO300T2 PO (19:20)
[2020-10-19] MEDS ORDERED: MECL-136 PO (19:20)
[2020-10-19] MEDS ORDERED: BACITAB PO (19:20)
[2020-10-19] MEDS ORDERED: REFR0.5D8 OU (19:20)
[2020-10-19] MEDS ORDERED: ACET1TAB55 PO (19:20)
[2020-10-19] MEDS ORDERED: MAGN400T3 PO (19:20)
--- NOTE | 2020-10-19 19:23 | ECGEPIP ---
[facility] - ED Test Date: 2020-10-19 Pat Name: VASILIY BROWNE Department: Room: - Gender: Male Disbursement Clerk: EFRA : [id number] Requested By: REBEKA PANIAGUA Order Number: [id number] Reading MD: César Billy Measurements Intervals [place] Rate: 68 P: AL: QRS: -25 QRSD: 84 T: 10 QT: 400 QTc: 425 Interpretive Statements Atrial fibrillation Anterior infarct , age undetermined inferior infarct, age undetermined leftward axis Nonspecific ST T wave changes cw 08/17/[address] T wave changes Electronically Signed on 10-19-2020 19:22:59 EDT by César Billy
[2020-10-19] MEDS ORDERED: HOME MED LIST COMPLETE! XX SCH (19:25)
[2020-10-19] MEDS ORDERED: ACETAMINOPHEN TAB 650MG DOSE (2X325MG) PO ONE (20:50)
[2020-10-19] MEDS: HumaLOG INSULIN (NovoLOG) PER UNIT SC SCH (21:00)
[2020-10-19 22:55] VITALS: BP 119/57
[2020-10-19 23:47] LABS: HEMATOCRIT 33.1 % (42.0-52.0); HEMOGLOBIN 10.2 g/dl (13.5-17.5); MEAN CORPUSCULAR HEMOGLOBIN 34.5 pg (27.0-33.0); MEAN CORPUSCULAR HGB CONC 30.8 g/dl (32.0-36.5); MEAN CORPUSCULAR VOLUME 111.8 fl (80.0-96.0); PLATELET COUNT, AUTOMATED 211 10^3/uL (150-450); RED BLOOD COUNT 2.96 10^6/uL (4.30-6.10); WHITE BLOOD COUNT 10.6 10^3/uL (4.0-10.0)
[2020-10-20 00:03] LABS: INR 4.3; PROTHROMBIN TIME 41.4 SECONDS (12.7-14.5)
[2020-10-20 00:29] LABS: CALCIUM LEVEL 8.5 MG/DL (8.8-10.2); CREATININE FOR GFR 1.76 MG/DL (0.70-1.30); GLOMERULAR FILTRATION RATE 39.4 (>35); POTASSIUM SERUM 4.8 MEQ/L (3.5-5.1)
[2020-10-20] MEDS: NS 1,000 ML IV SCH (00:33)
[2020-10-20 06:00] VITALS: BP 123/66
[2020-10-20] MEDS ORDERED: BISACODYL 10 MG SUPP PR PRN (07:05)
[2020-10-20] MEDS ORDERED: FLEET ENEMA PR PRN (07:05)
[2020-10-20] MEDS ORDERED: MOM 30ML SUSPENSION UDC PO PRN (07:05)
[2020-10-20] MEDS ORDERED: MECLIZINE 12.5 MG TAB PO PRN (07:05)
[2020-10-20 07:07] LABS: HEMATOCRIT 33.5 % (42.0-52.0); HEMOGLOBIN 10.2 g/dl (13.5-17.5); MEAN CORPUSCULAR HGB CONC 30.4 g/dl (32.0-36.5); MEAN CORPUSCULAR VOLUME 111.7 fl (80.0-96.0); PLATELET COUNT, AUTOMATED 209 10^3/uL (150-450); WHITE BLOOD COUNT 9.4 10^3/uL (4.0-10.0)
[2020-10-20 07:20] LABS: INR 4.11
[2020-10-20 07:22] LABS: PARTIAL THROMBOPLASTIN TIME 76.7 SECONDS (25.9-37.0)
[2020-10-20 07:32] LABS: CALCIUM LEVEL 8.6 MG/DL (8.8-10.2); CREATININE FOR GFR 1.51 MG/DL (0.70-1.30); MAGNESIUM LEVEL 2.1 MG/DL (1.8-2.4); POTASSIUM SERUM 4.4 MEQ/L (3.5-5.1)
[2020-10-20] MEDS ORDERED: POLYVINYL ALCOHOL OPHTH SOLN 15 ML(LIQUITEARS) OU PRN (07:35)
[2020-10-20] MEDS ORDERED: ASPIRIN 81MG ENTERIC TABLET PO SCH (09:00)
[2020-10-20] MEDS ORDERED: PHYTONADIONE 5 MG TAB PO ONE (09:00)
[2020-10-20] MEDS: allopurinoL 300 MG TAB PO SCH (10:19)
[2020-10-20] MEDS: ACETAMINOPHEN 650MG ER TAB (TYLENOL ARTHRITIS) PO SCH ×2 (10:19→23:01)
[2020-10-20] MEDS: MAGNESIUM OXIDE 400MG TAB (MAG-OX) PO SCH (10:25)
[2020-10-20] MEDS: MULTIVITAMINS/MINERALS THERAP 1 TAB PO SCH (10:25)
[2020-10-20] MEDS: atenoloL 50 MG TAB PO SCH (10:25)
[2020-10-20] MEDS: DOCUSATE SODIUM 100MG CAPSULE PO SCH ×2 (10:25→23:02)
[2020-10-20] MEDS: HumaLOG INSULIN (NovoLOG) PER UNIT SC SCH ×4 (10:26→22:56)
[2020-10-20] MEDS: LORATADINE 10 MG TAB PO SCH (10:26)
[2020-10-20] MEDS: LACTOBACILLUS ACIDOPHILUS CAP (BACID) PO SCH ×3 (10:29→17:37)
[2020-10-20 14:00] VITALS: BP 111/55
--- NOTE | 2020-10-20 15:33 | IPNPDOC ---
Text Note Date of Service The patient was seen on 10/20/20. NOTE Subjective: Patient 85-year-old male who presented to the emergency department with a chief complaint of an abdominal mass. Patient was found to have a very distended bladder which a Agee catheter was placed and drained 2 L of urine out. Patient started having hematuria which was thought to be secondary to difficult catheterization. Patient Agee clotted off last night had to be replaced. Patient is feeling better today. Patient's INR was supratherapeutic today. Review of systems: General: Patient denies fevers HEENT: Patient denies headaches Cardiovascular: Patient denies chest pain Respiratory: Patient denies shortness of breath, cough GI: Patient denies abdominal pain, nausea, vomiting, diarrhea Extremities: Patient denies swelling or pain in extremities Neurological: Patient denies numbness or tingling in legs Physical exam: Vitals: See below General: Alert and oriented male patient who was laying in bed when I walked in. Patient did not appear to be in any acute distress. HEENT: Normocephalic, atraumatic, moist mucous membranes. Neck: No lymphadenopathy or thyromegaly Cardiac: Regular rate and rhythm, no murmurs, normal S1, normal S2 Pulm: Clear to auscultation bilaterally. No wheezes, rhonchi, rales Abd: Nondistended, nontender to palpation, normal bowel sounds, Agee bag showed red urine. Ext: No edema bilateral lower extremities Labs: See below Imaging: No new imaging has been performed Assessment/plan: 85-year-old male who presented with abdominal mass found to have markedly distended bladder causing obstructive uropathy leading to acute kidney injury and hyperkalemia. 1. Acute kidney injury. Patient's creatinine has continued to improve. Patient received 2 L of IV fluid at 100 cc/h. Due to the patient's history of possible heart failure, I do not want to fluid overload him. We will continue to follow the patient's kidney function as he is hospitalized. 2. Hyperkalemia, resolved. Now the patient's obstruction is resolved, the patient's potassium has returned into the normal range. 3. Hematuria. This is most likely secondary to patient's traumatic catheterization. Patient continues to have blood in his Agee. Urology has been consulted for the need for possible three-way catheter with continuous bladder irrigation. Patient's INR was supratherapeutic and the patient was given vitamin K today. 4. Supratherapeutic INR. Patient's INR was 4.11. Patient was given vitamin K due to the nature of the patient's bleeding being nonlife-threatening as H&H is stable. We will recheck INR tomorrow. 5. Chronic atrial fibrillation. Coumadin is being held at this time. 6. Hypertension. Continue patient's home medications. 7. Diabetes mellitus. Sliding scale insulin coverage. DVT Prophylaxis: Teds and sequentials Disposition: Pending improvement in hematuria and kidney function VS,Fishbone, I+O VS, Fishbone, I+O Laboratory Tests 10/19/20 16:32 10/19/20 17:29 10/19/20 23:41 10/20/20 06:37 Vital Signs Date Time Temp Pulse Resp B/P (MAP) Pulse Ox O2 Delivery O2 Flow Rate FiO2 10/20/20 14:00 97.9 65 22 111/55 (73) 90 Nasal Cannula 2.0 I&O- Last 24 Hours up to 6 AM 10/20/20 06:00 Intake Total 1200 ml Output Total 3150 ml Balance -1950 ml IAN KENNEDY DO Oct 20, 2020 15:33
--- NOTE | 2020-10-20 15:56 | SMCUROLCON ---
Urology Consultation General Date of Consultation 10/20/20 Reason For Consultation asked to see re gross hematuria and retention History of Present Illness 85-year-old white male. Presented with abdominal distention. Was found to be in retention. Catheter placed. 2 L drained. After catheterization gross hematuria started. History of prostate cancer status post radiation. CT reviewed. Distended bladder. Prostate and seminal vesicles not seen. No hydronephrosis. No stones. Creatinine at presentation 2.05. Now 1.51. White count at presentation 12.4. Urine culture came back negative. Supratherapeutic INR. Patient on Coumadin. Past Medical History Medical History Atrial fibrillation, hypertension, type 2 diabetes, gout, heart failure, wound right knee, history of prostate cancer treated with radiation (patient denies prostatectomy) Surgical Hstory Bilateral knee replacement, left hip replacement, bilateral ulnar release surge Jacquelin morse Family History Family History Mother diabetes, father heart attack, sister diabetes Social History Social History Quit smoking in the 60s, currently does not drink though he did in the past, Medications Current Medications Current Medications Medications (Trade) Dose Ordered Sig/Shun Route PRN Reason Start Time Stop Time Status Last Admin Dose Admin Acetaminophen (Tylenol Arthritis Er) 650 mg BID PO 10/20/20 09:00 10/20/20 10:19 Allopurinol (Zyloprim) 300 mg DAILY PO 10/20/20 09:00 10/20/20 10:19 Artificial Tears (Akwa Tears) 1 drop QIDP PRN OU DRY EYES 10/20/20 07:35 Aspirin (Ecotrin) 81 mg DAILY PO 10/20/20 09:00 10/20/20 10:19 Atenolol (Tenormin) 50 mg DAILY PO 10/20/20 09:00 10/20/20 10:25 Bisacodyl (Dulcolax Suppository) 10 mg DAILY PRN ND CONSTIPATION 10/20/20 07:05 Dextrose (Dextrose 50%) 25 ml ASDIRECTED PRN IV SEE LABEL COMMENTS 10/19/20 19:00 Docusate Sodium (Colace) 100 mg BID PO 10/20/20 09:00 10/20/20 10:25 Glucagon (Glucagon) 1 mg ASDIRECTED PRN SC SEE LABEL COMMENTS 10/19/20 19:00 Glucose (Glucose) 16 GM ASDIRECTED PRN PO SEE LABEL COMMENTS 10/19/20 19:00 Home Med (Home Med List Complete!) ASDIRECTED XX 10/19/20 19:25 10/19/20 19:22 DC Insulin Human Lispro (HumaLOG INSULIN) SEE PROTOCOL TABLE AC SC 10/20/20 07:30 10/20/20 12:38 Insulin Human Lispro (HumaLOG INSULIN) SEE PROTOCOL TABLE QHS SC 10/19/20 21:00 Lactobacillus Acidophilus (Bacid) 1 ea WM PO 10/20/20 08:00 10/20/20 12:37 Loratadine (Claritin) 10 mg DAILY PO 10/20/20 09:00 10/20/20 10:26 Magnesium Hydroxide (Milk Of Magnesia) 10 ml DAILY PRN PO CONSTIPATION 10/20/20 07:05 Magnesium Oxide (Mag-Ox) 400 mg DAILY PO 10/20/20 09:00 10/20/20 10:25 Meclizine HCl (Antivert) 12.5 mg Q8H PRN PO VERTIGO/DIZZINESS 10/20/20 07:05 Multivitamins (Theragram-M) 1 tab DAILY PO 10/20/20 09:00 10/20/20 10:25 Simvastatin (Zocor) 80 mg QHS PO 10/20/20 21:00 Sodium Biphosphate/ Sodium Phosphate (Fleet Enema) 1 ea DAILY PRN ND CONSTIPATION 10/20/20 07:05 Sodium Chloride 1,000 ml @ 100 mls/hr Q10H IV 10/19/20 15:45 10/20/20 00:49 DC 10/19/20 15:45 Sodium Chloride 1,000 ml @ 100 mls/hr Q10H IV 10/19/20 18:30 10/20/20 14:29 DC 10/20/20 00:33 Terazosin HCl (Hytrin) 5 mg QHS PO 10/20/20 21:00 Allergies Allergies: Coded Allergies: No Known Allergies (Unverified , 08/17/20) Review of Systems General: Denies: Chills Constitutional: Denies: Fever Eyes: Denies: Vision change ENT: Denies: Head Aches Skin: Denies: Rash Pulmonary: Denies: Cough Cardiovascular: Denies Chest Pain Gastrointestinal: Denies: Nausea, Vomiting Genitourinary: Reports: Frequency Hematologic: Denies: Bruising Endocrine: Denies: Polydipsia Musculoskeletal: Denies: Neck Pain Neurological: Reports: Weakness Psych: Reports: Mood Normal Physical Examination General Exam: Alert, Cooperative EYE EXAM: PERRLA ENT EXAM: Mucous membr. moist/pink Neck Exam: Supple Chest Exam: Clear to auscultation Heart Exam: Rate Normal Abdomen Exam: Soft; No: Tenderness Male Exam: Normal Genital Exam Extremity Exam: Other (Wound with dressing right knee) Skin Exam: Nl turgor and temperature Neuro Exam: Normal Speech Psych Exam: Mood NL Vital Signs/I&O Vital Signs Date Time Temp Pulse Resp B/P (MAP) Pulse Ox O2 Delivery O2 Flow Rate FiO2 10/20/20 14:00 97.9 65 22 111/55 (73) 90 Nasal Cannula 2.0 I&O- Last 24 Hours up to 6 AM 10/20/20 06:00 Intake Total 1200 ml Output Total 3150 ml Balance -1950 ml Laboratory Data 24H Labs Laboratory Tests 2 10/19/20 16:32: Immature Granulocyte % (Auto) 1.9, Neutrophils (%) (Auto) 77.5H, Lymphocytes (%) (Auto) 10.1L, Monocytes (%) (Auto) 9.3H, Eosinophils (%) (Auto) 0.6, Basophils (%) (Auto) 0.6, Neutrophils # (Auto) 9.6H, Lymphocytes # (Auto) 1.3L, Monocytes # (Auto) 1.2H, Eosinophils # (Auto) 0.1, Basophils # (Auto) 0.1, Nucleated Red Blood Cells % (auto) 0.0, Anion Gap 3L, Glomerular Filtration Rate 33.0L, Calcium Level 8.6L, Total Bilirubin 0.2, Direct Bilirubin 0.1, Aspartate Amino Transf (AST/SGOT) 24, Alanine Aminotransferase (ALT/SGPT) 15, Alkaline Phosphatase 71, Total Protein 6.6, Albumin 2.7L, Albumin/Globulin Ratio 0.7, L ipase 105 10/19/20 18:04: Urine Color YELLOW, Urine Appearance CLEAR, Urine pH 5.0, Urine Specific [place] 1.008, Urine Protein NEGATIVE, Urine Glucose (UA) NEGATIVE, Urine Ketones NEGATIVE, Urine Blood 3+H, Urine Nitrite NEGATIVE, Urine Bilirubin NEGATIVE, Urine Urobilinogen 0.2, Urine Leukocyte Esterase 1+H, Urine WBC (Auto) 9H, Urine RBC (Auto) 21H, Urine Hyaline Casts (Auto) 0, Urine Bacteria (Auto) NEGATIVE, Urine Squamous Epithelial Cells 0, Urine Sperm (Auto) 10/19/20 21:12: Bedside Glucose (Misc Panel) 122H 10/19/20 23:41: Nucleated Red Blood Cells % (auto) 0.0, Anion Gap 3L, Glomerular Filtration Rate 39.4, Calcium Level 8.5L, Prothrombin Time 41.4H, Prothromb Time International Ratio 4.30 10/20/20 06:37: Nucleated Red Blood Cells % (auto) 0.0, Prothrombin Time 40.0H, Prothromb Time International Ratio 4.11, Activated Partial Thromboplast Time 76.7H, Anion Gap 3L, Glomerular Filtration Rate 47.0, Calcium Level 8.6L, Magnesium Level 2.1 10/20/20 11:47: Bedside Glucose (Misc Panel) 163H CBC/BMP Laboratory Tests 10/19/20 16:32 10/19/20 17:29 10/19/20 23:41 10/20/20 06:37 Microbiology Microbiology 10/19/20 Respiratory Virus Panel (PCR) ([facility]) - Final, Complete 10/19/20 Urine Culture, Received Pending Assessment Retention. Catheter now in place. Questionable cause. History of prostate cancer status post radiation. Despite not being able to see the prostate on CT, patient denies prostatectomy. Might have scar tissue in the prostatic urethra secondary to radiation. 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 Needs a local cystoscopy. Catheter should remain. Check PSA. Gross hematuria likely related to rapid decompression of the bladder after catheter placement. 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 As well, INR supratherapeutic at admission. Catheter in place draining bloody urine. Three- way catheter better than 2-way catheter. Correct INR. Local cystoscopy to be done as an outpatient. Acute kidney injury. Secondary to retention. Creatinine improved after catheter placement. Plan pt seen and examined 10/20/20 change 2way to 3way and begin cbi needs catheter because of retention cysto likely as outpt start oral antibiotic d/w pt See assessment above. Assessment entered today October 21, 2020. BETH LORENZO MD Oct 20, 2020 15:56
[2020-10-20 22:00] VITALS: BP 158/79
[2020-10-20] MEDS: SIMVASTATIN 40 MG TAB PO SCH (23:01)
[2020-10-20] MEDS: CEFDINIR 300 MG CAP (OMNICEF) PO SCH (23:02)
[2020-10-20] MEDS: TERAZOSIN 5MG CAPSULE PO SCH (23:39)
[2020-10-21 06:00] VITALS: BP 137/62
[2020-10-21 06:59] LABS: HEMATOCRIT 29.7 % (42.0-52.0); HEMOGLOBIN 9.3 g/dl (13.5-17.5); MEAN CORPUSCULAR HEMOGLOBIN 34.6 pg (27.0-33.0); MEAN CORPUSCULAR HGB CONC 31.3 g/dl (32.0-36.5); MEAN CORPUSCULAR VOLUME 110.4 fl (80.0-96.0); PLATELET COUNT, AUTOMATED 205 10^3/uL (150-450); RED BLOOD COUNT 2.69 10^6/uL (4.30-6.10); WHITE BLOOD COUNT 13.6 10^3/uL (4.0-10.0)
[2020-10-21 07:09] LABS: INR 1.63; PROTHROMBIN TIME 19.7 SECONDS (12.7-14.5)
[2020-10-21 07:23] LABS: CREATININE FOR GFR 1.51 MG/DL (0.70-1.30); MAGNESIUM LEVEL 1.8 MG/DL (1.8-2.4); POTASSIUM SERUM 4.4 MEQ/L (3.5-5.1)
[2020-10-21] MEDS: HumaLOG INSULIN (NovoLOG) PER UNIT SC SCH ×5 (07:30→22:14)
--- NOTE | 2020-10-21 08:03 | IPNPDOC ---
Date Seen The patient was seen on 10/21/20. Progress Note pt seen last night because of poorly functioning 3way catheter I irrigated bladder for quite a while until it was clear of clot elevated inr + radiation cystitis + rapid decompression of distended bladder --> gross hematuria plan is cbi until bleeding abates, leave catheter in, oral antibiotic, start tamsulosin, cysto as an outpt cause of retention probably bph and diabetic bladder though cysto needed to r/o other causes I will see pt later today I spoke with pt's on the phone last night and explained situation thank you [phone] VS, I&O, 24H, Fishbone Vital Signs/I&O Vital Signs Date Time Temp Pulse Resp B/P (MAP) Pulse Ox O2 Delivery O2 Flow Rate FiO2 10/21/20 06:00 97.5 73 15 137/62 (87) 96 Nasal Cannula 2.0 I&O- Last 24 Hours up to 6 AM 10/21/20 06:00 Intake Total 2130 ml Output Total 6750 ml Balance -4620 ml Laboratory Data 24H LABS Laboratory Tests 2 10/20/20 11:47: Bedside Glucose (Misc Panel) 163H 10/20/20 17:17: Bedside Glucose (Misc Panel) 153H 10/20/20 22:54: Bedside Glucose (Misc Panel) 119H 10/21/20 06:34: Nucleated Red Blood Cells % (auto) 0.0, Prothrombin Time 19.7H, Prothromb Time International Ratio 1.63, Anion Gap 3L, Glomerular Filtration Rate 47.0, Calcium Level 8.0L, Magnesium Level 1.8 CBC/BMP Laboratory Tests 10/21/20 06:34 Microbiology Microbiology 10/19/20 Respiratory Virus Panel (PCR) ([facility]) - Final, Complete 10/19/20 Urine Culture, Received Pending BETH LORENZO MD Oct 21, 2020 08:03
[2020-10-21] MEDS: DOCUSATE SODIUM 100MG CAPSULE PO SCH ×2 (08:21→20:34)
[2020-10-21] MEDS: MULTIVITAMINS/MINERALS THERAP 1 TAB PO SCH (08:21)
[2020-10-21] MEDS: LORATADINE 10 MG TAB PO SCH (08:21)
[2020-10-21] MEDS: CEFDINIR 300 MG CAP (OMNICEF) PO SCH ×2 (08:21→20:34)
[2020-10-21] MEDS: allopurinoL 300 MG TAB PO SCH (08:21)
[2020-10-21] MEDS: LACTOBACILLUS ACIDOPHILUS CAP (BACID) PO SCH ×3 (08:21→18:48)
[2020-10-21] MEDS: MAGNESIUM OXIDE 400MG TAB (MAG-OX) PO SCH (08:22)
[2020-10-21] MEDS: ACETAMINOPHEN 650MG ER TAB (TYLENOL ARTHRITIS) PO SCH ×2 (08:22→20:34)
[2020-10-21] MEDS: atenoloL 50 MG TAB PO SCH (08:27)
[2020-10-21] MEDS: NS 1,000 ML IV SCH ×2 (08:41→18:48)
[2020-10-21 14:00] VITALS: BP 112/56
--- NOTE | 2020-10-21 14:59 | IPNPDOC ---
Text Note Date of Service The patient was seen on 10/21/20. NOTE Subjective: Patient is 85-year-old male presented to the emergency department chief complaint of abdominal mass. Patient was found to have a very distended bladder which Agee catheter was placed and drained 2 L of urine. Patient began having hematuria and urology was consulted yesterday and placed a three-way catheter for continuous bladder irrigation. Patient's INR was supratherapeutic and was reversed with vitamin K. Patient's INR is now subtherapeutic. We will hold off on Coumadin as the patient is still having hematuria. Patient's catheter had to be flushed numerous times as it clotted off yesterday. Review of systems: General: Patient denies fevers HEENT: Patient denies headaches Cardiovascular: Patient denies chest pain Respiratory: Patient denies shortness of breath, cough Physical exam: Vitals: See below General: Alert and oriented male patient with nasal cannula oxygen in place was laying in bed when I walked in. Patient not appear to be in acute distress. HEENT: Normocephalic, atraumatic, moist mucous membranes. Neck: No lymphadenopathy or thyromegaly Cardiac: Regular rate and rhythm, no murmurs, normal S1, normal S2 Pulm: Clear to auscultation bilaterally. No wheezes, rhonchi, rales Abd: Nondistended, nontender to palpation, normal bowel sounds Ext: No edema bilateral lower extremities Labs: See below Imaging: No new imaging has been performed Assessment/plan: 85-year-old male presented with abdominal mass was found to have markedly distended bladder causing obstructive uropathy leading to acute kidney injury and hyperkalemia. 1. Acute kidney injury. Patient's creatinine did not improve overnight. Patient will receive 2 additional liters of fluid at 100 cc/h. We will recheck the patient's creatinine in the morning. Patient's acute kidney injury is most likely secondary to the obstructive uropathy which is now resolved. 2. Hyperkalemia, resolved. Patient's obstruction is now resolved. Patient's potassium is back in the normal range. 3. Hematuria. Urology was consulted and placed a three-way catheter with continuous bladder irrigation. Patient's INR is now subtherapeutic and we will continue to hold Coumadin. 4. Supratherapeutic INR. Patient's INR was 4.11 yesterday. It is now 1.6 after reversal with vitamin K. Continue to follow patient's H&H and hematuria. 5. Chronic atrial fibrillation. Coumadin being held at this time due to hematuria. 6. Hypertension. Continue patient's home medications. 7. Diabetes mellitus. Sliding scale insulin coverage. DVT Prophylaxis: Teds and sequentials Disposition: Pending improvement in hematuria and kidney function. Patient will be in the hospital through the weekend before possible discharge on Saturday back to [facility] home VS,Makenna, I+O VS, Makenna, I+O Laboratory Tests 10/21/20 06:34 Vital Signs Date Time Temp Pulse Resp B/P (MAP) Pulse Ox O2 Delivery O2 Flow Rate FiO2 10/21/20 08:47 1.0 10/21/20 08:27 82 139/69 10/21/20 06:00 97.5 15 96 Nasal Cannula I&O- Last 24 Hours up to 6 AM 10/21/20 06:00 Intake Total 2130 ml Output Total 6750 ml Balance -4620 ml IAN KENNEDY DO Oct 21, 2020 14:59
[2020-10-21] MEDS: TERAZOSIN 5MG CAPSULE PO SCH (20:34)
[2020-10-21] MEDS: TAMSULOSIN 0.4 MG CAP PO SCH (20:34)
[2020-10-21] MEDS: SIMVASTATIN 40 MG TAB PO SCH (20:36)
[2020-10-21 22:00] VITALS: BP 121/50
[2020-10-22] VITALS (10 sets, daily range): BP systolic 112–140; BP diastolic 58–72
[2020-10-22] MEDS: RAMELTEON 8 MG TAB (ROZEREM) PO PRN ×2 (00:24→22:32)
[2020-10-22 07:19] LABS: HEMATOCRIT 26.4 % (42.0-52.0); HEMOGLOBIN 8.1 g/dl (13.5-17.5); MEAN CORPUSCULAR HEMOGLOBIN 34.2 pg (27.0-33.0); MEAN CORPUSCULAR HGB CONC 30.7 g/dl (32.0-36.5); MEAN CORPUSCULAR VOLUME 111.4 fl (80.0-96.0); PLATELET COUNT, AUTOMATED 185 10^3/uL (150-450); RED BLOOD COUNT 2.37 10^6/uL (4.30-6.10); WHITE BLOOD COUNT 10.7 10^3/uL (4.0-10.0)
[2020-10-22 07:30] LABS: INR 1.14
[2020-10-22 07:43] LABS: BLOOD UREA NITROGEN 37 MG/DL (7-18); CALCIUM LEVEL 8.1 MG/DL (8.8-10.2); CARBON DIOXIDE LEVEL 32 MEQ/L (21-32); CHLORIDE LEVEL 107 MEQ/L (98-107); CREATININE FOR GFR 1.11 MG/DL (0.70-1.30); GLOMERULAR FILTRATION RATE > 60.0 (>35); GLUCOSE, FASTING 145 MG/DL (70-100); MAGNESIUM LEVEL 1.8 MG/DL (1.8-2.4); SODIUM LEVEL 140 MEQ/L (136-145)
[2020-10-22] MEDS: HumaLOG INSULIN (NovoLOG) PER UNIT SC SCH ×4 (09:52→21:00)
[2020-10-22] MEDS: PANTOPRAZOLE 40MG TAB (PROTONIX) PO SCH (09:53)
[2020-10-22] MEDS: MAGNESIUM OXIDE 400MG TAB (MAG-OX) PO SCH (09:53)
[2020-10-22] MEDS: LORATADINE 10 MG TAB PO SCH (09:53)
[2020-10-22] MEDS: DOCUSATE SODIUM 100MG CAPSULE PO SCH ×2 (09:53→21:51)
[2020-10-22] MEDS: CEFDINIR 300 MG CAP (OMNICEF) PO SCH ×2 (09:53→21:50)
[2020-10-22] MEDS: ACETAMINOPHEN 650MG ER TAB (TYLENOL ARTHRITIS) PO SCH ×2 (09:53→22:19)
[2020-10-22] MEDS: allopurinoL 300 MG TAB PO SCH (09:53)
[2020-10-22] MEDS: LACTOBACILLUS ACIDOPHILUS CAP (BACID) PO SCH ×3 (09:53→17:08)
[2020-10-22] MEDS: MULTIVITAMINS/MINERALS THERAP 1 TAB PO SCH (09:53)
[2020-10-22] MEDS: atenoloL 50 MG TAB PO SCH (09:56)
[2020-10-22 12:21] LABS: HEMATOCRIT 25.1 % (42.0-52.0); HEMOGLOBIN 7.9 g/dl (13.5-17.5); MEAN CORPUSCULAR HEMOGLOBIN 35.1 pg (27.0-33.0); MEAN CORPUSCULAR HGB CONC 31.5 g/dl (32.0-36.5); MEAN CORPUSCULAR VOLUME 111.6 fl (80.0-96.0); PLATELET COUNT, AUTOMATED 181 10^3/uL (150-450); RED BLOOD COUNT 2.25 10^6/uL (4.30-6.10); WHITE BLOOD COUNT 10.1 10^3/uL (4.0-10.0)
--- NOTE | 2020-10-22 13:34 | IPNPDOC ---
Text Note Date of Service The patient was seen on 10/22/20. NOTE I was called this morning by Dr. Herrera since Dr. Baird had seen Young jeffrey in consultation on 10/20/20 and then again in the hospital on 10/21/20. The patient came in in urinary retention and a Agee catheter was placed. He had 2 Liters of urine in his bladder and gross hematuria so he was changed to continuous bladder irrigation. At the time he was found to have a very elevated INR on Coumadin and was supratherapeutic on admission. He did get vitamin K and his INR today is finally back to normal. He did have quite a lot of clots yesterday and overnight which needed to be irrigated but today I irrigated and his urine was light red. He does have a history of prostate cancer and radiation and the prostate is not well visualized on the CT scan. If he continues to have clot retention I will plan on bringing him to the operating room for cystoscopy, clot irrigation, and fulguration and anything else that we see abnormal. At this point though he did eat this morning and his urine is now clear on wide-open CBI without any clots in the bladder. His H&H has been dropping slowly every day starting at a hemoglobin of 10.2 down to 9.3, 8.1 and now 7.9. He came in with acute kidney injury and his creatinine was originally 2.1 but has come down to 1.18. Physical exam: The patient was comfortably resting in the hospital bed. He was alert and oriented 3 in no apparent distress. His heart was regular and his lungs were clear. His abdomen was nondistended and nontender. His extremities showed no cyanosis clubbing or edema. Impression: -Urinary retention found to have 2 L in his bladder with gross hematuria when this was emptied but with an INR of 4.3 at the time now back down to normal still with gross hematuria and clots overnight despite CBI -History of prostate cancer status post radiation therapy -Acute kidney injury now with his creatinine back to normal at 15 over 1.17 and most likely this was secondary to obstructive uropathy -Chronic A. fib on Coumadin, diabetes, original hyperkalemia now resolved Plan: -Continue continuous bladder irrigation and since his H&H has been drifting down so slowly and right now I'm not appreciating significant bleeding and his INR is finally normal I would probably wait 24 more hours but if he continues to bleed then he may need cystoscopy with clot irrigation and possible fulguration in the operating room. VS,Makenna, I+O VS, Makenna, I+O Laboratory Tests 10/22/20 06:59 10/22/20 12:07 Vital Signs Date Time Temp Pulse Resp B/P (MAP) Pulse Ox O2 Delivery O2 Flow Rate FiO2 10/22/20 09:56 74 124/58 10/22/20 06:00 97.2 18 99 Nasal Cannula 2.0 I&O- Last 24 Hours up to 6 AM 10/22/20 05:59 Intake Total 3620 ml Output Total 08118 ml Balance -7505 ml BRANDIN ARELLANO MD Oct 22, 2020 13:34
--- NOTE | 2020-10-22 14:32 | IPNPDOC ---
Text Note Date of Service The patient was seen on 10/22/20. NOTE Subjective: Patient is an 85-year-old male present to the emergency department with a chief complaint of abdominal mass was found to have a very distended bladder which Agee catheter was placed and drained 2 L urine. Patient began developing hematuria and urology was consulted and placed a three-way catheter for continuous bladder irrigation. Patient's INR was supratherapeutic initially and was reversed with vitamin K. Patient is feeling much more tired today than he has the past few days. Patient's catheter does have been flushed numerous times as it has been clotting off. Patient denies any pain except when the catheter gets clogged up and is otherwise feeling well except for his increased fatigue. Review of systems: General: Patient denies fevers HEENT: Patient denies headaches Cardiovascular: Patient denies chest pain Respiratory: Patient denies shortness of breath, cough Physical exam: Vitals: See below General: Alert and oriented male patient who was laying in bed when I walked in the room. Patient appeared more fatigued than the past few days. Patient did not appear to be in acute distress. HEENT: Normocephalic, atraumatic, moist mucous membranes. Neck: No lymphadenopathy or thyromegaly Cardiac: Regular rate and rhythm, no murmurs, normal S1, normal S2 Pulm: Clear to auscultation bilaterally. No wheezes, rhonchi, rales Abd: Nondistended, nontender to palpation, normal bowel sounds, Agee bag continues to show red fluid with small clots in it. Ext: No edema bilateral lower extremities Labs: See below Imaging: No new imaging has been performed Assessment/plan: 85-year-old male presented with abdominal mass found to have markedly distended bladder and obstructive uropathy leading to acute kidney injury hyperkalemia who was found to also have hematuria 1. Acute kidney injury. Patient's creatinine is now improved back down to the normal range. We will continue to monitor. 2. Hyperkalemia, resolved. Patient's obstruction now resolved. Patient's potassium is back in the normal range and we may need to supplement if the p atient's potassium level drops. 3. Hematuria. Patient has been on continuous bladder irrigation and is having issues with clotting. Patient continues to bleed. Urology saw the patient today and stated that we will give 24 hours of continuous bladder irrigation and if he is still bleeding tomorrow, patient will be brought to the OR. Patient will be made n.p.o. after midnight. 4. Symptomatic anemia. Patient appears much more fatigued and tired today. Patient's hemoglobin is dropped from 10.7 on admission to 7.9 today. This drop is happened over 3 days. Patient will be transfused 2 units of blood. Patient has been consented for blood. 5. Supratherapeutic INR. Patient's INR is now within the normal range after vitamin K reversal. Continue to hold patient's warfarin. 6. Chronic atrial fibrillation. Patient has been having bradycardic episodes with pauses. Patient's atenolol be cut in half to 25 mg daily. 7. Hypertension. Patient is on medication. 8. Diabetes mellitus. Continue sliding scale insulin coverage DVT Prophylaxis: Teds and sequentials Disposition: Pending proven hematuria. Patient will be in the hospital through at least the weekend before possible discharge on Saturday at the earliest VS,Makenna, I+O VSMakenna I+O Laboratory Tests 10/22/20 06:59 10/22/20 12:07 Vital Signs Date Time Temp Pulse Resp B/P (MAP) Pulse Ox O2 Delivery O2 Flow Rate FiO2 10/22/20 13:55 98.1 64 18 120/58 (78) 100 Nasal Cannula 10/22/20 06:00 2.0 I&O- Last 24 Hours up to 6 AM 10/22/20 06:00 Intake Total 3620 ml Output Total 8225 ml Balance -4605 ml IAN KENNEDY DO Oct 22, 2020 14:32
--- NOTE | 2020-10-22 16:05 | IPNPDOC ---
Date Seen The patient was seen on 10/21/20. Progress Note I saw pt yesterday evening about 5pm I hand irrigated his bladder because I was told the catheter was plugging with clot despite cbi before irrigation everything looked fine - cbi running and drainage clear I hand irrigated vigorously with a copious amount and pulled back only a few small clots I restarted cbi at a slow rate and again everything looked fine I anticipated no need to go to the OR plan was stop cbi when no longer needed, discharge home with catheter and outpt cysto I had a long talk with the pt and his thank you [phone] VS, I&O, 24H, Fishbone Vital Signs/I&O Vital Signs Date Time Temp Pulse Resp B/P (MAP) Pulse Ox O2 Delivery O2 Flow Rate FiO2 10/22/20 15:30 97.8 62 20 119/59 Nasal Cannula 2.0 10/22/20 15:12 95 I&O- Last 24 Hours up to 6 AM 10/22/20 06:00 Intake Total 3620 ml Output Total 8225 ml Balance -4605 ml Laboratory Data 24H LABS Laboratory Tests 2 10/21/20 16:40: Bedside Glucose (Misc Panel) 122H 10/21/20 22:12: Bedside Glucose (Misc Panel) 228H 10/22/20 06:59: Nucleated Red Blood Cells % (auto) 0.0, Prothrombin Time 15.0H, Prothromb Time International Ratio 1.14, Anion Gap 1L, Glomerular Filtration Rate > 60.0, Calcium Level 8.1L, Magnesium Level 1.8 10/22/20 11:52: Bedside Glucose (Misc Panel) 184H 10/22/20 12:07: Nucleated Red Blood Cells % (auto) 0.0 CBC/BMP Laboratory Tests 10/22/20 06:59 10/22/20 12:07 Microbiology Microbiology 10/19/20 Respiratory Virus Panel (PCR) ([facility]) - Final, Complete 10/19/20 Urine Culture - Final, Complete BETH LORENZO MD Oct 22, 2020 16:05
[2020-10-22] MEDS: SIMVASTATIN 40 MG TAB PO SCH (21:51)
[2020-10-22] MEDS: TAMSULOSIN 0.4 MG CAP PO SCH (21:51)
[2020-10-22] MEDS: TERAZOSIN 5MG CAPSULE PO SCH (21:51)
[2020-10-23] VITALS: BP 133/58
[2020-10-23 04:00] VITALS: BP 159/65
[2020-10-23 05:40] LABS: HEMATOCRIT 31.5 % (42.0-52.0); HEMOGLOBIN 9.9 g/dl (13.5-17.5); MEAN CORPUSCULAR HEMOGLOBIN 33.3 pg (27.0-33.0); MEAN CORPUSCULAR HGB CONC 31.4 g/dl (32.0-36.5); MEAN CORPUSCULAR VOLUME 106.1 fl (80.0-96.0); PLATELET COUNT, AUTOMATED 181 10^3/uL (150-450); RED BLOOD COUNT 2.97 10^6/uL (4.30-6.10); WHITE BLOOD COUNT 11.3 10^3/uL (4.0-10.0)
[2020-10-23 05:51] LABS: INR 1.14
[2020-10-23 06:04] LABS: BLOOD UREA NITROGEN 29 MG/DL (7-18); CALCIUM LEVEL 8.3 MG/DL (8.8-10.2); CARBON DIOXIDE LEVEL 31 MEQ/L (21-32); CHLORIDE LEVEL 111 MEQ/L (98-107); CREATININE FOR GFR 0.84 MG/DL (0.70-1.30); GLOMERULAR FILTRATION RATE > 60.0 (>35); GLUCOSE, FASTING 137 MG/DL (70-100); MAGNESIUM LEVEL 1.7 MG/DL (1.8-2.4); POTASSIUM SERUM 3.9 MEQ/L (3.5-5.1); SODIUM LEVEL 145 MEQ/L (136-145)
[2020-10-23] MEDS: HumaLOG INSULIN (NovoLOG) PER UNIT SC SCH ×4 (07:30→21:00)
[2020-10-23] MEDS: LACTOBACILLUS ACIDOPHILUS CAP (BACID) PO SCH ×3 (08:00→18:11)
[2020-10-23 08:16] VITALS: BP 143/66
[2020-10-23] MEDS: DOCUSATE SODIUM 100MG CAPSULE PO SCH ×2 (08:50→21:15)
[2020-10-23] MEDS: LORATADINE 10 MG TAB PO SCH (08:50)
[2020-10-23] MEDS: ACETAMINOPHEN 650MG ER TAB (TYLENOL ARTHRITIS) PO SCH ×3 (08:51→21:16)
[2020-10-23] MEDS: PANTOPRAZOLE 40MG TAB (PROTONIX) PO SCH (08:51)
[2020-10-23] MEDS: atenoloL 25 MG TAB PO SCH (08:51)
[2020-10-23] MEDS: MULTIVITAMINS/MINERALS THERAP 1 TAB PO SCH (08:51)
[2020-10-23] MEDS: allopurinoL 300 MG TAB PO SCH (08:51)
[2020-10-23] MEDS: CEFDINIR 300 MG CAP (OMNICEF) PO SCH ×2 (11:36→21:16)
[2020-10-23] MEDS: MAGNESIUM OXIDE 400MG TAB (MAG-OX) PO SCH (11:36)
--- NOTE | 2020-10-23 16:19 | IPNPDOC ---
Text Note Date of Service The patient was seen on 10/23/20. NOTE Subjective: Patient is an 85-year-old male presented emergency department chief complaint of abdominal masses found to have a very distended bladder. Agee catheter was placed which drained 2 L. Patient has been having hematuria which has slowed down overnight. Patient's continuous bladder irrigation has been decreased. Patient was still having some very mild bleeding this morning. Patient received 2 units of blood over the day yesterday and states he is feeling slightly better. Patient is otherwise feeling well today. Review of systems: General: Patient denies fevers HEENT: Patient denies headaches Cardiovascular: Patient denies chest pain Respiratory: Patient denies shortness of breath, cough GI: Patient denies abdominal pain, nausea, vomiting, diarrhea Physical exam: Vitals: See below General: Alert and oriented male patient with nasal cannula oxygen in place who was laying in bed when I walked in. Patient not appear to be in any acute distress. HEENT: Normocephalic, atraumatic, moist mucous membranes. Neck: No lymphadenopathy or thyromegaly Cardiac: Regular rate and rhythm, no murmurs, normal S1, normal S2 Pulm: Clear to auscultation bilaterally. No wheezes, rhonchi, rales Abd: Nondistended, nontender to palpation, normal bowel sounds, Agee bag showed some very light pink fluid in the bag no new imaging has been performed Ext: No edema bilateral lower extremities Labs: See below Imaging: No new imaging was performed Assessment/plan: 85-year-old male presented with abdominal masses found to have markedly distended bladder and obstructive uropathy leading to acute kidney injury, hyperkalemia was also found to have hematuria 1. Acute kidney injury. Patient's creatinine has now improved back down to normal range we will continue monitoring. 2. Hyperkalemia. This is resolved. Continue to monitor. 3. Hematuria. Patient's continuous bladder irrigation has slowed down. Patient's INR is now back to within the normal range. Patient will not be taken to the OR today as the bleeding has slowed down. We will continue to monitor. 4. Symptomatic anemia. Patient appeared much more fatigued yesterday. Patient received 2 units of blood and is feeling better today. Patient's hemoglobin is now back to close to where he was before his admission. 5. Supratherapeutic INR. INR is back in the normal range. Continue to hold Coumadin until hematuria is resolved. 6. Chronic atrial fibrillation. Patient had been having bradycardia yesterday, atenolol cut in half to 25 mg daily. Bradycardia has resolved. 7. Hypertension. Patient is on home medication. 8. Diabetes mellitus. Continue sliding scale with hypoglycemic protocol. DVT Prophylaxis: Teds and sequentials Disposition: Pending improvement in hematuria. VS,Fishbone, I+O VS, Fishbone, I+O Laboratory Tests 10/23/20 05:12 Vital Signs Date Time Temp Pulse Resp B/P (MAP) Pulse Ox O2 Delivery O2 Flow Rate FiO2 10/23/20 16:00 2.0 10/23/20 08:16 98.2 83 20 143/66 (91) 100 Nasal Cannula I&O- Last 24 Hours up to 6 AM 10/23/20 06:00 Intake Total 2180 ml Output Total 4680 ml Balance -2500 ml IAN KENNEDY DO Oct 23, 2020 16:18
[2020-10-23 16:28] VITALS: BP 135/64
--- NOTE | 2020-10-23 18:32 | IPNPDOC ---
Text Note Date of Service The patient was seen on 10/23/20. NOTE Patient is now on very low continuous bladder irrigation with rust colored urine and only some very small clots overnight but no problems all day long with an INR now back into normal range. His urine cultures come back negative for infection and his H&H is now 9.9/31.5 but after 2 units of packed red blood cells. He has no complaints except that he would like to be able to go home and we discussed that the Agee catheter should be able to be removed tomorrow as long as there is no significant clots overnight. Physical exam: Well-developed well-nourished gentleman lying in the hospital bed in no apparent respiratory distress. He is alert and oriented x3. His abdomen is soft and nontender. His urine is rust colored on a very low CBI. His extremities show no cyanosis clubbing or edema. Impression -Patient admitted with urinary retention and found to have 2 L of urine in his bladder on 10/19/2020 with gross hematuria afterward -Gross hematuria in a patient with a history of prostate cancer status post radiation therapy Plan: -Plan on stopping CBI and discharging the patient with the Agee catheter because of the large amount of retention he had but we can try a voiding trial in a week or 2 -Patient will require an outpatient cystoscopy -Recommend sending him home on Flomax 0.4 mg if he is not already taking it -Patient did have supratherapeutic INR and this is now back in the normal range and once the hematuria gets better they can restart the Coumadin and just watch this closely VS,Evonnee, I+O VS, Evonnee, I+O Laboratory Tests 10/23/20 05:12 Vital Signs Date Time Temp Pulse Resp B/P (MAP) Pulse Ox O2 Delivery O2 Flow Rate FiO2 10/23/20 16:28 98.0 73 18 135/64 (87) 90 Room Air 10/23/20 16:00 2.0 I&O- Last 24 Hours up to 6 AM 10/23/20 06:00 Intake Total 2180 ml Output Total 4680 ml Balance -2500 ml BRANDIN ARELLANO MD Oct 23, 2020 18:32
[2020-10-23 20:00] VITALS: BP 153/67
[2020-10-23] MEDS: TAMSULOSIN 0.4 MG CAP PO SCH (21:15)
[2020-10-23] MEDS: RAMELTEON 8 MG TAB (ROZEREM) PO PRN (21:15)
[2020-10-23] MEDS: TERAZOSIN 5MG CAPSULE PO SCH (21:16)
[2020-10-23] MEDS: SIMVASTATIN 40 MG TAB PO SCH (21:16)
[2020-10-24 04:00] VITALS: BP 130/60
[2020-10-24 05:58] LABS: HEMATOCRIT 32.7 % (42.0-52.0); HEMOGLOBIN 10.1 g/dl (13.5-17.5); MEAN CORPUSCULAR HEMOGLOBIN 33.3 pg (27.0-33.0); MEAN CORPUSCULAR HGB CONC 30.9 g/dl (32.0-36.5); MEAN CORPUSCULAR VOLUME 107.9 fl (80.0-96.0); PLATELET COUNT, AUTOMATED 203 10^3/uL (150-450); RED BLOOD COUNT 3.03 10^6/uL (4.30-6.10); WHITE BLOOD COUNT 12.1 10^3/uL (4.0-10.0)
[2020-10-24 06:05] LABS: INR 1.09; PROTHROMBIN TIME 14.6 SECONDS (12.7-14.5)
[2020-10-24 06:24] LABS: BLOOD UREA NITROGEN 20 MG/DL (7-18); CALCIUM LEVEL 8.6 MG/DL (8.8-10.2); CARBON DIOXIDE LEVEL 33 MEQ/L (21-32); CHLORIDE LEVEL 109 MEQ/L (98-107); CREATININE FOR GFR 0.67 MG/DL (0.70-1.30); GLOMERULAR FILTRATION RATE > 60.0 (>35); GLUCOSE, FASTING 130 MG/DL (70-100); MAGNESIUM LEVEL 1.7 MG/DL (1.8-2.4); POTASSIUM SERUM 3.9 MEQ/L (3.5-5.1); SODIUM LEVEL 144 MEQ/L (136-145)
[2020-10-24] MEDS: HumaLOG INSULIN (NovoLOG) PER UNIT SC SCH ×2 (07:30→12:00)
[2020-10-24 08:00] VITALS: BP 116/58
[2020-10-24] MEDS: ACETAMINOPHEN 650MG ER TAB (TYLENOL ARTHRITIS) PO SCH (08:56)
[2020-10-24] MEDS: MAGNESIUM OXIDE 400MG TAB (MAG-OX) PO SCH (08:56)
[2020-10-24] MEDS: MULTIVITAMINS/MINERALS THERAP 1 TAB PO SCH (08:56)
[2020-10-24] MEDS: CEFDINIR 300 MG CAP (OMNICEF) PO SCH (08:56)
[2020-10-24] MEDS: LACTOBACILLUS ACIDOPHILUS CAP (BACID) PO SCH ×2 (08:56→12:30)
[2020-10-24] MEDS: allopurinoL 300 MG TAB PO SCH (08:56)
[2020-10-24] MEDS: PANTOPRAZOLE 40MG TAB (PROTONIX) PO SCH (08:57)
[2020-10-24] MEDS: LORATADINE 10 MG TAB PO SCH (08:57)
[2020-10-24] MEDS: DOCUSATE SODIUM 100MG CAPSULE PO SCH (08:57)
[2020-10-24 08:58] VITALS: BP 116/58
[2020-10-24] MEDS: atenoloL 25 MG TAB PO SCH (08:58)
[2020-10-24] MEDS ORDERED: DUTASTERIDE 0.5 MG CAP (AVODART) PO SCH (09:00)
--- NOTE | 2020-10-24 10:06 | IPNPDOC ---
Text Note Date of Service The patient was seen on 10/24/20. NOTE Mr. Sheppard urine is clear today and he has been pretty much off CBI. He had no problems overnight. Because he had 2 L in his bladder I would recommend leaving the Agee catheter for about another week before we try a voiding trial. His urine culture did come back negative from 10/19/20 and his H&H has been stable since he got 2 units of packed red blood cells. He has been on Hytrin at home. Physical exam: Well-developed well-nourished gentleman lying in a hospital bed in no apparent respiratory distress. He is sleepy but alert and oriented 3. His abdomen is soft and nontender. His extremities show no cyanosis clubbing or edema. Plan: -Send him home with the Agee catheter in place and will come into the office for a voiding trial in approximately 1 week -Start Flomax 0.4 mg nightly and DC Hytrin and we will also add Avodart -Patient will require cystoscopy also has an outpatient Makenna JAMES, I+O VSMakenna I+O Laboratory Tests 10/24/20 05:38 Vital Signs Date Time Temp Pulse Resp B/P (MAP) Pulse Ox O2 Delivery O2 Flow Rate FiO2 10/24/20 08:58 82 116/58 10/24/20 08:00 98.5 20 93 Nasal Cannula 2.0 I&O- Last 24 Hours up to 6 AM 10/24/20 06:00 Intake Total 820 ml Output Total 1000 ml Balance -180 ml BRANDIN ARELLANO MD Oct 24, 2020 10:06
[2020-10-24] MEDS ORDERED: AVOD0.5C PO (10:18)
[2020-10-24] MEDS ORDERED: FLOM0.4C39 PO (10:18)
--- NOTE | 2020-10-24 10:40 | DS.PDOC ---
Discharge Summary General Date of Admission Oct 19, 2020 at 18:27 Date of Discharge 10/24/2020 Primary Care Physician: Jr Olson Collins Attending Physician: IAN KENNEDY DO Specialist/Consultants Involve: BETH LORENZO MD Specialist/Consultants Involve Elham Cruz MD, urology Discharge Summary PROCEDURES PERFORMED DURING STAY: None. ADMITTING DIAGNOSES: 1. Acute kidney injury. 2. Hyperkalemia 3. Hematuria 4. Chronic atrial fibrillation 5. Hypertension 6. Diabetes mellitus DISCHARGE DIAGNOSES: 1. Acute kidney injury, resolved. 2. Obstructive uropathy, requiring Agee catheter 3. Hematuria, resolved 4. Supratherapeutic INR status post reversal with vitamin K 5. Chronic atrial fibrillation 6. Diabetes mellitus 7. Symptomatic anemia status post 2 units of packed red blood cells COMPLICATIONS/CHIEF COMPLAINT: Acute Renal Failure,Hyperkalemia. HISTORY OF PRESENT ILLNESS: Patient is an 85-year-old male who presented to the emergency department on 10/19/2020 with chief complaint of an abdominal mass. Patient's states that she noticed a large mass in the patient's lower abdomen that was causing some tenderness the day prior to admission. Patient went to his wound care doctor for his wound on his right knee who recommended the patient come to the emergency department get the mass checked out. Patient was examined by provider at the long-term [facility] who wanted to rule out possible umbilical hernia as a cause of the mass. Patient was sent to the emergency department where a CT scan was performed and showed that the bladder was greatly distended. Patient states that he urinates all the time but it is a small amount. Patient says he has to wear a diaper because of this. Patient had a Agee catheter placed and 2 L of urine was drained out of his bladder. Towards the end of the drainage, the urine started to become bloody. Patient states he is feeling much better. Patient was found to have an acute kidney injury with hyperkalemia with a supratherapeutic INR up on admission. HOSPITAL COURSE: Patient's supratherapeutic INR was reversed with 5 mg of oral vitamin K. Patient's Agee catheter was clotting off to the point where had to be manually irrigated numerous times throughout the first night of his hospitalization. Urology was consulted as the bleeding continued who changed the Patient to a three-way Agee catheter and placed him on continuous bladder irrigation. Patient's INR came back down from 4.3 down to 1.6. Patient did not need any more oral vitamin K. Patient's hemoglobin did drop from 10.8-7.9 and patient was feeling much more fatigued than usual. Patient received 2 units of packed red blood cells and felt better. Patient's acute kidney injury resolved after he received 4 L of normal saline over a period of 3 days. Patient's hyperkalemia quickly resolved once the patient's obstructive uropathy was resolved. Patient saw urology who slowed down the continuous bladder irrigation on 10/23/2020 to a trickle. Patient's bleeding had stopped at that point and he had no acute events overnight on 10/23/2020. On the morning of 10/24/2020, patient's urine was yellow in color and he was no longer on continuous bladder irrigation. Patient will be sent home with an Agee catheter in place as patient will need outpatient follow-up with urology with outpatient cystoscopy. None of the patient's hematuria has resolved, Coumadin can be restarted based on the accepting provider at [facility]. Patient was deemed ready for discharge on 10/24/2020. DISCHARGE MEDICATIONS: Please see below. ALLERGIES: Please see below. PHYSICAL EXAMINATION ON DISCHARGE: VITAL SIGNS: Please see below. General: Alert and oriented male patient who was resting in bed when I walked in the room. Patient did not appear to be in any acute distress. HEENT: Normocephalic, atraumatic, moist mucous membranes. Neck: No lymphadenopathy or thyromegaly Cardiac: Regular rate and rhythm, no murmurs, normal S1, normal S2 Pulm: Clear to auscultation bilaterally. No wheezes, rhonchi, rales Abd: Nondistended, nontender to palpation, normal bowel sounds, Agee bag showed yellow urine with no evidence of blood Ext: No edema bilateral lower extremities LABORATORY DATA: Please see below. IMAGING: CT scan of the abdomen pelvis without contrast was performed on 10/19/2020 is reported to show there is no bowel distention or obstruction. The bladder is markedly distended as interval change. Patient has a history of prostate carcinoma. The prostate cannot be visualized as it could have been an interval prostatectomy or results of beam hardening artifact due to interval placement of left hip arthroplasty. Cholelithiasis without acute cholecystitis. Fractures in the posterior arches of rib 11 and 12 on the right. Fluid collection interposed between the rib fractures and right kidney. This was identified as renal cyst previously. Has change in configuration appears more elongated possibly as a consequence of the rib fractures. Demineralization. No lytic, blastic, or destructive skeletal changes. There are L1 and L3 vertebral body kyphoplasties. There have the obscures visualization of the prostate. Large volume of fecal residue in the rectal and sigmoid colon without bowel obstruction. This is possibly an impaction. PROGNOSIS: Fair ACTIVITY: As tolerated. DIET: 2 g sodium DISCHARGE PLAN: Discharge back to long-term facility DISPOSITION: . DISCHARGE INSTRUCTIONS: 1. Follow-up with your provider at [facility]. 2. Follow-up with urology for outpatient cystoscopy and voiding trial 3. Discussed with your provider about restarting warfarin as hematuria is now resolved. 4. Return to the emergency department if your symptoms worsen ITEMS TO FOLLOWUP ON ON OUTPATIENT: 1. Voiding trial and outpatient cystoscopy. DISCHARGE CONDITION: Stable. TIME SPENT ON DISCHARGE: 35 minutes. Vital Signs/I&Os Vital Signs Date Time Temp Pulse Resp B/P (MAP) Pulse Ox O2 Delivery O2 Flow Rate FiO2 10/24/20 08:58 82 116/58 10/24/20 08:00 98.5 20 93 Nasal Cannula 2.0 I&O- Last 24 Hours up to 6 AM 10/24/20 06:00 Intake Total 820 ml Output Total 1000 ml Balance -180 ml Laboratory Data Labs 24H Laboratory Tests 2 10/23/20 11:34: Bedside Glucose (Misc Panel) 167H 10/23/20 16:49: Bedside Glucose (Misc Panel) 188H 10/23/20 21:27: Bedside Glucose (Misc Panel) 167H 10/24/20 05:38: Nucleated Red Blood Cells % (auto) 0.0, Prothrombin Time 14.6H, Prothromb Time International Ratio 1.09, Anion Gap 2L, Glomerular Filtration Rate > 60.0, Calcium Level 8.6L, Magnesium Level 1.7L CBC/BMP Laboratory Tests 10/24/20 05:38 FSBS Laboratory Tests Test 10/23/20 11:34 10/23/20 16:49 10/23/20 21:27 Range/Units Bedside Glucose (Misc Panel) 167 188 167 83-110 MG/DL Microbiology Microbiology 10/19/20 Respiratory Virus Panel (PCR) (CHASTITY) - Final, Complete 10/19/20 Urine Culture - Final, Complete Discharge Medications Scheduled Acetaminophen (Acetaminophen 8 Hour) 650 Mg Tablet.er, 650 MG PO BID, (Reported) Aspirin (Aspirin EC) 81 Mg Tablet.dr, 81 MG PO DAILY, (Reported) Atenolol (Atenolol) 50 Mg Tablet, 50 MG PO DAILY, (Reported) Docusate Sodium (Stool Softener) 100 Mg Cap, 100 MG PO BID, (Reported) Dutasteride (Avodart) 0.5 Mg Capsule, 0.5 MG PO DAILY L.acidoph/L.bulg/B.bif/S.therm (Bacid Caplet) 1 Each Tablet, 1 TAB PO TID, (Reported) Loratadine (Claritin) 10 Mg Capsule, 10 MG PO DAILY, (Reported) Magnesium Oxide (Magnesium Oxide) 400 Mg Tablet, 400 MG PO DAILY, (Reported) Melatonin (Melatonin) 5 Mg Tablet, 5 MG PO QHS, (Reported) Metformin HCl (Metformin HCl) 500 Mg Tab, 500 MG PO BID, (Reported) Multivitamins (Thera M Plus Tablet) 1 Tab Tab, 1 TAB PO DAILY, (Reported) Pantoprazole Sodium (Pantoprazole Sodium) 40 Mg Tablet.dr, 40 MG PO DAILY, (Reported) Potassium Chloride (Potassium Chloride) 10 Meq Tab.er.prt, 40 MEQ PO BID, (Reported) Simvastatin (Zocor) 80 Mg Tablet, 80 MG PO QHS, (Reported) Tamsulosin HCl (Flomax) 0.4 Mg Capsule, 0.4 MG PO QHS allopurinoL (allopurinoL) 300 Mg Tablet, 300 MG PO DAILY, (Reported) Scheduled PRN Acetaminophen (Acetaminophen) 325 Mg Tablet, 650 MG PO Q6H PRN for MILD PAIN (PS 1-4), (Reported) Acetaminophen (Feverall) 650 Mg Supp.rect, 650 MG NM Q4H PRN for FEVER, (Reported) Bisacodyl (Dulcolax) 10 Mg Supp.rect, 10 MG NM DAILY PRN for CONSTIPATION, (Reported) Carboxymethylcellulose Sodium (Refresh Tears) 15 Ml Drops, 1 DROP OU QID PRN for DRY EYES, (Reported) Guaifen/Dextromethorphan/PE (Vanacof Dm Liquid) 240 Ml Liquid, 10 ML PO QID PRN for COUGH, (Reported) Meclizine HCl (Meclizine HCl) 12.5 Mg Tablet, 12.5 MG PO Q8H PRN for VE RTIGO/DIZZINESS, (Reported) Milk Of Magnesia (Milk of Magnesia) 2,400 Mg/10 Ml Oral.susp, 10 ML PO DAILY PRN for CONSTIPATION, (Reported) Nitroglycerin (Nitroglycerin) 0.4 Mg Sub, 0.4 MG SL NITRO PRN for CHEST PAIN, (Reported) Sodium Phosphate,[place]-Dibasic (Enema) 133 Ml Enema, 1 ZOË NM DAILY PRN for CO NSTIPATION, (Reported) Allergies Coded Allergies: No Known Allergies (Unverified , 08/17/20) IAN KENNEDY DO Oct 24, 2020 10:40
[2020-10-24 12:50] LABS: RSV AMPLIFICATION NEGATIVE (NEGATIVE)
== END 2020-10-24 13:36 | DRG 683 ==
LOC: M ED 14:08 → M ED INP 18:27 → M MSPAV 23:17 → M PCU 10-22 13:49
PROVIDERS: ADMIT Family Medicine; ATTEND Family Medicine
PROC: 30233N1 Transfusion of Nonautologous Red Blood Cells into Peripheral Vein, Percutaneous Approach (ICD-10-PCS; principal; 2020-10-22)
DX: N17.9 Acute kidney failure, unspecified (principal); I48.20 Chronic atrial fibrillation, unspecified; R33.9 Retention of urine, unspecified; N40.0 Benign prostatic hyperplasia without lower urinary tract symptoms; R31.0 Gross hematuria; D64.9 Anemia, unspecified; E87.5 Hyperkalemia; Z79.82 Long term (current) use of aspirin; Z79.899 Other long term (current) drug therapy; Z85.46 Personal history of malignant neoplasm of prostate; M10.9 Gout, unspecified; Z92.3 Personal history of irradiation; E11.9 Type 2 diabetes mellitus without complications; Z96.653 Presence of artificial knee joint, bilateral; Z96.642 Presence of left artificial hip joint

== ENCOUNTER → 2020-10-20 | Outpatient (REF) ==
[~2020-10-20] MED LIST changes: +ALLO300T2 PO; +BACITAB PO; -DOK1CAP4 PO; +DOK1CAP7 PO; +DULC10SU2 PR; +ENEMENE PR; +FEVE650S3 PR; +MAGN400T3 PO; +MECL-136 PO; +MELA5TAB7 PO; +MOM30SS PO; +QC A650T3 PO; +REFR0.5D8 OU; +[UNRECOGNIZED DRUG - CODE] PO
--- NOTE | 2020-10-20 15:46 | SMCUROLCON ---
Urology Consultation General Date of Consultation 10/20/20 Reason For Consultation asked to see re gross hematuria and retention History of Present Illness Found to be in retention. Catheter placed and 2 liters drained. Gross hematuria started after catheter placement. Bladder has been hand irrigated because of bleeding. Ct reviewed. Distended bladder. Prostate is absent. Must have had prostatectomy. Allergies Allergies: Coded Allergies: No Known Allergies (Unverified , 08/17/20) Plan change 2way catheter to 3way catheter and start cbi pt needs a catheter because of retention cystoscopy likely as an outpt d/w pt BETH LORENZO MD Oct 20, 2020 15:46
== END ==
LOC: SKLAB4 10:11
PROVIDERS: ATTEND Internal Medicine
DX: I48.91 Unspecified atrial fibrillation (principal); R42 Dizziness and giddiness; Z53.8 Procedure and treatment not carried out for other reasons

== ENCOUNTER → 2020-10-25 | Outpatient (REF) ==
[~2020-10-25] MED LIST changes: +ATIV1TAB7 PO; +ATRO1OPD SL; +AVOD0.5C PO; +BISA10SU PR; +DOK1CAP4 PO; -DOK1CAP7 PO; +FLOM0.4C39 PO; +HYOS125TA PO; +MORP1SOL SL; +ONDA4TAB6 PO; +SCOP1PAT2 TOP
[2020-10-25 09:33] LABS: INR 1.11; PROTHROMBIN TIME 14.7 SECONDS (12.7-14.5)
== END ==
LOC: SKLAB4 08:00
PROVIDERS: ATTEND Internal Medicine
DX: I48.91 Unspecified atrial fibrillation (principal)

== ENCOUNTER 2020-10-26 08:57 | Inpatient (IN) | payer MEDICARE, OTHER ==
[~2020-10-26] VITALS: Ht 188 cm; Wt 120.0 kg
[~2020-10-26 08:57] MED LIST changes: -ATIV1TAB7 PO; -ATRO1OPD SL; -BISA10SU PR; -HYOS125TA PO; -MORP1SOL SL; -ONDA4TAB6 PO; -SCOP1PAT2 TOP
--- NOTE | 2020-10-26 09:35 | REP ---
INDICATION: altered. COMPARISON: Comparison head CT study is from November 07, 2018.. TECHNIQUE: Helical scanning is acquired. 5 mm axial images were reformatted. Coronal MPR images were generated. FINDINGS: Bone window settings demonstrate an intact bony calvarium. There is no evidence of skull fracture or incidental bony calvarial lesion. The visualized paranasal sinuses appear clear. No intraorbital abnormality is seen. On soft tissue window setting images; the lateral, third, and fourth ventricles are normal in size and position. Allen-white differentiation pattern is normal above and below the tentorium. There are is no evidence of intracranial hemorrhage. No mass, edema, infarction, or midline shift is seen. No extra-axial fluid collection is appreciated. There is vascular calcification noted at the skull base in the distal vertebral and distal internal carotid arteries bilaterally. Small-vessel atherosclerotic changes are seen in the periventricular white matter of the frontal lobes bilaterally. There is mild generalized volume loss. IMPRESSION: Generalized volume loss, vascular calcification and small vessel changes. No acute intracranial abnormality.. <Electronically signed by Alex Lundberg > 10/26/20 0931
--- NOTE | 2020-10-26 09:41 | REP ---
INDICATION: DYSPNEA/COUGH. COMPARISON: 09/06/2020 TECHNIQUE: AP view FINDINGS: AP portable examination of the chest shows pulmonary venous congestion, cardiac enlargement and left pleural effusion. Possible sub pulmonic right effusion.. Consolidation at the left lung base is suspected as well. The lungs are otherwise clear. IMPRESSION: Cardiomegaly. Congestive failure. Possible left lower lobe infiltrate. PA and lateral views are recommended when able. <Electronically signed by Freddie Domingo > 10/26/20 0937
[2020-10-26 10:22] LABS: VENOUS BASE EXCESS 5.7 (-2.0-2.0); VENOUS HCO3 35.4 MEQ/L (23.0-27.0); VENOUS O2 SATURATION 77.1 % (60.0-80.0); VENOUS PARTIAL PRESSURE CO2 83.8 mmHg (38.0-50.0); VENOUS PARTIAL PRESSURE O2 45.2 mmHg (30.0-50.0); VENOUS PH 7.244 UNITS (7.330-7.430); VENOUS STANDARD HCO3 29.2 MEQ/L
[2020-10-26 10:28] LABS: BASO # 0.1 10^3/uL (0.0-0.2); BASO % 0.4 % (0.0-1.0); EOS % 0.1 % (0.0-3.0); HEMOGLOBIN 10.6 g/dl (13.5-17.5); LYMPH # 0.7 10^3/uL (1.5-5.0); LYMPH % 4.4 % (24.0-44.0); MEAN CORPUSCULAR HEMOGLOBIN 32.9 pg (27.0-33.0); MEAN CORPUSCULAR HGB CONC 29.4 g/dl (32.0-36.5); MEAN CORPUSCULAR VOLUME 111.8 fl (80.0-96.0); MONO # 1.1 10^3/uL (0.0-0.8); MONO % 7.4 % (2.0-8.0); NEUTROPHILS # 13.2 10^3/uL (1.5-8.5); NEUTROPHILS % 85.5 % (36.0-66.0); PLATELET COUNT, AUTOMATED 264 10^3/uL (150-450); RED BLOOD COUNT 3.22 10^6/uL (4.30-6.10); WHITE BLOOD COUNT 15.4 10^3/uL (4.0-10.0)
[2020-10-26 11:01] LABS: ALBUMIN 2.5 GM/DL (3.2-5.2); ALT/SGPT 20 U/L (12-78); BILIRUBIN,DIRECT 0.1 MG/DL (0.0-0.2); BILIRUBIN,TOTAL 0.3 MG/DL (0.2-1.0); NT-PRO BNP 3444 PG/ML (<450); THYROID STIMULATING HORMONE 0.648 uIU/ML (0.358-3.740); TOTAL PROTEIN 6.4 GM/DL (6.4-8.2)
[2020-10-26] MEDS ORDERED: LevoFLOXacin IV 750 MG in IV 1 EA IV ONE (11:15)
[2020-10-26] MEDS ORDERED: FUROSEMIDE 20MG/2ML VIAL (J1940) IV ONE (11:15)
[2020-10-26] MEDS ORDERED: PIPERACILLIN/TAZOBACTAM SOD 4.5 GM in D5W MINI-BAG PLUS 50 ML IV ONE (11:15)
[2020-10-26 11:44] LABS: INR 1.22; PROTHROMBIN TIME 15.8 SECONDS (12.7-14.5)
[2020-10-26 12:35] LABS: BLOOD UREA NITROGEN 18 MG/DL (7-18); CALCIUM LEVEL 9.2 MG/DL (8.8-10.2); CARBON DIOXIDE LEVEL 33 MEQ/L (21-32); CHLORIDE LEVEL 107 MEQ/L (98-107); CK-MB VALUE MASS < 1.0 NG/ML (<3.6); CPK CREATINE PHOSPHOKINASE 24 U/L (39-308); CREATININE FOR GFR 0.74 MG/DL (0.70-1.30); GLOMERULAR FILTRATION RATE > 60.0 (>35); GLUCOSE, FASTING 208 MG/DL (70-100); MB/CK RELATIVE INDEX 4.17 (< OR =4); POTASSIUM SERUM 5.2 MEQ/L (3.5-5.1); SODIUM LEVEL 144 MEQ/L (136-145); TROPONIN I < 0.02 NG/ML (< 0.10)
[2020-10-26] MEDS ORDERED: AVOD0.5C PO (12:55)
[2020-10-26] MEDS ORDERED: FLOM0.4C39 PO (12:55)
[2020-10-26] MEDS ORDERED: WARF-23 PO (12:55)
[2020-10-26] MEDS ORDERED: HOME MED LIST COMPLETE! XX SCH (13:00)
--- NOTE | 2020-10-26 13:07 | HPEPDOC ---
General Date of Admission 10/26/20 Date of Service: Oct 26, 2020 Chief Complaint The patient is a 85-year-old male admitted with a reason for visit of Diff Breathing. Source: Patient Exam Limitations: No limitations Severity: Moderate History of Present Illness Patient is 85 years old male with past medical history of atrial fibrillation on Coumadin, COPD on 2 L of oxygen at home, hypertension, type 2 diabetes, CHF presented to hospital with increased shortness of breath. Of note patient was recently hospitalized to [facility] due to hematuria and urinary retention. After discharge patient has been having increased shortness of breath associated with cough and brownish sputum production. No fever or chills . In ER patient was found to have low oxygen saturation requires BiPAP, leukocytosis of 15.4, hemoglobin 10.6, potassium 5.2, lactic acid 2.2 BNP 3444, CT abdomen/pelvis showed showed There is no bowel distention or obstruction. The bladder is markedly distended as an interval change. Chest x-ray showed cardiomegaly with possible left lower lobe infiltrate Home Medications Scheduled Acetaminophen (Acetaminophen 8 Hour) 650 Mg Tablet.er, 650 MG PO BID, (Reported) Aspirin (Aspirin EC) 81 Mg Tablet.dr, 81 MG PO DAILY, (Reported) Atenolol (Atenolol) 50 Mg Tablet, 50 MG PO DAILY, (Reported) Docusate Sodium (Stool Softener) 100 Mg Cap, 100 MG PO BID, (Reported) Dutasteride (Avodart) 0.5 Mg Capsule, 0.5 MG PO DAILY, (Reported) L.acidoph/L.bulg/B.bif/S.therm (Bacid Caplet) 1 Each Tablet, 1 TAB PO TID, (Reported) Loratadine (Claritin) 10 Mg Capsule, 10 MG PO DAILY, (Reported) Magnesium Oxide (Magnesium Oxide) 400 Mg Tablet, 400 MG PO DAILY, (Reported) Melatonin (Melatonin) 5 Mg Tablet, 5 MG PO QHS, (Reported) Metformin HCl (Metformin HCl) 500 Mg Tab, 500 MG PO BID, (Reported) Pantoprazole Sodium (Pantoprazole Sodium) 40 Mg Tablet.dr, 40 MG PO DAILY, (Reported) Potassium Chloride (Potassium Chloride) 10 Meq Tab.er.prt, 40 MEQ PO BID, (Reported) Simvastatin (Zocor) 80 Mg Tablet, 80 MG PO QHS, (Reported) Tamsulosin HCl (Flomax) 0.4 Mg Capsule, 0.4 MG PO DAILY, (Reported) Warfarin Sodium (Warfarin Sodium) 5 Mg Tablet, 5 MG PO QPM, (Reported) allopurinoL (allopurinoL) 300 Mg Tablet, 300 MG PO DAILY, (Reported) Scheduled PRN Acetaminophen (Acetaminophen) 325 Mg Tablet, 650 MG PO Q4H PRN for PAIN LEVEL 1- 4, (Reported) Bisacodyl (Dulcolax) 10 Mg Supp.rect, 10 MG [place] DAILY PRN for CONSTIPATION, (Reported) Milk Of Magnesia (Milk of Magnesia) 2,400 Mg/10 Ml Oral.susp, 10 ML PO DAILY PRN for CONSTIPATION, (Reported) Nitroglycerin (Nitroglycerin) 0.4 Mg Sub, 0.4 MG SL NITRO PRN for CHEST PAIN, (Reported) Sodium Phosphate,[place]-Dibasic (Enema) 133 Ml Enema, 1 OZË [place] DAILY PRN for CONSTIPATION, (Reported) Allergies Coded Allergies: No Known Allergies (Unverified , 08/17/20) Past Medical History Medical History PNEUMONIA CHF DYSPHAGIA AFIB HTN CKD STAGE 3 GOUT AND HYPERURICEMIA DM TYPE 2 GERD BPH HYPERCHOLESTEROLEMIA CHRONIC ANEMIA RT 11TH RIB FX RT RENAL CYST FUNCTIONAL QUADRIPLEGIA T11-12 FX Surgical History RT KNEE HEMATOMA EVACUATION 08/22/2020 LEFT HIP REPLACEMENT 2017 RIGHT KNEE REPLACEMENTS 1997 LEFT KNEE 1998 PROSTATE CA(TREATED WITH RADIATION) 2005 ULNAR NERVE TRANSPITION RIGHT ELBOW 2014 RIGHT AND LEFT EYE CATERACT REMOVAL 2017 RETINA REPAIR 2019 Family History FATHER: MOTHER: 1 SON(S) . SON OF HEART ATTACK. Social History * Smoker: former Smoker Alcohol: Denies Drugs: denies A-FIB/CHADSVASC A-FIB History Current/History of A-Fib/PAF?: Yes Current PO Anticoag Therapy: Yes Review of Systems Constitutional: Reports: Malaise; Denies: Chills, Fever Eyes: Denies: Pain ENT: Denies: Head Aches Skin: Denies: Rash, Lesions Pulmonary: Reports: Dyspnea, Cough Cardiovascular: Denies: Chest Pain Gastrointestinal: Denies: Nausea, Vomiting Genitourinary: Reports: Hematuria Hematologic: Reports: Bruising Endocrine: Denies: Polydipsia, Polyphagia Musculoskeletal: Denies: Neck Pain Neurological: Denies: Weakness Psych: Reports: Mood Normal Physical Examination General Exam: Positive: Alert, Cooperative ENT Exam: Positive: Atraumatic Neck Exam: Positive: JVD Chest Exam: Positive: Diminished Heart Exam: Positive: Irregular Rhythm Telemetry: Positive: Atrial fibrillation Abdomen Exam: Positive: Normal bowel sounds Extremity Exam: Positive: Clubbing; Negative: Cyanosis Skin Exam: Positive: Breakdown, Lesion (Right knee wound stage 2) Neuro Exam: Positive: Cranial Nerves 3-12 NL, Reflexes 2+ Psych Exam: Positive: Mental status NL Vital Signs Vital Signs Date Time Temp Pulse Resp B/P (MAP) Pulse Ox O2 Delivery O2 Flow Rate FiO2 10/26/20 11:24 40 10/26/20 11:19 72 16 162/76 (104) 100 NIPPV (BIPAP/CPAP) 10/26/20 11:15 4.0 10/26/20 09:26 98.0 Laboratory Data Labs 24H Laboratory Tests 2 10/26/20 09:09: Immature Granulocyte % (Auto) 2.2, Neutrophils (%) (Auto) 85.5H, Lymphocytes (%) (Auto) 4.4L, Monocytes (%) (Auto) 7.4, Eosinophils (%) (Auto) 0.1, Basophils (%) (Auto) 0.4, Neutrophils # (Auto) 13.2H, Lymphocytes # (Auto) 0.7L, Monocytes # (Auto) 1.1H, Eosinophils # (Auto) 0.0, Basophils # (Auto) 0.1, Nucleated Red Blood Cells % (auto) 0.0, Anion Gap 4L, Glomerular Filtration Rate > 60.0, Lactic Acid Level 2.2*H, Calcium Level 9.2, Total Bilirubin 0.3, Direct Bilirubin 0.1, Aspartate Amino Transf (AST/SGOT) 15, Alanine Aminotransferase (ALT/SGPT) 20, Alkaline Phosphatase 75, Total Creatine Kinase 24L, Creatine Kinase MB < 1.0, Creatine Kinase MB Relative Index 4.17H, Troponin I < 0.02, [id number]-Type Natriuretic Peptide 3444H, Total Protein 6.4, Albumin 2.5L, Albumin/Globulin Ratio 0.6, Thyroid Stimulating Hormone (TSH) 0.648 10/26/20 09:30: Prothrombin Time 15.8H, Prothromb Time International Ratio 1.22 10/26/20 10:09: Ammonia 17 10/26/20 10:13: Blood Gas Bicarbonate Standard 29.2, Venous Blood pH 7.244L, Venous Blood Partial Pressure CO2 83.8H, Venous Blood Partial Pressure O2 45.2, Venous Blood Total Carbon Dioxide 38.0H, Venous Blood HCO3 35.4H, Venous Blood Oxygen Saturation 77.1, Venous Blood Base Excess 5.7H CBC/BMP Laboratory Tests 10/26/20 09:09 Microbiology Microbiology 10/26/20 Blood Culture, Received Pending 10/26/20 Respiratory Virus Panel (PCR) (CHASTITY) - Final, Complete 10/26/20 Blood Culture, Received Pending Assessment/Plan Patient is 85 years old male with past medical history of atrial fibrillation on Coumadin, COPD on 2 L of oxygen at home, hypertension, type 2 diabetes, CHF presented to hospital with increased shortness of breath. Of note patient was recently hospitalized to [facility] due to hematuria and urinary retention. After discharge patient has been having increased shortness of br eath associated with cough and brownish sputum production. No fever or chills. In ER patient was found to have low oxygen saturation requires BiPAP, leukocytosis of 15.4, hemoglobin 10.6, potassium 5.2, lactic acid 2.2 BNP 3444, CT abdomen/pelvis showed showed There is no bowel distention or obstruction. The bladder is markedly distended as an interval change. Chest x-ray showed cardiomegaly with possible left lower lobe infiltrate Problems (1) Acute and chronic respiratory failure with hypercapnia Status: Acute Problem Text: Multifactorial most likely secondary to community-acquired pneumonia and CHF exacerbation superimposed with possible obesity hypoventilation syndrome VBG shows acute hypoxemic hypercapnic respiratory failure We will continue to monitor ABG Continue BiPAP (2) Pneumonia Status: Acute Problem Text: Hospital acquired pneumonia Chest x-ray showed possible left infiltrate We will proceed with CT chest for better visualization Patient has a leukocytosis of 15, cough and sputum production We will check sputum culture Levofloxacin IV (3) Atrial fibrillation Status: Chronic Problem Text: Heart rate under control I will stop Coumadin due to gross hematuria (4) Diabetes mellitus Status: Chronic Problem Text: Insulin sliding scale Diabetes diet (5) CHF (congestive heart failure) Status: Acute Problem Text: Will proceed with echo BNP elevated with plus JVD and leg swelling Lasix 40 mg IV every 8 hours I's and O's (6) Urinary retention Status: Chronic Problem Text: Follow-up with urologist in the outpatient settings Most likely secondary to enlarged prostate (7) Hematuria Status: Acute Problem Text: Patient was recently hospitalized with hematuria most likely secondary to oral anticoagulation versus bladder neoplasm Patient will need cystoscopy in the outpatient settings I will stop Coumadin for now due to gross hematuria (8) Functional quadriplegia Status: Chronic Problem Text: PT/OT (9) Macrocytic anemia Status: Chronic Problem Text: We will check iron panel, B12, folate (10) Wound healing, delayed Status: Chronic Problem Text: Status post debridement Appreciate/agree with community health specialist consult Plan / VTE VTE Prophylaxis Ordered?: Yes TIARRA ENNIS DO Oct 26, 2020 13:07
[2020-10-26] MEDS ORDERED: FLEET ENEMA PR PRN (13:10)
[2020-10-26] MEDS ORDERED: BISACODYL 10 MG SUPP PR PRN (13:10)
[2020-10-26] MEDS ORDERED: NITROGLYCERIN 0.4 MG SUBL TABLET SL PRN (13:10)
[2020-10-26] MEDS ORDERED: GLUCAGON INJ 1MG VIAL SC PRN (13:15)
[2020-10-26] MEDS ORDERED: GLUCOSE 4GM CHEW TABLET PO PRN (13:15)
[2020-10-26] MEDS ORDERED: DEXTROSE 50% 50 ML SYRINGE IV PRN (13:15)
[2020-10-26] MEDS ORDERED: ISOVUE-370 76% 100ML VIAL As Ordered ONE (13:19)
--- NOTE | 2020-10-26 14:11 | REP ---
INDICATION: Pneumonia COMPARISON: Multiple the latest 11/07/2018 a noncontrast enhanced exam TECHNIQUE: Standard helical technique after the intravenous administration of 100 cc Isovue 370 FINDINGS: There is no mediastinal or hilar adenopathy. There are small bilateral pleural effusions. The imaged upper abdomen is unchanged from 10/19/2020 CT examination of the abdomen the imaged osseous structures are within normal limits for the patient's age. There are spinal degenerative changes. Evaluation of the lung hussein shows respiratory motion artifact significantly obscuring the detail. In addition, there is lung field hypoexpansion. There is an area of consolidation in the left lower lobe with a few air bronchograms. Smaller area of consolidation is seen in the right lower. Both these areas abut pleural effusions. IMPRESSION: 1. Exam limitations as described above. 2. Small bilateral pleural effusions. 3. Likely bilateral lower lung field subsegmental atelectasis. Bibasilar pneumonia cannot be ruled out. 4. Other findings as described above. <Electronically signed by John Escobedo > 10/26/20 [id number]
[2020-10-26] MEDS: IPRATROPIUM 0.5MG/ALBUTEROL 2.5MG INH SOL UD 3ML (DUONEB) INH SCH ×3 (16:00→23:22)
[2020-10-26 16:09] LABS: IRON (FE) 21 UG/DL (65-175)
[2020-10-26 16:10] LABS: PERCENT SATURATION 10.7 % (19.7-50.0); TOTAL IRON BINDING CAPACITY 196 UG/DL (250-450)
[2020-10-26 16:24] LABS: FOLATE 8.8 NG/ML; VITAMIN B12 LEVEL 525 PG/ML
[2020-10-26 16:29] VITALS: BP 113/73
[2020-10-26] MEDS: MAGNESIUM OXIDE 400MG TAB (MAG-OX) PO SCH (17:47)
[2020-10-26] MEDS: LORATADINE 10 MG TAB PO SCH (17:51)
[2020-10-26] MEDS: TAMSULOSIN 0.4 MG CAP PO SCH (17:51)
[2020-10-26] MEDS: FUROSEMIDE 40MG/4ML VIAL (J1940) IV SCH (17:51)
[2020-10-26] MEDS: atenoloL 50 MG TAB PO SCH (17:51)
[2020-10-26] MEDS: LACTOBACILLUS ACIDOPHILUS CAP (BACID) PO SCH (17:51)
[2020-10-26] MEDS: allopurinoL 300 MG TAB PO SCH (17:52)
[2020-10-26] MEDS: PANTOPRAZOLE 40MG TAB (PROTONIX) PO SCH (17:52)
[2020-10-26] MEDS: ASPIRIN 81MG ENTERIC TABLET PO SCH (17:52)
[2020-10-26] MEDS: DUTASTERIDE 0.5 MG CAP (AVODART) PO SCH (17:54)
[2020-10-26] MEDS: HumaLOG INSULIN (NovoLOG) PER UNIT SC SCH ×2 (18:03→21:00)
[2020-10-26 20:22] VITALS: BP 88/42
[2020-10-26 20:23] VITALS: BP 137/88
--- NOTE | 2020-10-26 20:35 | ECHO ---
ECHOCARDIOGRAM DATE OF PROCEDURE: 10/26/2020 Age: Gender: Male Height: 188 cm Weight: 122 kg REFERRING PHYSICIAN: Fabian La M.D. INDICATION: Heart failure. MEASUREMENTS: IVS 1.3 cm LV 4.9 cm LVPW 1.2 cm LA 4.2 cm Aorta 3.5 cm IVC 2.4 cm FINDINGS: This study is of poor technical quality with very limited visualization. Patient is in atrial fibrillation with wide QRS complex. Left ventricle is normal size. Mild left ventricular hypertrophy is noted. Likely normal left ventricular (LV) systolic function based on limited views. No distinct wall motion abnormalities appreciated. Right ventricle was poorly visualized. I cannot comment on its size or systolic function. Both atria are enlarged. There is an echo artifact apparent in the right atrium most consistent with either pacemaker lead or some form of catheter. Aortic valve is sclerotic. It was poorly visualized, but based on limited images, there appears to be mild restriction of cusp mobility. There are also degenerative abnormalities of mitral valve, but mobility of leaflets is preserved. Tricuspid valve appears normal. Pulmonic valve was not seen. No pericardial effusion is noted. Inferior vena cava is dilated and there is no appreciable collapse with inspiration suggestive of likely elevated central venous pressure. Aortic root is normal. Aortic arch and abdominal aorta were not visualized. Doppler interrogation reveals no aortic insufficiency and trivial stenosis with mean gradient 9 mmHg. Mitral valve is functionally competent. Trace tricuspid insufficiency is noted. Calculated pulmonary artery pressure is about 30, responding to mild pulmonary artery hypertension. This is based on poor quality TR jet and should not be considered completely reliable. Evaluation of diastolic function is limited due to underlying atrial fibrillation. CONCLUSIONS: 1. Study is of poor technical quality, patient is in atrial fibrillation with wide QRS complex. 2. Normal left ventricular (LV) size with mild left ventricular hypertrophy (LVH) and probably normal LV systolic function. 3. Right ventricle was not well seen. 4. Biatrial enlargement. 5. Aortic sclerosis resulting in trivial stenosis. 6. Functionally competent mitral valve. 7. Elevated central venous pressure and at least mild pulmonary hypertension. MTDD
[2020-10-26 21:00] VITALS: BP 126/52
[2020-10-26] MEDS: DOCUSATE SODIUM 100MG CAPSULE PO SCH (21:00)
[2020-10-26] MEDS ORDERED: POTASSIUM CHLORIDE 10 MEQ SR TABLET PO SCH (21:00)
[2020-10-26] MEDS: RAMELTEON 8 MG TAB (ROZEREM) PO SCH (21:04)
[2020-10-26] MEDS: SIMVASTATIN 40 MG TAB PO SCH (21:04)
[2020-10-26 22:00] VITALS: BP 118/56
[2020-10-26 23:00] VITALS: BP 127/60
[2020-10-27] VITALS (11 sets, daily range): BP systolic 103–156; BP diastolic 53–92
[2020-10-27] MEDS: FUROSEMIDE 40MG/4ML VIAL (J1940) IV SCH ×3 (00:06→15:40)
[2020-10-27] MEDS: IPRATROPIUM 0.5MG/ALBUTEROL 2.5MG INH SOL UD 3ML (DUONEB) INH SCH ×6 (03:05→23:21)
[2020-10-27 05:14] LABS: HEMATOCRIT 30.2 % (42.0-52.0); HEMOGLOBIN 9.4 g/dl (13.5-17.5); MEAN CORPUSCULAR HEMOGLOBIN 33.1 pg (27.0-33.0); MEAN CORPUSCULAR HGB CONC 31.1 g/dl (32.0-36.5); MEAN CORPUSCULAR VOLUME 106.3 fl (80.0-96.0); PLATELET COUNT, AUTOMATED 244 10^3/uL (150-450); RED BLOOD COUNT 2.84 10^6/uL (4.30-6.10); WHITE BLOOD COUNT 12.7 10^3/uL (4.0-10.0)
[2020-10-27 05:44] LABS: ALBUMIN 2.3 GM/DL (3.2-5.2); ALT/SGPT 19 U/L (12-78); BILIRUBIN,TOTAL 0.5 MG/DL (0.2-1.0); BLOOD UREA NITROGEN 16 MG/DL (7-18); CALCIUM LEVEL 9.1 MG/DL (8.8-10.2); CARBON DIOXIDE LEVEL 36 MEQ/L (21-32); CHLORIDE LEVEL 101 MEQ/L (98-107); CREATININE FOR GFR 0.59 MG/DL (0.70-1.30); GLOMERULAR FILTRATION RATE > 60.0 (>35); GLUCOSE, FASTING 129 MG/DL (70-100); MAGNESIUM LEVEL 1.5 MG/DL (1.8-2.4); POTASSIUM SERUM 3.6 MEQ/L (3.5-5.1); SODIUM LEVEL 140 MEQ/L (136-145); TOTAL PROTEIN 6.4 GM/DL (6.4-8.2)
--- NOTE | 2020-10-27 06:28 | ECGEPIP ---
[facility] - ED Test Date: 2020-10-26 Pat Name: VASILIY BROWNE Department: Room: - Gender: Male Hat Measurer: : 1935 Requested By: Cleo Morgan Order Number: [id number] Reading MD: Davonte Gray Measurements Intervals Salvo Rate: 87 P: ID: QRS: -23 QRSD: 88 T: 81 QT: 340 QTc: 409 Interpretive Statements Atrial fibrillation with premature ventricular or aberrantly conducted complexes Inferior infarct , age undetermined Possible Anterior infarct , age undetermined NSTTW ABNORMALITY(S) SIMILAR TO 10/19/20 Electronically Signed on 10-27-2020 6:28:13 EDT by Davonte Gray
[2020-10-27] MEDS: HumaLOG INSULIN (NovoLOG) PER UNIT SC SCH ×4 (07:30→19:50)
[2020-10-27 08:17] LABS: ABG BASE EXCESS 11.2 (-2.0-2.0); ABG HCO3 36.8 MEQ/L (22.0-26.0); ABG O2 SATURATION 99.1 % (95.0-99.0); ABG PARTIAL PRESSURE O2 169.9 mmHg (75.0-100.0); ABG STANDARD HCO3 34.9 MEQ/L (22.0-26.0); ABG TOTAL CO2 38.4 MEQ/L (23.0-31.0); ABG pH (ARTERIAL) 7.451 UNITS (7.350-7.450)
[2020-10-27] MEDS: ENOXAPARIN 40MG/0.4ML SYRINGE (J1650 PER 10MG) SC SCH (09:05)
[2020-10-27] MEDS: DUTASTERIDE 0.5 MG CAP (AVODART) PO SCH (09:06)
[2020-10-27] MEDS: DOCUSATE SODIUM 100MG CAPSULE PO SCH ×2 (09:06→19:50)
[2020-10-27] MEDS: TAMSULOSIN 0.4 MG CAP PO SCH (09:06)
[2020-10-27] MEDS: MAGNESIUM OXIDE 400MG TAB (MAG-OX) PO SCH (09:06)
[2020-10-27] MEDS: ASPIRIN 81MG ENTERIC TABLET PO SCH (09:07)
[2020-10-27] MEDS: PANTOPRAZOLE 40MG TAB (PROTONIX) PO SCH (09:07)
[2020-10-27] MEDS: LORATADINE 10 MG TAB PO SCH (09:07)
[2020-10-27] MEDS: predniSONE 20 MG TAB PO SCH (09:07)
[2020-10-27] MEDS: atenoloL 50 MG TAB PO SCH (09:07)
[2020-10-27] MEDS: allopurinoL 300 MG TAB PO SCH (09:07)
[2020-10-27] MEDS: LACTOBACILLUS ACIDOPHILUS CAP (BACID) PO SCH ×3 (09:10→17:27)
--- NOTE | 2020-10-27 11:57 | IPNPDOC ---
Text Note Date of Service The patient was seen on 10/27/20. NOTE Subjective: Patient stated that he feels better today and his breathing impro [place]. No fever or chills overnight Objective: GENERAL APPEARANCE: Obese male HEENT: no scleral icterus, plus JVD, EOMI CARDIOVASCULAR: Irregularly irregular LUNGS: Diminished lung sounds bilaterally ABDOMEN: soft & not tender w palpation, obese MUSCULOSKELETAL: no cyanosis, +2 swelling INTEGUMENT: no generalized pallor NEUROLOGICAL: cranial nerve function from 2-12 intact, follows commands, speech not dysarthric Assessment and plan Patient is 85 years old male with past medical history of atrial fibrillation on Coumadin, COPD on 2 L of oxygen at home, hypertension, type 2 diabetes, CHF presented to hospital with increased shortness of breath. Of note patient was recently hospitalized to [facility] due to hematuria and urinary retention. After discharge patient has been having increased shortness of breath associated with cough and brownish sputum production. No fever or chills. In ER patient was found to have low oxygen saturation requires BiPAP, leukocytosis of 15.4, hemoglobin 10.6, potassium 5.2, lactic acid 2.2 BNP 3444, CT abdomen/pelvis showed showed There is no bowel distention or obstruction. The bladder is markedly distended as an interval change. Chest x-ray showed cardiomegaly with possible left lower lobe infiltrate Problems (1) Acute and chronic respiratory failure with hypercapnia Multifactorial most likely secondary to community-acquired pneumonia and CHF exacerbation superimposed with possible obesity hypoventilation syndrome VBG shows acute hypoxemic hypercapnic respiratory failure ABG was done in the morning showed significant improvement. Patient has history of obstructive sleep apnea however he did not use recommended CPAP (2) Pneumonia Hospital acquired pneumonia Chest x-ray showed possible left infiltrate. CT chest showed Small bilateral pleural effusions. Likely bilateral lower lung field subsegmental atelectasis. Bibasilar pneumonia cannot be ruled out leukocytosis improved Await sputum culture Continue levofloxacin IV day 2 (3) Atrial fibrillation Heart rate under control I stopped Coumadin due to gross hematuria yesterday. Patient will need to discuss anticoagulation therapy with PCP and urologist. Patient had multiple episodes of hematuria. (4) Diabetes mellitus Insulin sliding scale Diabetes diet (5) acute diastolic CHF (congestive heart failure) echo showed biatrial enlargement with mild pulmonary hypertension BNP elevated with plus JVD and leg swelling Lasix 40 mg IV every 8 hours I's and O's (6) Urinary retention Follow-up with urologist in the outpatient settings Most likely secondary to enlarged prostate (7) Hematuria Resolved today patient was recently hospitalized with hematuria most likely secondary to oral anticoagulation versus bladder neoplasm Patient will need cystoscopy in the outpatient settings (8) Functional quadriplegia/deconditioning PT/OT (9) Macrocytic anemia We will check iron panel, B12, folate (10) Wound healing, delayed Status post debridement Appreciate/agree with auto radiator specialist consult Palliative care encounter Overall prognosis is poor patient has multiple comorbidities. His requested hospice consult. VS,Fishbone, I+O VS, Fishbone, I+O Laboratory Tests 10/27/20 05:00 Vital Signs Date Time Temp Pulse Resp B/P (MAP) Pulse Ox O2 Delivery O2 Flow Rate FiO2 10/27/20 09:07 76 149/69 10/27/20 08:00 97.8 20 97 Nasal Cannula 2.0 10/27/20 07:36 35 I&O- Last 24 Hours up to 6 AM 10/27/20 06:00 Intake Total 1100 ml Output Total 2630 ml Balance -1530 ml TIARRA ENNIS DO Oct 27, 2020 11:57
[2020-10-27] MEDS ORDERED: LevoFLOXacin IV 750 MG in IV 1 EA IV SCH (13:00)
[2020-10-27] MEDS ORDERED: SLF 3 ML SYR IV PRN (17:10)
[2020-10-27] MEDS: ACETAMINOPHEN 650MG ER TAB (TYLENOL ARTHRITIS) PO PRN (17:27)
[2020-10-27] MEDS: RAMELTEON 8 MG TAB (ROZEREM) PO SCH (19:49)
[2020-10-27] MEDS: SIMVASTATIN 40 MG TAB PO SCH (19:49)
[2020-10-27] MEDS ORDERED: ACETAMINOPHEN 650MG ER TAB (TYLENOL ARTHRITIS) PO SCH (21:00)
[2020-10-28] MEDS: SLF 3 ML SYR IV SCH ×4 (01:50→21:03)
[2020-10-28] MEDS: FUROSEMIDE 40MG/4ML VIAL (J1940) IV SCH ×2 (01:51→08:51)
[2020-10-28] MEDS: IPRATROPIUM 0.5MG/ALBUTEROL 2.5MG INH SOL UD 3ML (DUONEB) INH SCH ×3 (03:02→10:51)
[2020-10-28 08:34] LABS: BASO % 0.4 % (0.0-1.0); EOS % 0.2 % (0.0-3.0); HEMATOCRIT 29.9 % (42.0-52.0); HEMOGLOBIN 9.3 g/dl (13.5-17.5); LYMPH # 1.4 10^3/uL (1.5-5.0); LYMPH % 14.7 % (24.0-44.0); MEAN CORPUSCULAR HEMOGLOBIN 33.2 pg (27.0-33.0); MEAN CORPUSCULAR HGB CONC 31.1 g/dl (32.0-36.5); MEAN CORPUSCULAR VOLUME 106.8 fl (80.0-96.0); MONO # 0.8 10^3/uL (0.0-0.8); MONO % 8.4 % (2.0-8.0); NEUTROPHILS % 74.2 % (36.0-66.0); PLATELET COUNT, AUTOMATED 245 10^3/uL (150-450); WHITE BLOOD COUNT 9.5 10^3/uL (4.0-10.0)
[2020-10-28] MEDS: ASPIRIN 81MG ENTERIC TABLET PO SCH (08:50)
[2020-10-28] MEDS: DUTASTERIDE 0.5 MG CAP (AVODART) PO SCH (08:50)
[2020-10-28] MEDS: DOCUSATE SODIUM 100MG CAPSULE PO SCH ×2 (08:50→21:02)
[2020-10-28] MEDS: ENOXAPARIN 40MG/0.4ML SYRINGE (J1650 PER 10MG) SC SCH (08:50)
[2020-10-28] MEDS: LACTOBACILLUS ACIDOPHILUS CAP (BACID) PO SCH (08:50)
[2020-10-28] MEDS: TAMSULOSIN 0.4 MG CAP PO SCH (08:51)
[2020-10-28] MEDS: MAGNESIUM OXIDE 400MG TAB (MAG-OX) PO SCH (08:51)
[2020-10-28] MEDS: allopurinoL 300 MG TAB PO SCH (08:52)
[2020-10-28] MEDS: LORATADINE 10 MG TAB PO SCH (08:52)
[2020-10-28] MEDS: atenoloL 50 MG TAB PO SCH (08:52)
[2020-10-28] MEDS: predniSONE 20 MG TAB PO SCH (08:52)
[2020-10-28] MEDS: PANTOPRAZOLE 40MG TAB (PROTONIX) PO SCH (08:52)
[2020-10-28] MEDS: HumaLOG INSULIN (NovoLOG) PER UNIT SC SCH (08:53)
[2020-10-28 09:07] LABS: ALBUMIN 2.2 GM/DL (3.2-5.2); ALT/SGPT 25 U/L (12-78); BILIRUBIN,TOTAL 0.3 MG/DL (0.2-1.0); BLOOD UREA NITROGEN 24 MG/DL (7-18); CALCIUM LEVEL 8.3 MG/DL (8.8-10.2); CARBON DIOXIDE LEVEL 37 MEQ/L (21-32); CHLORIDE LEVEL 101 MEQ/L (98-107); GLOMERULAR FILTRATION RATE > 60.0 (>35); GLUCOSE, FASTING 132 MG/DL (70-100); MAGNESIUM LEVEL 1.6 MG/DL (1.8-2.4); POTASSIUM SERUM 3.7 MEQ/L (3.5-5.1); SODIUM LEVEL 143 MEQ/L (136-145); TOTAL PROTEIN 5.7 GM/DL (6.4-8.2)
[2020-10-28] MEDS ORDERED: MORPHINE 2 MG/ML 1ML VIAL (J2270) IV PRN (11:00)
[2020-10-28] MEDS ORDERED: HYOSCYAMINE SULFATE 0.125 MG SUBL TABLET PO PRN (11:00)
[2020-10-28] MEDS ORDERED: FLEET ENEMA PR PRN (11:00)
[2020-10-28] MEDS ORDERED: ONDANSETRON 4 MG ORAL DISINTEGRATING TAB PO PRN (11:00)
[2020-10-28] MEDS ORDERED: SCOPOLAMINE 1MG TRANSDERMAL PATCH TOP PRN (11:00)
[2020-10-28] MEDS ORDERED: ATROPINE SULFATE 1% OP SOLN 2 ML BTL SL PRN (11:00)
[2020-10-28] MEDS ORDERED: ONDANSETRON 4MG/2ML VIAL IV PRN (11:00)
[2020-10-28] MEDS ORDERED: LORazepam 2 MG/ML VIAL IV PRN (11:00)
--- NOTE | 2020-10-28 13:55 | IPNPDOC ---
Text Note Date of Service The patient was seen on 10/28/20. NOTE Subjective: Patient decided to be at home with hospice care. [employer] protocol pl aced Objective: GENERAL APPEARANCE: Obese male HEENT: no scleral icterus, plus JVD, EOMI CARDIOVASCULAR: Irregularly irregular LUNGS: Diminished lung sounds bilaterally ABDOMEN: soft & not tender w palpation, obese MUSCULOSKELETAL: no cyanosis, +2 swelling INTEGUMENT: no generalized pallor NEUROLOGICAL: cranial nerve function from 2-12 intact, follows commands, speech not dysarthric Assessment and plan Patient is 85 years old male with past medical history of atrial fibrillation on Coumadin, COPD on 2 L of oxygen at home, hypertension, type 2 diabetes, CHF presented to hospital with increased shortness of breath. Of note patient was recently hospitalized to [facility] due to hematuria and urinary retention. After discharge patient has been having increased shortness of br eath associated with cough and brownish sputum production. No fever or chills. In ER patient was found to have low oxygen saturation requires BiPAP, leukocytosis of 15.4, hemoglobin 10.6, potassium 5.2, lactic acid 2.2 BNP 3444, CT abdomen/pelvis showed showed There is no bowel distention or obstruction. The bladder is markedly distended as an interval change. Chest x-ray showed cardiomegaly with possible left lower lobe infiltrate. 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 CT chest showed Small bilateral pleural effusions. Likely bilateral lower lung field subsegmental atelectasis. Bibasilar pneumonia cannot be ruled out (3) Atrial fibrillation (4) Diabetes mellitus (5) acute diastolic CHF (congestive heart failure) (6) Urinary retention (7) Hematuria (8) Functional quadriplegia/deconditioning The patient has a medical condition which requires positioning of the bodily in ways not feasible with an ordinary bed. Elevation of the head/upper body less than 30 degrees, does not usually require the use of a hospital bed. The pt The beneficiary requires traction equipment, which can only be attached to a hos pital bed and the pt requires frequent changes in body position and/or has any immediate need for a change in body position (9) Macrocytic anemia (10) Wound healing, delayed Palliative care encounter VS,Makenna, I+O VS, Makenna, I+O Laboratory Tests 10/28/20 08:19 Vital Signs Date Time Temp Pulse Resp B/P (MAP) Pulse Ox O2 Delivery O2 Flow Rate FiO2 10/28/20 08:00 2.0 10/27/20 20:00 97.8 78 18 115/76 (89) 93 Nasal Cannula 10/27/20 07:36 35 I&O- Last 24 Hours up to 6 AM 10/28/20 05:59 Intake Total 1140 ml Output Total 1325 ml Balance -185 ml TIARRA ENNIS DO Oct 28, 2020 13:55
[2020-10-28] MEDS: ACETAMINOPHEN TAB 650MG DOSE (2X325MG) PO PRN ×2 (15:09→21:09)
[2020-10-28] MEDS: RAMELTEON 8 MG TAB (ROZEREM) PO SCH (21:02)
[2020-10-29] MEDS: SLF 3 ML SYR IV SCH ×3 (06:00→20:59)
[2020-10-29] MEDS: MORPHINE 10MG/0.5ML ORAL CONCENTRATE SOLUTION U/D SL PRN ×2 (09:29→18:06)
[2020-10-29] MEDS: LORATADINE 10 MG TAB PO SCH (09:33)
[2020-10-29] MEDS: DOCUSATE SODIUM 100MG CAPSULE PO SCH ×2 (09:33→20:58)
[2020-10-29] MEDS: ALBUTEROL 90 MCG/ACT 8GM HFA INHALER INH PRN ×2 (15:28→21:07)
[2020-10-29] MEDS: LORazepam 1 MG TAB PO PRN (20:58)
[2020-10-29] MEDS: RAMELTEON 8 MG TAB (ROZEREM) PO SCH (20:58)
[2020-10-29] MEDS: ACETAMINOPHEN 650MG ER TAB (TYLENOL ARTHRITIS) PO PRN (20:59)
[2020-10-30] MEDS: ACETAMINOPHEN TAB 650MG DOSE (2X325MG) PO PRN ×2 (05:27→11:01)
[2020-10-30] MEDS: LORazepam 1 MG TAB PO PRN (05:27)
[2020-10-30] MEDS: SLF 3 ML SYR IV SCH ×3 (05:28→20:48)
[2020-10-30] MEDS: DOCUSATE SODIUM 100MG CAPSULE PO SCH ×2 (09:22→20:44)
[2020-10-30] MEDS: LORATADINE 10 MG TAB PO SCH (09:22)
[2020-10-30] MEDS: ALBUTEROL 90 MCG/ACT 8GM HFA INHALER INH PRN ×2 (13:16→21:20)
[2020-10-30] MEDS: MORPHINE 10MG/0.5ML ORAL CONCENTRATE SOLUTION U/D SL PRN ×2 (13:20→19:04)
[2020-10-30] MEDS: ACETAMINOPHEN 650MG ER TAB (TYLENOL ARTHRITIS) PO PRN (20:44)
[2020-10-30] MEDS: RAMELTEON 8 MG TAB (ROZEREM) PO SCH (20:44)
[2020-10-31] MEDS: SLF 3 ML SYR IV SCH ×2 (05:46→14:07)
[2020-10-31] MEDS: LORATADINE 10 MG TAB PO SCH (08:22)
[2020-10-31] MEDS: DOCUSATE SODIUM 100MG CAPSULE PO SCH (08:22)
[2020-10-31] MEDS: MORPHINE 10MG/0.5ML ORAL CONCENTRATE SOLUTION U/D SL PRN ×3 (09:40→18:03)
[2020-10-31] MEDS: ALBUTEROL 90 MCG/ACT 8GM HFA INHALER INH PRN ×2 (09:46→14:49)
[2020-10-31] MEDS ORDERED: ATRO1OPD SL (12:19)
[2020-10-31] MEDS ORDERED: HYOS125TA PO (12:19)
[2020-10-31] MEDS ORDERED: ONDA4TAB6 PO (12:19)
[2020-10-31] MEDS ORDERED: MORP1SOL SL (12:19)
[2020-10-31] MEDS ORDERED: SCOP1PAT2 TOP (12:19)
[2020-10-31] MEDS ORDERED: BISA10SU PR (12:19)
[2020-10-31] MEDS ORDERED: ATIV1TAB7 PO (12:19)
[2020-10-31 15:07] LABS: BODY FLUID CULTURE Not indicated. (.); ORGANISM ID Not indicated. (.); SPECIMEN SOURCE Urine (.); URINE STREP PNEUMONIAE ANTIGEN Negative (Negative)
--- NOTE | 2020-10-31 17:39 | DS.PDOC ---
Discharge Summary General Date of Admission Oct 26, 2020 at 12:45 Date of Discharge 10/31/20 Discharge Summary PROCEDURES PERFORMED DURING STAY: [None]. ADMITTING DIAGNOSES: Acute and chronic respiratory failure with hypercapnia Pneumonia Atrial fibrillation Diabetes mellitus acute diastolic CHF (congestive heart failure) Urinary retention Hematuria Functional quadriplegia/deconditioning Macrocytic anemia Wound healing, delayed Palliative care encounter DISCHARGE DIAGNOSES: Acute and chronic respiratory failure with hypercapnia Pneumonia Atrial fibrillation Diabetes mellitus acute diastolic CHF (congestive heart failure) Urinary retention Hematuria Functional quadriplegia/deconditioning Macrocytic anemia Wound healing, delayed Palliative care encounter COMPLICATIONS/CHIEF COMPLAINT: Chf,Pneumonia. HISTORY OF PRESENT ILLNESS: Patient is 85 years old male with past medical history of atrial fibrillation on Coumadin, COPD on 2 L of oxygen at home, hypertension, type 2 diabetes, CHF presented to hospital with increased shortness of breath. Of note patient was recently hospitalized to [facility] due to hematuria and urinary retention. After discharge patient has been having increased shortness of breath associated with cough and brownish sputum production. No fever or chills. In ER patient was found to have low oxygen saturation requires BiPAP, leukocytosis of 15.4, hemoglobin 10.6, potassium 5.2, lactic acid 2.2 BNP 3444, CT abdomen/pelvis showed showed There is no bowel distention or obstruction. The bladder is markedly distended as an interval change. Chest x-ray showed cardiomegaly with possible left lower lobe infiltrate. 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 ALLERGIES: Please see below. PHYSICAL EXAMINATION ON DISCHARGE: VITAL SIGNS: Please see below. GENERAL APPEARANCE: Obese male HEENT: no scleral icterus, plus JVD, EOMI CARDIOVASCULAR: Irregularly irregular LUNGS: Diminished lung sounds bilaterally ABDOMEN: soft & not tender w palpation, obese MUSCULOSKELETAL: no cyanosis, +2 swelling INTEGUMENT: no generalized pallor NEUROLOGICAL: cranial nerve function from 2-12 intact, follows commands, speech not dysarthric LABORATORY DATA: Please see below. PROGNOSIS: Poor ACTIVITY: [As tolerated]. DIET: Regular DISCHARGE INSTRUCTIONS: Follow-up with hospice care TIME SPENT ON DISCHARGE: 40 minutes. Vital Signs/I&Os Vital Signs Date Time Temp Pulse Resp B/P (MAP) Pulse Ox O2 Delivery O2 Flow Rate FiO2 10/31/20 07:30 2.0 10/30/20 19:04 16 10/30/20 17:44 88 Room Air 10/27/20 20:00 97.8 78 115/76 (89) 10/27/20 07:36 35 I&O- Last 24 Hours up to 6 AM 10/31/20 06:00 Intake Total 470 ml Output Total 700 ml Balance -230 ml Microbiology Microbiology 10/26/20 Blood Culture - Final, Complete NO GROWTH AFTER 5 DAYS 10/26/20 Respiratory Virus Panel (PCR) (CHASTITY) - Final, Complete 10/26/20 Blood Culture - Final, Complete NO GROWTH AFTER 5 DAYS Discharge Medications Scheduled Acetaminophen (Acetaminophen 8 Hour) 650 Mg Tablet.er, 650 MG PO BID, (Reported) Docusate Sodium (Stool Softener) 100 Mg Cap, 100 MG PO BID, (Reported) Melatonin (Melatonin) 5 Mg Tablet, 5 MG PO QHS, (Reported) Scheduled PRN Atropine Sulfate (Atropine Sulfate) 1% 2ML Drops, 1 DROP SL Q2HP PRN for TERMINAL SECRETIONS Bisacodyl (Bisacodyl) 10 Mg Supp.rect, 10 MG DE DAILY PRN for CONSTIPATION Hyoscyamine Sulfate (Hyoscyamine Sulfate) 0.125 Mg Tab.subl, 0.125 MG PO Q4HP PRN for TERMINAL SECRETIONS Lorazepam (Ativan) 1 Mg Tablet, 2 MG PO Q2HP PRN for ANXIETY Morphine Sulfate (Morphine Sulfate Concentrate) 100 Mg/5 Ml Solution, 2 MG SL Q2HP PRN for SEVERE PAIN (PS 8-10) Ondansetron (Ondansetron Odt) 4 Mg Tab.rapdis, 4 MG PO Q6HP PRN for NAUSEA OR VOMITING Scopolamine (Transderm-Scop) 1 Each Patch.td.3, 1 MG TOP Q3DP PRN for EXCESSIVE SECRETIONS Sodium Phosphate,[place]-Dibasic (Enema) 133 Ml Enema, 1 ZO[place] DE DAILY PRN for CONSTIPATION, (Reported) Allergies Coded Allergies: No Known Allergies (Unverified , 08/17/20) TIARRA ENNIS DO Oct 31, 2020 17:39
== END 2020-10-31 18:45 | disposition hospice, home (50) | DRG 193 ==
LOC: EDBD 08:57 → M ED 08:57 → M ED INP 12:45 → ENRESERV 13:50 → M ICU 15:39 → M PCU 10-27 12:20 → M MS5PR 10-29 10:05
PROVIDERS: ADMIT Internal Medicine; ATTEND Internal Medicine
DX: J18.9 Pneumonia, unspecified organism (principal); J96.22 Acute and chronic respiratory failure with hypercapnia; I50.31 Acute diastolic (congestive) heart failure; R53.2 Functional quadriplegia; I48.20 Chronic atrial fibrillation, unspecified; I13.0 Hypertensive heart and chronic kidney disease with heart failure and stage 1 through stage 4 chronic kidney disease, or unspecified chronic kidney disease; E11.9 Type 2 diabetes mellitus without complications; Z51.5 Encounter for palliative care; R31.9 Hematuria, unspecified; R33.9 Retention of urine, unspecified; D53.9 Nutritional anemia, unspecified; Z79.01 Long term (current) use of anticoagulants; J44.9 Chronic obstructive pulmonary disease, unspecified; Z79.899 Other long term (current) drug therapy; Z79.82 Long term (current) use of aspirin; N18.30 Chronic kidney disease, stage 3 unspecified; M10.9 Gout, unspecified; K21.9 Gastro-esophageal reflux disease without esophagitis; N40.0 Benign prostatic hyperplasia without lower urinary tract symptoms; Z96.642 Presence of left artificial hip joint; Z96.651 Presence of right artificial knee joint; Z85.46 Personal history of malignant neoplasm of prostate; Z98.41 Cataract extraction status, right eye; Z98.42 Cataract extraction status, left eye

== ENCOUNTER → 2020-10-26 | Outpatient (REF) | payer MEDICARE, OTHER ==
[2020-10-26 07:46] LABS: INR 1.15; PROTHROMBIN TIME 15.1 SECONDS (12.7-14.5)
== END ==
LOC: SKLAB4 07:00
PROVIDERS: ATTEND Internal Medicine
DX: I48.91 Unspecified atrial fibrillation (principal); Z79.01 Long term (current) use of anticoagulants

== ENCOUNTER → 2020-10-27 | Outpatient (REF) | payer MEDICARE, OTHER ==
[~2020-10-27] MED LIST changes: +ATIV1TAB7 PO; +ATRO1OPD SL; +BISA10SU PR; +HYOS125TA PO; +MORP1SOL SL; +ONDA4TAB6 PO; +SCOP1PAT2 TOP
== END ==
LOC: SKLAB4 10:57
PROVIDERS: ATTEND Internal Medicine
DX: Z51.81 Encounter for therapeutic drug level monitoring (principal); Z79.01 Long term (current) use of anticoagulants

== ENCOUNTER → 2020-11-01 | Outpatient (REF) | LOC: SKLAB4 10:46 | PROVIDERS: ATTEND Internal Medicine | DX: I48.91 Unspecified atrial fibrillation (principal) ==